=== PATIENT | female | born 1980 | race Caucasian/White ===

== ENCOUNTER → 2017-11-10 10:06 | Outpatient (CLI) | payer OTHER, SELFPAY ==
--- NOTE | 2017-11-10 10:11 | RAD_ITS ---
STUDY: X-RAY CHEST REASON FOR EXAM: Female, 36 years old. Psoriatic arthropathy. TECHNIQUE: PA and lateral views of the chest. COMPARISON: July 10, 2012. FINDINGS: The lungs are clear and expanded. There is no demonstrated pleural abnormality. Normal size heart. Normal mediastinum and paige. Normal visualized pulmonary arteries. Normal visualized aortic arch and descending thoracic aorta. Normal visualized thoracic spine. Normal visualized ribs, clavicles, and shoulders. There is no demonstrated abnormality of the visualized soft tissue structures of the upper abdomen. RAD/Chest PA and Lateral IMPRESSION: No acute cardiopulmonary disease or interval change. Electronically Signed: Kalin Barrios DO at 23:52 EDT Tel [phone], Service support ,
--- NOTE | 2017-11-10 10:11 | RAD_ITS ---
STUDY: X-RAY - PELVIS REASON FOR EXAM: Female, 36 years old. Psoriatic arthropathy. TECHNIQUE: One view of the pelvis was obtained. COMPARISON: None. FINDINGS: There is a non-specific bowel gas pattern. Normal visualized soft tissue structures. Normal bilateral iliac wings, sacroiliac joints and visualized sacrum. Normal visualized bilateral superior and inferior pubic rami. Normal pubic symphysis. Normal ischial tuberosities. Normal visualized right femoral head. Normal right acetabulum. Normal right hip joint. Normal visualized left femoral head. Normal left acetabulum. Normal left hip joint. RAD/Pelvis 1 or 2 Views IMPRESSION: Normal x-ray examination of the pelvis. Electronically Signed: Kalin Barrios DO at 23:53 EDT Tel [phone], Service support ,
[2017-11-10 12:47] LABS: AST(SGOT) 17 U/L (15-37); Alanine Aminotransfer ALT/SGPT 23 U/L (13-56); Albumin, Serum 3.7 g/dL (3.2-5.0); Alkaline Phosphatase 110 U/L (45-117); Anion Gap 10 (5-15); BUN 9 mg/dL (7-18); BUN/Creat Ratio 11.1 RATIO (10-20); CRP < 2.90 mg/L (0.0-3.0); Calcium,Total 9.2 mg/dL (8.5-10.1); Chloride 105 mmol/L (98-107); Creatinine, Serum 0.81 mg/dL (0.55-1.02); EST Glomerular Filtration Rate 83 mL/min (>60); Est Glom Filt Rate - Afr Amer 101 mL/min (>60); Globulin 3.8 g/dL (2.2-4.2); Glucose 89 mg/dL (74-106); Potassium 4.1 mmol/L (3.5-5.1); Protein, Total 7.5 g/dL (6.4-8.2); Rheumatoid Factor < 10.0 IU/mL (<15); Sodium Level 141 mmol/L (136-145)
[2017-11-10 13:20] LABS: Absolute Lymphocyte Count 1.49 X10^3/ul (0.83-4.51); Absolute Neutrophil Count 2.5 X10^3/uL (2.0-7.7); Basophil# 0.04 X10^3/uL; Basophil% 0.9 % (0-1); Eosinophil# 0.06 X10^3/uL; Eosinophils% 1.3 % (0-5); Hematocrit 42.8 % (37-47); Hemoglobin 14.2 g/dl (12.0-15.0); Lymphocyte # 1.49 X10^3/ul (4.0); Lymphocyte % 32.3 % (19-41); Mean Corp Hgb Conc 33.2 g/gl (32-36); Mean Corpuscular Hgb 30.3 pg (27.0-32.0); Mean Corpuscular Volume 91.3 fL (81-99); Mean Platelet Vol. 9.5 fl (6.2-12.0); Monocyte# 0.52 X10^3/uL; Monocyte% 11.3 % (0-10); Neutrophil # 2.51 X10^3/uL (2.7-7.7); Neutrophil % 54.2 % (47-70); Platelet Count 332 K/mm3 (150-450); RBC Distribution Width CV 12.9 % (11.6-14.6); RBC Distribution Width SD 42.6 fl (35.1-43.9); Red Blood Count 4.69 M/mm3 (4.2-5.4); White Blood Count 4.6 K/mm3 (4.4-11.0)
[2017-11-10 13:24] LABS: POSITIVE COUNT NO; POSITIVE DIFFERENTIAL NO; POSITIVE MORPHOLOGY NO
[2017-11-10 13:42] LABS: Erythrocyte Sedimentation Rate 4 mm/hr (0-20)
[2017-11-12 09:09] LABS: ANTINUCLEAR ANTIBODIES DIRECT Negative (Negative)
[2017-11-16 18:43] LABS: QNTFERON TB Ag Minus Nil Value < 0 IU/mL (.); QNTFERON TB Ag Value 0.05 IU/mL (.); QNTFERON TB Mitogen Value > 10.00 IU/mL (.); QNTFERON TB Nil Value 0.06 IU/mL (.)
[2017-11-17 11:27] LABS: CCP IgG Antibodies 5 units (0-19); HEPATITIS B SURFACE AG Negative (Negative); HLA B27 Positive (.); Hep B Surface Antibodies Reactive (.); Hep C Antibodies <0.1 s/co ratio (0.0-0.9); QNTIFERON TB Gold Negative (Negative)
== END ==
PROVIDERS: Family Provider Family Medicine; PCP Family Medicine; Visit Provider Internal Medicine Rheumatology
DX: L40.59 Other psoriatic arthropathy (principal); L40.8 Other psoriasis; M51.37 Other intervertebral disc degeneration, lumbosacral region
CPT/HCPCS: 36415; 71046; 72170; 80053; 81374; 85025; 85652; 86038; 86140; 86200; 86431; 86480; 86706; 86803; 87340

== ENCOUNTER → 2018-02-08 16:23 | Outpatient (CLI) | payer OTHER, SELFPAY ==
[2017-01-12 10:55] VITALS: BMI 32.1
[2018-02-08 18:04] LABS: Absolute Lymphocyte Count 2.29 X10^3/ul (0.83-4.51); Absolute Neutrophil Count 3.1 X10^3/uL (2.0-7.7); Basophil# 0.03 X10^3/uL; Basophil% 0.5 % (0-1); Eosinophil# 0.11 X10^3/uL; Eosinophils% 1.7 % (0-5); Hematocrit 41.8 % (37-47); Lymphocyte # 2.29 X10^3/ul (4.0); Lymphocyte % 36.3 % (19-41); Mean Corp Hgb Conc 33.5 g/gl (32-36); Mean Corpuscular Hgb 30.3 pg (27.0-32.0); Mean Corpuscular Volume 90.5 fL (81-99); Mean Platelet Vol. 10.1 fl (6.2-12.0); Monocyte# 0.76 X10^3/uL; Neutrophil # 3.11 X10^3/uL (2.7-7.7); Neutrophil % 49.3 % (47-70); Platelet Count 343 K/mm3 (150-450); RBC Distribution Width CV 12.5 % (11.6-14.6); Red Blood Count 4.62 M/mm3 (4.2-5.4); White Blood Count 6.3 K/mm3 (4.4-11.0)
[2018-02-08 18:08] LABS: AST(SGOT) 15 U/L (15-37); Alanine Aminotransfer ALT/SGPT 21 U/L (13-56); Albumin, Serum 3.8 g/dL (3.2-5.0); Alkaline Phosphatase 111 U/L (45-117); Anion Gap 4 (5-15); BUN 11 mg/dL (7-18); BUN/Creat Ratio 14.1 RATIO (10-20); Calcium,Total 9.6 mg/dL (8.5-10.1); Chloride 105 mmol/L (98-107); Creatinine, Serum 0.78 mg/dL (0.55-1.02); EST Glomerular Filtration Rate 88 mL/min (>60); Est Glom Filt Rate - Afr Amer 106 mL/min (>60); Globulin 3.7 g/dL (2.2-4.2); Glucose 87 mg/dL (74-106); Protein, Total 7.5 g/dL (6.4-8.2); Sodium Level 138 mmol/L (136-145)
[2018-02-08 18:18] LABS: POSITIVE COUNT NO; POSITIVE DIFFERENTIAL NO; POSITIVE MORPHOLOGY NO
--- OUTSIDE RECORDS SUMMARY | 2018-05-13 09:09 | XMS RPT_ITS ---
:1980 Author Organization OH[facility] Care Team Providers Name Role Phone DARREN IVORY Attending Unavailable DARREN IVORY Attending Unavailable MARICHUY GONZALEZ (HAND FILER BALANCE WHEEL) Attending Unavailable MARICHUY GONZALEZ (HAND FILER BALANCE WHEEL) Referring Unavailable DARREN IVORY Attending Unavailable DARREN IVORY Referring Unavailable Lesia Carrera Attending Unavailable Lesia Carrera Referring Unavailable Stuart Grimes Primary Care Unavailable Lesia Carrera Attending Unavailable Lesia Carrera Referring Unavailable Stuart Grimes Primary Care Unavailable PROBLEMS PROBLEMS DATE TYPE CONDITION / CODE ATTENDING STATUS SOURCE 11/10/2017 Unknown 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, 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 / Hospital L40.59(ICD-10) Repository 11/10/2017 Unknown L40.8 - Other Vellanki, Lesia Active [facility] psoriasis / Community L40.8(ICD-10) Hospital Repository 11/10/2017 Unknown M51.37 - Other Debi Lesia Active [facility] intervertebral disc [facility] degeneration, Hospital lumbosacral region / Repository M51.37(ICD-10) 09/16/2017 Active Pain in unspecified NA Active [facility] M25.50(ICD-10) [facility] Repository 08/17/2017 Active Change in bowel NA Active [facility] R19.4(ICD-10) [facility] Repository 08/17/2017 Active Diarrhea, NA Active [facility] unspecified / [facility] R19.7(ICD-10) [facility] Repository 08/17/2017 Active Gastro-esophageal NA Active [facility] reflux disease [facility] without esophagitis [facility] / K21.9(ICD-10) Repository PROCEDURES PROCEDURES No Procedure Records FoundRESULTS RESULTS COMPREHENSIVE METABOLIC Collected: 02/08/2018 Status: F Source: [facility] [place] 4:27 PM [facility] REPOSITORY TYPE CODE TESTS RESULT OUT OF RANGE REFERENCE UNITS LAB L501.0100 74-106 mg/dL Normal GLU 87 Result Comment: Please note revised GLUCOSE reference range effective 2017. LAB L501.1000 7-18 mg/dL Normal BUN 11 LAB L501.1100 0.55-1.02 mg/dL Normal CREAT,SERUM 0.78 Result Comment: The validity of the calculated GFR AND GFRAA in patients over 70 years has not been determined. Clinical correlation is essential. LAB L501.1110 >60 mL/min Normal EST GFR 88 Result Comment: Non- GFR Calc LAB L501.1115 >60 mL/min Normal EST GFR - AA 106 Result Comment: GFR Calc LAB L501.1300 10-20 RATIO Normal BUN/CRE 14.1 LAB L501.1500 6.4-8.2 g/dL T Normal PROT 7.5 LAB L501.1800 3.2-5.0 g/dL Normal ALB 3.8 LAB L501.1950 2.2-4.2 g/dL Normal GLOB 3.7 LAB L501.2000 0.9-2.4 RATIO Normal A/G 1.0 LAB L501.2200 8.5-10.1 mg/dL CA Normal 9.6 LAB L501.4100 15-37 U/L Normal AST 15 LAB L501.4305 45-117 U/L Normal ALK P 111 LAB L501.4405 13-56 U/L Normal ALT 21 LAB L501.4600 0.20-1.00 mg/dL T Normal BILI 0.60 LAB L501.5300 136-145 mmol/L NA Normal 138 LAB L501.5600 3.5-5.1 mmol/L K Normal 4.0 LAB L501.5900 98-107 mmol/L CL Normal 105 LAB L501.6100 21.0-32.0 mmol/L Normal CO2 29.0 LAB L501.6200 5-15 Low GAP 4 Performed By: #### L500.4050 #### [facility] [address] [place], [place], [address] CBC W/DIFF, AUTOMATED Collected: 02/08/2018 Status: F Source: [place] 4:27 PM [facility] REPOSITORY TYPE CODE TESTS RESULT OUT OF RANGE REFERENCE UNITS LAB L100.1000 4.4-11.0 K/mm3 Normal WBC 6.3 LAB L100.1200 4.2-5.4 M/mm3 Normal RBC 4.62 LAB L100.1300 12.0-15.0 g/dl Normal HGB 14.0 LAB L100.1400 37-47 % Normal HCT 41.8 LAB L100.1500 81-99 fL Normal MCV 90.5 LAB L100.1600 27.0-32.0 pg Normal MCH 30.3 LAB L100.1700 32-36 g/gl Normal MCHC 33.5 LAB L100.1810 11.6-14.6 % Normal RDW CV 12.5 LAB L100.1820 35.1-43.9 fl Normal RDW SD 41.0 LAB L100.1900 150-450 K/mm3 Normal PLT 343 LAB L100.2000 6.2-12.0 fl Normal MPV 10.1 LAB L100.2100 47-70 % Normal NEUT% 49.3 LAB L100.2200 19-41 % Normal LY% 36.3 LAB L100.2300 0-10 % High MONO% 12.0 LAB L100.2400 0-5 % Normal EO% 1.7 LAB L100.2500 0-1 % Normal BASO% 0.5 LAB L100.2550 0.0-0.9 % Normal IM GRAN % 0.200 Result Comment: IG% - Immature Granulocytes (promyelocytes, myelocytes and metamyelocytes) > 1% indicates that a LEFT SHIFT is Present. LAB L100.2620 2.0-7.7 X10 3/uL Normal Absolute Neut 3.1 LAB L100.2720 0.83-4.51 X10 3/ul Normal Absolute Lymph 2.29 Performed By: #### L100.0100 #### [facility] [address] [place], [address] COMPREHENSIVE METABOLIC Collected: 11/10/2017 Status: F Source: [facility] 10:13 AM [facility] REPOSITORY TYPE CODE TESTS RESULT OUT OF RANGE REFERENCE UNITS LAB L501.0100 74-106 mg/dL Normal GLU 89 Result Comment: Please note revised GLUCOSE reference range effective 2017. LAB L501.1000 7-18 mg/dL Normal BUN 9 LAB L501.1100 0.55-1.02 mg/dL Normal CREAT,SERUM 0.81 Result Comment: The validity of the calculated GFR AND GFRAA in patients over 70 years has not been determined. Clinical correlation is essential. LAB L501.1110 >60 mL/min Normal EST GFR 83 Result Comment: Non- GFR Calc LAB L501.1115 >60 mL/min Normal EST GFR - AA 101 Result Comment: GFR Calc LAB L501.1300 10-20 RATIO Normal BUN/CRE 11.1 LAB L501.1500 6.4-8.2 g/dL T Normal PROT 7.5 LAB L501.1800 3.2-5.0 g/dL Normal ALB 3.7 LAB L501.1950 2.2-4.2 g/dL Normal GLOB 3.8 LAB L501.2000 0.9-2.4 RATIO Normal A/G 1.0 LAB L501.2200 8.5-10.1 mg/dL CA Normal 9.2 LAB L501.4100 15-37 U/L Normal AST 17 LAB L501.4305 45-117 U/L Normal ALK P 110 LAB L501.4405 13-56 U/L Normal ALT 23 LAB L501.4600 0.20-1.00 mg/dL T Normal BILI 0.80 LAB L501.5300 136-145 mmol/L NA Normal 141 LAB L501.5600 3.5-5.1 mmol/L K Normal 4.1 LAB L501.5900 98-107 mmol/L CL Normal 105 LAB L501.6100 21.0-32.0 mmol/L Normal CO2 26.0 LAB L501.6200 5-15 Normal GAP 10 Performed By: #### L500.4050, L501.6710, L505.7010 #### [facility] [address] [place], [address] CRP Collected: 11/10/2017 Status: F Source: [place] 10:13 AM [facility] REPOSITORY TYPE CODE TESTS RESULT OUT OF RANGE REFERENCE UNITS LAB L501.6710 0.0-3.0 mg/L Normal < 2.90 C-REACTIVE PROT Result Comment: C-Reactive Protein (CRP) provides useful information for the diagnosis, therapy and monitoring of inflammatory processes and associated diseases. For the evaluation of Relative Risk for Cardiovascular Disease, a High Sensitivity CRP (HSCRP) should be ordered. Performed By: #### L500.4050, L501.6710, L505.7010 #### [facility] [address] [place], [address] RHEUMATOID FACTOR Collected: 11/10/2017 Status: F Source: [place] 10:13 AM [facility] REPOSITORY TYPE CODE TESTS RESULT OUT OF RANGE REFERENCE UNITS LAB L505.7010 <15 IU/mL Normal RHEUMATOID FAC < 10.0 Performed By: #### L500.4050, L501.6710, L505.7010 #### [facility] [address] [place], [address] CBC W/DIFF, AUTOMATED Collected: 11/10/2017 Status: F Source: [place] 10:13 AM [facility] REPOSITORY TYPE CODE TESTS RESULT OUT OF RANGE REFERENCE UNITS LAB L100.1000 4.4-11.0 K/mm3 Normal WBC 4.6 LAB L100.1200 4.2-5.4 M/mm3 Normal RBC 4.69 LAB L100.1300 12.0-15.0 g/dl Normal HGB 14.2 LAB L100.1400 37-47 % Normal HCT 42.8 LAB L100.1500 81-99 fL Normal MCV 91.3 LAB L100.1600 27.0-32.0 pg Normal MCH 30.3 LAB L100.1700 32-36 g/gl Normal MCHC 33.2 LAB L100.1810 11.6-14.6 % Normal RDW CV 12.9 LAB L100.1820 35.1-43.9 fl Normal RDW SD 42.6 LAB L100.1900 150-450 K/mm3 Normal PLT 332 LAB L100.2000 6.2-12.0 fl Normal MPV 9.5 LAB L100.2100 47-70 % Normal NEUT% 54.2 LAB L100.2200 19-41 % Normal LY% 32.3 LAB L100.2300 0-10 % High MONO% 11.3 LAB L100.2400 0-5 % Normal EO% 1.3 LAB L100.2500 0-1 % Normal BASO% 0.9 LAB L100.2550 0.0-0.9 % Normal IM GRAN % 0.000 Result Comment: IG% - Immature Granulocytes (promyelocytes, myelocytes and metamyelocytes) > 1% indicates that a LEFT SHIFT is Present. LAB L100.2620 2.0-7.7 X10 3/uL Normal Absolute Neut 2.5 LAB L100.2720 0.83-4.51 X10 3/ul Normal Absolute Lymph 1.49 Performed By: #### L100.0100, L101.9900 #### [facility] [address] [place], [place], [address] ERYTHROCYTE SED RATE Collected: 11/10/2017 Status: F Source: [place] 10:13 AM [facility] REPOSITORY TYPE CODE TESTS RESULT OUT OF RANGE REFERENCE UNITS LAB L102.0000 0-20 mm/hr Normal SED RATE 4 Performed By: #### L100.0100, L101.9900 #### [facility] [address] [place], [place], [address] ANTINUCLEAR ANTIBODIES Collected: 11/10/2017 Status: F Source: [facility] DIRECT 10:13 AM [facility] REPOSITORY TYPE CODE TESTS RESULT OUT OF RANGE REFERENCE UNITS LAB L3100.5475 Negative Normal Negative ARTURO-DIRECT Result Comment: Performed at: - [facility] [id number] Mushroom Farmer: Donaldo Nguyen PhD, Phone: [phone] Performed By: #### L3100.5475 #### [facility] (refer to report for specific site) refer to report for address and phone number HEPATITIS B SURFACE Collected: 11/10/2017 Status: F Source: [place] [place] 10:13 AM [facility] REPOSITORY TYPE CODE TESTS RESULT OUT OF RANGE REFERENCE UNITS LAB L3100.0400 Negative Normal HB Negative SURF AG Result Comment: Performed at: - [facility], [place], [place] [id number] Mushroom Farmer: Donaldo Nguyen PhD, Phone: [phone] Performed at: 2Q - [facility] [id number] Mushroom Farmer: Dagoberto Poon PhD, Phone: [phone] Performed at: BN - [facility] [id number] Mushroom Farmer: Bryson Zimmerman MD, Phone: [phone] Performed By: #### L3100.0390, L3100.0528, L3100.0625, L3400.7000, L3410.1400, L4600.0100 #### [facility] (refer to report for specific site) refer to report for address and phone number HEP B SURFACE Collected: 11/10/2017 Status: F Source: [facility] ANTIBODIES 10:13 AM [facility] REPOSITORY TYPE CODE TESTS RESULT OUT OF RANGE REFERENCE UNITS LAB L3100.0528 . Normal Hep B Reactive Vanessa AB Result Comment: Non Reactive: Inconsistent with immunity, less than 10 mIU/mL Reactive: Consistent with immunity, greater than 9.9 mIU/mL Performed By: #### L3100.0390, L3100.0528, L3100.0625, L3400.7000, L3410.1400, L4600.0100 #### [facility] (refer to report for specific site) refer to report for address and phone number HEPATITIS C ANTIBODIES Collected: 11/10/2017 Status: F Source: [facility] 10:13 AM [facility] REPOSITORY TYPE CODE TESTS RESULT OUT OF RANGE REFERENCE UNITS LAB L3100.0650 0.0-0.9 s/co ratio Normal HEP C AB <0.1 Result Comment: Negative: < 0.8 Indeterminate: 0.8 - 0.9 Positive: > 0.9 The CDC recommends that a positive HCV antibody result be followed up with a HCV Nucleic Acid Amplification test (756699). Performed By: #### L3100.0390, L3100.0528, L3100.0625, L3400.7000, L3410.1400, L4600.0100 #### [facility] (refer to report for specific site) refer to report for address and phone number QUANTIFERON TB-GOLD Collected: 11/10/2017 Status: F Source: [place] 10:13 AM [facility] REPOSITORY TYPE CODE TESTS RESULT OUT OF RANGE REFERENCE UNITS LAB L3400.7025 Negative Normal QFT Negative TB GOLD Result Comment: The specimen received for QuantiFERON testing was incubated by the ordering institution. Specific procedures outlined in our Directory of Services and in the package insert for the QuantiFERON Gold (In Tube) test must be followed to enable for proper stimulation of cells for the production of interferon gamma. LAB L3400.7035 . Normal QFT TB Comment POS CRIT Result Comment: To be considered positive a specimen should have a TB Ag minus Nil value greater than or equal to 0.35 IU/mL and in addition the TB Ag minus Nil value must be greater than or equal to 25% of the Nil value. There may be insufficient information in these values to differentiate between some negative and some indeterminate test values. LAB L3400.7045 . IU/mL Normal QFT TB AB 0.05 VALUE LAB L3400.7055 . IU/mL Normal QFT NIL VALUE 0.06 LAB L3400.7065 . IU/mL > Normal QFT MITOGEN 10.00 ZENA LAB L3400.7075 . IU/mL < Normal QFT AG - NIL 0 LAB L3400.7085 . Normal QFT TB INTER Comment Result Comment: The QuantiFERON TB Gold (in Tube) assay is intended for use as an aid in the diagnosis of TB infection. Negative results suggest that there is no TB infection. In patients with high suspicion of exposure, a negative test should be repeated. A positive test indicates infection with Mycobacterium tuberculosis. Among individuals without tuberculosis infection, a positive test may be due to exposure to M. kansasii, M. szulgai or M. marinum. On the Internet, go to cdc.gov/tb for further details. Effective fall, [facility] number [id number] QuantiFERON Client Incubated with three tube collection kit will be made non-orderable following depletion of collection and testing kits. *[employer] offers [id number] QuantiFERON-TB Plus (Client Incubated)* with four tube collection kit. Performed By: #### L3100.0390, L3100.0528, L3100.0625, L3400.7000, L3410.1400, L4600.0100 #### [facility] (refer to report for specific site) refer to report for address and phone number HLA B27 Collected: 11/10/2017 Status: F Source: [place] 10:13 AM [facility] REPOSITORY TYPE CODE TESTS RESULT OUT OF RANGE REFERENCE UNITS LAB L3410.1500 . Normal HLA Positive B27 Result Comment: HLA-B*27 Positive This patient is positive for HLA-B*27. This procedure rules out the B*27:06 and 27:09 alleles, which the literature suggests are not associated with spondyloarthropathies. B27 allele interpretation for all loci based on IMGT/HLA database version 3.27 This test was developed and its performance characteristics determined by [facility]. It has not been cleared or approved by the Food and Drug Administration. [facility] CLIA ID Number [id number] This test was performed using PCR (Polymerase Chain Reaction)/SSOP (Sequence Specific Oligonucleotide Probes) technique. SBT (Sequence Based Typing) and/or SSP (Sequence Specific Primers) may be used as supplemental methods when necessary. Please contact [facility] Customer Service at if you have any questions. Director of [facility] Dr Dagoberto Poon, PhD Performed By: #### L3100.0390, L3100.0528, L3100.0625, L3400.7000, L3410.1400, L4600.0100 #### [facility] (refer to report for specific site) refer to report for address and phone number CCP IGG ANTIBODIES Collected: 11/10/2017 Status: F Source: [place] 10:13 AM [facility] REPOSITORY TYPE CODE TESTS RESULT OUT OF RANGE REFERENCE UNITS LAB L4600.0100 0-19 units Normal ANTI-CCP 5 [id number] Result Comment: Negative <20 Weak positive 20 - 39 Moderate positive 40 - 59 Strong positive >59 Performed By: #### L3100.0390, L3100.0528, L3100.0625, L3400.7000, L3410.1400, L4600.0100 #### [facility] (refer to report for specific site) refer to report for address and phone number CHEST PA AND LATERAL Observed: 11/10/2017 Status: F Source: [place] 10:12 AM [facility] REPOSITORY [facility] Imaging Services [address] [facility] [place] [address] Chest PA and Lateral MR#: [id number] Acct: [id number] Name: JOVITA FRANCES Rep #: [id number] : 1980 F 36 From: Kalin Barrios DO PCP: Stuart Grimes MD Status: REG CLI Study: Chest PA and Lateral Date of Exam: 11/10/17 Exam# [id number] Ordering Dr: Lesia Carrera MD STUDY: X-RAY CHEST REASON FOR EXAM: Female, 36 years old. Psoriatic arthropathy. TECHNIQUE: PA and lateral views of the chest. COMPARISON: July 10, 2012. FINDINGS: The lungs are clear and expanded. There is no demonstrated pleural abnormality. Normal size heart. Normal mediastinum and paige. Normal visualized pulmonary arteries. Normal visualized aortic arch and descending thoracic aorta. Normal visualized thoracic spine. Normal visualized ribs, clavicles, and shoulders. There is no demonstrated abnormality of the visualized soft tissue structures of the upper abdomen. RAD/Chest PA and Lateral IMPRESSION: No acute cardiopulmonary disease or interval change. Electronically Signed: Kalin Barrios DO at 23:52 EDT Tel [phone], Service support , CC: Stuart Grimes MD; Lesia Carrera MD Catastrophe Claims Supervisor: Signed PELVIS 1 OR 2 VIEWS Observed: 11/10/2017 Status: F Source: [place] 10:12 AM [facility] REPOSITORY [facility] Services [address] [place] [address] Pelvis 1 or 2 Views MR#: [id number] Acct: [id number] Name: BETY FRANCESTom Cameron Rep #: [id number] : 1980 F 36 From: Kalin Barrios DO PCP: Stuart Grimes MD Status: REG CLI Study: Pelvis 1 or 2 Views Date of Exam: 11/10/17 Exam# [id number] Ordering Dr: Lesia Carrera MD STUDY: X-RAY - PELVIS REASON FOR EXAM: Female, 36 years old. Psoriatic arthropathy. TECHNIQUE: One view of the pelvis was obtained. COMPARISON: None. FINDINGS: There is a non-specific bowel gas pattern. Normal visualized soft tissue structures. Normal bilateral iliac wings, sacroiliac joints and visualized sacrum. Normal visualized bilateral superior and inferior pubic rami. Normal pubic symphysis. Normal ischial tuberosities. Normal visualized right femoral head. Normal right acetabulum. Normal right hip joint. Normal visualized left femoral head. Normal left acetabulum. Normal left hip joint. RAD/Pelvis 1 or 2 Views IMPRESSION: Normal x-ray examination of the pelvis. Electronically Signed: Kalin Barrios DO at 23:53 EDT Tel [phone], Service support , CC: Stuart Grimes MD; Lesia Carrera MD Catastrophe Claims Supervisor: Signed PROGRESS Observed: 09/16/2017 Status: COMPLETED Source: [place] 11:[address] [facility] REPOSITORY O ID: [id number] Author: Darren Ivory V Service: (none) Author Type: Physician Type: Progress Notes Filed: 09/16/2017 11:22 AM Note Text: SELF Ms. Frances presents today for follow-up of right anterior shoulder pain. She was seen 3 months ago and received a cortisone injection to the acromioclavicular joint at that time. She states that the injection helped a lot, reducing pain along with Meloxicam. She stopped taking meloxicam 3 weeks ago and shoulder symptoms have returned. She also has concerns of increased SI and low back pain since stopping meloxicam. She has a family history of psoriatic arthritis, and she has psoriatic rash on chest. Denies that neck motion reproduces the pain Denies pain below the elbow Denies numbness or tingling in the arm ALLERGIES: Cephalexin; Penicillins; Ultram [Tramadol Hcl] Examination: Right shoulder tender to palpation over the front of the acromioclavicular joint. His crepitus with palpation during range of motion of the shoulder, primarily adduction. ROTATOR CUFF STRENGTH: Normal IMPINGEMENT SIGN: Positive Ellis test. 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 The risk, benefits and alternatives of injection and no injection therapy were discussed. Personnel were discussed and the patient consented for an injection. The patient has been identified by name and birthdate. The injection site was identified, marked and prepped with a alcohol swab. Time out completed. The right acromioclavicular joint was injected with a 25 gauge needle with 1cc Celestone (3 mg), 2cc xylocaine plain 1%. The injection site was then dressed with a bandaid. The patient tolerated the injection well. The patient was instructed to call the office if any adverse local effects occurred or any if any questions or concerns arise. Darren Ivory DO SED RATE Collected: 09/16/2017 Status: F Source: [place] 10:[address] [facility] REPOSITORY TYPE CODE TESTS RESULT OUT OF REFERENCE UNITS RANGE LAB WSR 0-20 mm/hr Sed Rate Westergren 8 Performed By: #### WSR, RF, ANAIFS, ANABLL, HLAB27 #### [facility] [address] [place] [address] RHEUMATOID FACTOR Collected: 09/16/2017 Status: F Source: [place] 10:[address] [facility] REPOSITORY TYPE CODE TESTS RESULT OUT OF REFERENCE UNITS RANGE LAB RF <16 IU/mL Rheumatoid <10 Factor Performed By: #### WSR, RF, ANAIFS, ANABLL, HLAB27 #### [facility] [address] [place] [address] ARTURO BY IFA Collected: 09/16/2017 Status: F Source: [place] 10:[address] [facility] REPOSITORY TYPE CODE TESTS RESULT OUT OF RANGE REFERENCE UNITS LAB ANASC Negative Abnormal Alert ARTURO Positive Result Comment: Normal range : negative at <1:80 serum dilution. LAB TANVI Negative Abnormal 1:80 Alert ARTURO Titer LAB ANAP Homogeneous ARTURO Pattern Performed By: #### WSR, RF, ANAIFS, ANABLL, HLAB27 #### [facility] [address] [place] [id number] ARTURO IFA TITER BILL Collected: 09/16/2017 Status: F Source: [place] 10:[address] [facility] REPOSITORY TYPE CODE TESTS RESULT OUT OF REFERENCE UNITS RANGE LAB ANABLL ARTURO Billed for IFA Titer services Bill performed Performed By: #### WSR, RF, ANAIFS, ANABLL, HLAB27 #### [facility] [address] [place] [address] HLA B 27 Collected: 09/16/2017 Status: F Source: [place] 10:[address] [facility] REPOSITORY TYPE CODE TESTS RESULT OUT OF RANGE REFERENCE UNITS LAB HLAB27 Negative Abnormal Alert HLA B Positive 27 Performed By: #### WSR, RF, ANAIFS, ANABLL, HLAB27 #### [facility] [address] [place] [address] PROGRESS Observed: 09/16/2017 Status: COMPLETED Source: [place] 10:[address] [facility] REPOSITORY HNO ID: [id number] Author: Shayla Ramírez Ma Service: (none) Author Type: (none) Type: Progress Notes Filed: 09/16/2017 11:22 AM Note Text: AMB ROOMING INTAKE FLOWSHEET DATA Risk Screening Do you have concerns about personal safety or safety in the home?: No Pain Pain Score: 5/10 Pain Location: Shoulder-Right Description: Aching Duration Amount of Time: (ongoing) Frequency: Continuous Intervention: Other: See comment (none) Patient here today for 3 month follow up arthritis right AC joint with injection given. Patient reports she had good relief from the injection. She was taking Meloxicam and it was helping her shoulder pain, but she developed some GI symptoms and she stopped taking it. Stomach issues are now resolving, but her shoulder pain has returned since she stopped taking the meloxicam. CNOV Observed: 09/16/2017 Status: COMPLETED Source: [place] 10:00 AM [facility] [place] REPOSITORY Office Visit (UC) JOVITA FRANCES ([id number]) 1980 F Date Time Provider Department 09/16/17 10:00 AM DARREN IVORY During your visit today, we recorded the following information about you: Shayla Ramírez Ma 09/16/2017 11:22 AM Signed AMB ROOMING INTAKE FLOWSHEET DATA Risk Screening Do you have concerns about personal safety or safety in the home?: No Pain Pain Score: 5/10 Pain Location: Shoulder-Right Description: Aching Duration Amount of Time: (ongoing) Frequency: Continuous Intervention: Other: See comment (none) Patient here today for 3 month follow up arthritis right AC joint with injection given. Patient reports she had good relief from the injection. She was taking Meloxicam and it was helping her shoulder pain, but she developed some GI symptoms and she stopped taking it. Stomach issues are now resolving, but her shoulder pain has returned since she stopped taking the meloxicam. Darren Iovry DO 09/16/2017 11:22 AM Signed SELF Ms. Frances presents today for follow-up of right anterior shoulder pain. She was seen 3 months ago and received a cortisone injection to the acromioclavicular joint at that time. She states that the injection helped a lot, reducing pain along with Meloxicam. She stopped taking meloxicam 3 weeks ago and shoulder symptoms have returned. She also has concerns of increased SI and low back pain since stopping meloxicam. She has a family history of psoriatic arthritis, and she has psoriatic rash on chest. Denies that neck motion reproduces the pain Denies pain below the elbow Denies numbness or tingling in the arm ALLERGIES: Cephalexin; Penicillins; Ultram [Tramadol Hcl] Examination: Right shoulder tender to palpation over the front of the acromioclavicular joint. His crepitus with palpation during range of motion of the shoulder, primarily adduction. ROTATOR CUFF STRENGTH: Normal IMPINGEMENT SIGN: Positive Ellis test. 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 The risk, benefits and alternatives of injection and no injection therapy were discussed. Personnel were discussed and the patient consented for an injection. The patient has been identified by name and birthdate. The injection site was identified, marked and prepped with a alcohol swab. Time out completed. The right acromioclavicular joint was injected with a 25 gauge needle with 1cc Celestone (3 mg), 2cc xylocaine plain 1%. The injection site was then dressed with a bandaid. The patient tolerated the injection well. The patient was instructed to call the office if any adverse local effects occurred or any if any questions or concerns arise. Darren Ivory DO Referring Provider: SELF [200] Allergies As of Date: 09/16/2017 Noted Allergy Reaction CEPHALEXIN 03/13/2004 PENICILLINS 12/30/2003 ULTRAM (TRAMADOL HCL) 12/05/2011 4 - Hives Date Reviewed: 09/16/2017 Reviewed by: Shayla Ramírez Ma - Fully Assessed Reason for Visit: Established Patient [175] Cmt: 3 month post visit arthritis right AC joint with injection given Primary Visit Diagnosis:Arthritis of right acromioclavicular joint [M19.011] Other Visit Diagnosis:Polyarthralgia [M25.50] Order(s):ARTURO BY IFA SCREEN [SQANAIFS] Order #: [id number] FUTURE SED RATE WESTERGREN [SQWSR] Order #: [id number] FUTURE HLA B27 BLOOD [UTLGOO30] Order #: [id number] FUTURE RHEUMATOID FACTOR BL [SQRF] Order #: [id number] FUTURE [] betamethasone acetate-betamethasone sodium phosphate 6 mg injection (CELESTONE)Disp: Rfl: Prescriptions as of 09/16/2017 Sig: RANITIDINE 150 MG TABLET Take 1 tablet by mouth once d* FLUTICASONE 50 MCG/ACTUATION * Use 2 Sprays in each nostril * MELOXICAM 15 MG TABLET Take 1 tablet by mouth once d* Medication notes this encounter MELOXICAM 15 MG TABLET >> Shayla Ramírez Ma 09/16/2017 10:12 AM >> SHAYLA RAMÍREZ MA ThuSep 16, 2017 10:12 AM Stopped taking because of GI upset. Problem List As Of Date 09/16/2017 Noted Resolved GERD (Gastroesophageal Reflux Disease) [K21.9] INVALID FOR* Venous insufficiency [I87.2] INVALID FOR*05/07/2015 Dysphonia [R49.0] INVALID FOR*05/07/2015 PCOS (polycystic ovarian syndrome) [E28.2] INVALID FOR* Narcolepsy [G47.419] Low back pain [M54.5] INVALID FOR* Chronic GERD [K21.9] INVALID FOR*05/16/2015 Prescriptions ordered this encounter Disp Refills Start End BETAMETHASONE ACETATE AND SODIUM DONNA* 09/16/2017 09/16/2017 Route: OTHER Encounter Status:Closed by DARREN IVORY DO, V on 09/16/17 CNCO Observed: 08/18/2017 Status: COMPLETED Source: [place] 12:[address] [facility] REPOSITORY Letter Text [address] [place] [address] [phone] 08/18/2017 Jovita Frances [facility] [address] Dear Mrs. Frances: Due to a change in the provider's schedule, it has been necessary to reschedule your appointment. Enclosed please find a new appointment reminder that will replace the one previously sent to you. If this appointment is not convenient for you, please contact our office at [phone]. Thank you for choosing the [facility] as your Healthcare Provider. Sincerely, Appointment Office Department of Gastroenterology Enclosure CBC AND DIFFERENTIAL Collected: 08/17/2017 Status: F Source: [place] 11:[address] [facility] REPOSITORY TYPE CODE TESTS RESULT OUT OF REFERENCE UNITS RANGE LAB WBC 3.70-11.00 k/uL WBC 6.83 LAB RBC 3.90-5.20 m/uL RBC 4.62 LAB HGB 11.5-15.5 g/dL Hemoglobin 13.9 LAB HCT 36.0-46.0 % Hematocrit 43.3 LAB MCV 80.0-100.0 fL MCV 93.7 LAB MCH 26.0-34.0 pG MCH 30.1 LAB MCHC 30.5-36.0 g/dL MCHC 32.1 LAB RDWCV 11.5-15.0 % RDW-CV 13.0 LAB PLTCT 150-400 k/uL Platelet Count 382 LAB MPV 9.0-12.7 fL MPV 10.0 LAB ANEUT % Neut% 65.2 LAB AANEUT 1.45-7.50 k/uL Abs Neut 4.43 LAB ALYMP % Lymph% 22.8 LAB AALYMP 1.00-4.00 k/uL Abs Lymph 1.56 LAB AMONO % [place]% 10.4 LAB AAMONO <0.87 k/uL Abs [place] 0.71 LAB AEOS % Eosin% 0.6 LAB AAEOS <0.46 k/uL Abs Eosin 0.04 LAB ABASO % Baso% 1.0 LAB AABASO <0.11 k/uL Abs Baso 0.07 LAB AUNRBC 0 /100 WBC NRBCs 0.0 LAB ABNRBC <0.01 k/uL Absolute nRBC <0.01 LAB DTYP DTYPE Auto Diff Performed By: #### CBCDIF, CMP, TSH, HPYLRI #### [facility] [address] [place] [id number] COMP METABOLIC PANEL Collected: 08/17/2017 Status: F Source: [place] 11:[address] [facility] REPOSITORY TYPE CODE TESTS RESULT OUT OF REFERENCE UNITS RANGE LAB TP 6.3-8.0 g/dL Protein, Total 7.1 LAB ALB 3.9-4.9 g/dL Albumin 4.3 LAB CA 8.5-10.2 mg/dL Calcium, Total 9.9 LAB TBIL 0.2-1.3 mg/dL Bilirubin, Total 0.9 LAB ALKP 32-117 U/L Alkaline Phosphatase 86 LAB AST 13-35 U/L AST 21 LAB GLU 74-99 mg/dL Glucose 85 Result Comment: The [place] [employer] Association (ADA) provides guidance for cutoff values for fasting glucose and random glucose. The ADA defines fasting as no caloric intake for at least 8 hours. Fas ting plasma glucose results between 100 to 125 mg/dL indicate increased risk for diabetes (prediabetes). Fasting plasma glucose results greater than or equal to 126 mg/dL meet the criteria for diagnosis of diabetes. In the absence of unequivocal hyperglycemia, results should be confirmed by repeat testing. In a patient with classic symptoms of hyperglycemia or hyperglycemic crisis, random plasma glucose results greater than or equal to 200 mg/dL meet the criteria for diagnosis of diabetes. Reference: Standards of Medical Care in Diabetes 2016, [place] [employer]. Diabetes Care. 2016.39(Suppl 1). LAB BUN 7-21 mg/dL BUN 15 LAB CRET 0.58-0.96 mg/dL Creatinine 0.83 LAB NA 136-144 mmol/L Low Sodium 134 LAB K 3.7-5.1 mmol/L Potassium High 5.2 LAB CL 97-105 mmol/L Chloride 99 LAB CO2 22-30 mmol/L CO2 24 LAB AGAP 9-18 mmol/L Anion Gap 11 LAB ALT 7-38 U/L ALT 18 LAB GFRAA eGFR- Amer. >60 LAB GFRNAA . eGFR-All Other Races >60 Result Comment: eGFR (Estimated GFR) Units of measure: mL/min/1.73 meters squared eGFR is derived from the reexpressed MDRD Study equation using the following parameters: serum creatinine, age, gender and race. The creatinine assay has been calibrated to be traceable to IDMS. An eGFR <60 mL/min/1.73m2 for >3 months is consistent with chronic kidney disease. Refer to KDOQI guidelines for clinical interpretation. In patients with unstable renal function, e.g. those with acute kidney injury, the eGFR may not accurately reflect actual GFR. Performed By: #### CBCDIF, CMP, TSH, HPYLRI #### [facility] [address] [place], [place] [address] TSH Collected: 08/17/2017 Status: F Source: [place] 11:34 AM [facility] REPOSITORY TYPE CODE TESTS RESULT OUT OF RANGE REFERENCE UNITS LAB TSH 0.400-5.500 uU/mL TSH 2.060 Result Comment: If the patient is , TSH reference range varies by gestational period: First Trimester 0.100-2.500 uU/mL Second Trimester 0.200-3.000 uU/mL Third Trimester 0.300-3.000 uU/mL References: 1. Wills, Alcides Wilkins, Ector EK, et al. Management of Thyroid Dysfunction during and : An Endocrine Society Clinical Practice Guideline. J Clin Endocrinol Metab, 2012:97:1484-0604. 2. Javon TABARES. Overview of thyroid disease in . UpToDate. 2016. Accessed on August 10, 2015. Performed By: #### CBCDIF, CMP, TSH, HPYLRI #### [facility] [address] [place], [place] [address] HELICO PYLORI AB Collected: 08/17/2017 Status: F Source: [place] 11:[address] [facility] REPOSITORY TYPE CODE TESTS RESULT OUT OF REFERENCE UNITS RANGE LAB HPYLRL Negative H. pylori Negative IgG, Qual Result Comment: H. pylori IgG antibodies were not detected in the sample. Negative results by this test do not preclude recent primary infection. LAB HPYLR U/mL H pylori Ab, IgG <0.4 Result Comment: U/mL are interpreted as follows: Negative specimens <0.9 Indeterminate specimens >=0.9 to <1.1 Positive specimens >=1.1 Results were obtained with the IMMULITE 2000 H.pylori IgG EIA. Results obtained from other manufacturers' assay methods may not be used interchangeably. Performed By: #### CBCDIF, CMP, TSH, HPYLRI #### [facility] [address] [place], [place] [address] PROGRESS Observed: 08/17/2017 Status: COMPLETED Source: [place] 10:[address] [facility] REPOSITORY HNO ID: [id number] Author: Marichuy (Judson) Older Service: (none) Author Type: Nurse Practitioner Type: Progress Notes Filed: 08/17/2017 11:24 AM Note Text: CC: Patient presents with: GI Upset HPI Jovita Frances is a 36 year old female who presents today for change in bowel habits. Multiple soft stools daily and intermittent diarrhea since May. Does not feel like she empties her bowels completely. One episode of blood mixed in the stool in May. Cramping with diarrhea only. Excessive gas and bloating. Heartburn/reflux symptoms, treating with Zantac with relief. Patient reports prior to symptoms starting she had been taking a Aleve daily for shoulder issues. Was changed to Meloxicam by ortho due to GI issues without any improvement. Stopped the Meloxicam one week ago and symptoms have remained the same. Low carb diet, eats a lot of vegetables. No lactose in diet. Drinks a lot of water. In 2002 had intermittent constipation with diarrhea, found to be anemic. Colonoscopy and EGD were normal and immediately after that bowel issues resolved. History of GERD, takes Zantac as needed. Repeat EGD a couple years ago was normal. REVIEW OF SYSTEMS General: no fevers, no chills, no night sweats, no change in appetite, no change in energy and no significant changes in weight GI: Negative for nausea, vomiting Endocrine: no LE edema, no palpitations, no tremors, no weight gain, no weight loss, no hair loss, no dry skin, no cold intolerance, no heat intolerance, menstrual cycles being irregular, no trouble swallowing and no neck pain/pressure Psych: Admits to anxiety and excessive worry, worse at the end of the school year but since summer started she is feeling better. Denies depression. CP PHQ9 08/17/2017 Little interest or pleasure 1 - Several days Feeling down, depressed, hopeless 0 - Not at all Trouble falling or staying asleep, sleeping too much 0 - Not at all Feeling tired, having little energy 1 - Several days Poor appetite or overeating 0 - Not at all Feeling bad about yourself, failure or you have let yourself/family down 0 - Not at all Trouble concentrating on things 0 - Not at all Moving or speaking so slowly, or fidgety or restless 0 - Not at all Thoughts that you would be better off , or of hurting yourself in some way 0 - Not at all How difficult have these problems made things Somewhat difficult Interpretation of Total Score 1-4 Minimal depression DANY-7 ANXIETY SCALE 08/17/2017 FEELING NERVOUS,ANXIOUS,OR ON EDGE 2 Over half the days NOT BEING ABLE TO STOP OR CONTROL WORRYING 1 Several days WORRYING TOO MUCH ABOUT DIFFERENT THINGS 2 Over half the days TROUBLE RELAXING 0 Not at all sure BEING SO RESTLESS THAT IT'S HARD TO SIT STILL 0 Not at all sure BEING EASILY ANNOYED OR IRRITABLE 1 Several days FEELING AFRAID IF SOMETHING AWFUL MIGHT HAPPEN 1 Several days GAD7 SCORE 7 IF YOU CHECKED OFF ANY PROBLEMS Somewhat difficult PAST MEDICAL HISTORY Diagnosis Date - Herniation of left side of L4-L5 intervertebral disc 2014 broad based disc, L side Sciatica. - Iron deficiency anemia 2001 negative colonoscopy and EGD. - Narcolepsy - PCOS (polycystic ovarian syndrome) PAST SURGICAL HISTORY Procedure Laterality Date - BX OF BREAST; NEEDLE CORE 1999 right breast core biopsy - DISKECTOMY, LUMBAR, ADDTNL SP Bilateral 2014 Dr Landon Reyes, L4-L5, L5-S1 - DISKECTOMY, LUMBAR, SINGLE SP 2010 Dr Paul - EGD W/O OR W/BRUSH/WASH 05/16/15 EGD with mac - RIB RESECTION TOTAL 2004, 2006 1st rib resection for Thoracic Outlet - SALPINGECTOMY Bilateral 12/12/2016 laparoscopic-Dr. Sylvia Hernandez ALLERGIES Cephalexin; Penicillins; Ultram [Tramadol Hcl] MEDICATIONS fluticasone (FLONASE) 50 mcg/actuation nasal spray Use 2 Sprays in each nostril once daily. Rinse mouth after use. meloxicam (MOBIC) 15 mg tablet Take 1 tablet by mouth once daily. ranitidine (ZANTAC) 150 mg tablet Take 1 tablet by mouth once daily. #[id number] benzonatate (TESSALON PERLE) 100 mg capsule Take 2 capsules by mouth three times daily as needed. meloxicam (MOBIC) 15 mg tablet Take 1 tablet by mouth once daily. metroNIDAZOLE (FLAGYL) 500 mg tablet Take 1 tablet by mouth three times daily. albuterol HFA (PROAIR HFA) 90 mcg/actuation inhaler Inhale 2 Puffs as instructed every 4 hours as needed. codeine-guaiFENesin (ROBITUSSIN AC) 10-100 mg/5 mL syrup Take 5 mL by mouth four times daily as needed for Cough. May cause drowsiness. ETHINYL ESTRADIOL/DROSPIRENONE (OLAF, 28, ORAL) Take by mouth once daily. metFORMIN ER (GLUCOPHAGE XR) 500 mg 24 hr tablet Take 1,500 mg by mouth daily with breakfast. modafinil (PROVIGIL) 200 mg tablet Take 100 mg by mouth once daily. takes 100 mg daily and may take 100 mg more if needed esomeprazole (NEXIUM) 40 mg capsule Take 1 capsule by mouth daily before breakfast. 1/2 hr before meal. B Complex Vitamins (VITAMIN B COMPLEX) capsule Take 1 capsule by mouth once daily. FAMILY HISTORY Problem Relation Age of Onset - Breast Cancer Paternal Grandmother dx in late 30's bilateral procedures, mid 50's - Breast Cancer Other maternal great aunt - Breast Cancer Other 2 maternal cousins - Breast Cancer Other maternal great grandmother - Stroke Father at age 55 - Thyroid Mother hyperthryroid - Hypertension Mother - pvd [Other] [OTHER] Mother - Hypertension Brother - Lipids Brother - Prostate Cancer Maternal Grandfather - Lung Cancer [Other] [OTHER] Maternal Grandfather - Lung Cancer [Other] [OTHER] Paternal Grandmother - Other Cancers [Other] [OTHER] no known family hx of ovarian, uterine, brain, colon, pancreatic, thyroid, leukemia, melanoma, or sarcoma Social History Substance Use Topics - Smoking status: Never Smoker - Smokeless tobacco: Never Used - Alcohol use 1.5 oz/week 1 Cans of Beer (12oz) per week Comment: occasional PHYSICAL EXAM BP 126/88 (BP Site: Right Arm, BP Position: Sitting, BP Cuff Size: Regular Adult) Pulse 84 Resp 12 Wt 89.5 kg (197 lb 6.4 oz) BMI 33.88 kg/m? General Appearance: well appearing, in no acute distress, alert Pysch: affect is anxious Neck: Thyroid normal size and symmetric without palpable nodules, Neck supple, No adenopathy Lungs: Lungs clear to auscultation. No wheezing, rhonchi, rales Heart: RRR without murmur, gallop, or rubs. No ectopy Abdomen: Abdomen soft, non-distended. mild mid abdominal tenderness with palpation. No guarding or rebound tenderness. Negative Randall's sign. Bowel sounds normal and active. No masses, organomegaly. ASSESSMENT/PLAN: 1. Change in bowel habit - ICD9: 787.99, ICD10: R19.4 (primary diagnosis) Differential diagnoses includes IBS, GERD, H. pylori - CONSULT TO GASTROENTEROLOGY for further evaluation and recommendations Check: - CBC + DIFF - COMP METABOLIC PANEL Follow-up pending results of work-up 2. Diarrhea, unspecified type - ICD9: 787.91, ICD10: R19.7 As above - CONSULT TO GASTROENTEROLOGY - CBC + DIFF - COMP METABOLIC PANEL - TSH BLD - H PYLORI IGG AB 3. Gastroesophageal reflux disease without esophagitis - ICD9: 530.81, ICD10: K21.9 - Continue treatment with Zantac 150 mg QD - Plan as above - CONSULT TO GASTROENTEROLOGY - CBC + DIFF - COMP METABOLIC PANEL - H PYLORI IGG AB Prescription instructions reviewed with patient as applicable. Potential red flag symptoms discussed with the patient. Reviewed appropriate action plan to take if red flag symptoms occur. Patient agreeable to treatment plan. Marichuy Gonzalez APRN.CNP CNOV Observed: 08/17/2017 Status: COMPLETED Source: [place] 10:[address] [facility] REPOSITORY Office Visit (INTMWS) JOVITA FRANCES ([id number]) 1980 F Date Time Provider Department 08/17/17 10:40 AM MARICHUY GONZALEZ (JUDSON) INTMWS During your visit today, we recorded the following information about you: Pulse Respiration Blood pressure Weight 84/minute 12/minute 126/88 89.5 kg Marichuy Gonzalez APRN.CNP 08/17/2017 11:24 AM Signed CC: Patient presents with: GI Upset HPI Jovitatom Frances is a 36 year old female who presents today for change in bowel habits. Multiple soft stools daily and intermittent diarrhea since May. Does not feel like she empties her bowels completely. One episode of blood mixed in the stool in May. Cramping with diarrhea only. Excessive gas and bloating. Heartburn/reflux symptoms, treating with Zantac with relief. Patient reports prior to symptoms starting she had been taking a Aleve daily for shoulder issues. Was changed to Meloxicam by ortho due to GI issues without any improvement. Stopped the Meloxicam one week ago and symptoms have remained the same. Low carb diet, eats a lot of vegetables. No lactose in diet. Drinks a lot of water. In 2002 had intermittent constipation with diarrhea, found to be anemic. Colonoscopy and EGD were normal and immediately after that bowel issues resolved. History of GERD, takes Zantac as needed. Repeat EGD a couple years ago was normal. REVIEW OF SYSTEMS General: no fevers, no chills, no night sweats, no change in appetite, no change in energy and no significant changes in weight GI: Negative for nausea, vomiting Endocrine: no LE edema, no palpitations, no tremors, no weight gain, no weight loss, no hair loss, no dry skin, no cold intolerance, no heat intolerance, menstrual cycles being irregular, no trouble swallowing and no neck pain/pressure Psych: Admits to anxiety and excessive worry, worse at the end of the school year but since summer started she is feeling better. Denies depression. CP PHQ9 08/17/2017 Little interest or pleasure 1 - Several days Feeling down, depressed, hopeless 0 - Not at all Trouble falling or staying asleep, sleeping too much 0 - Not at all Feeling tired, having little energy 1 - Several days Poor appetite or overeating 0 - Not at all Feeling bad about yourself, failure or you have let yourself/family down 0 - Not at all Trouble concentrating on things 0 - Not at all Moving or speaking so slowly, or fidgety or restless 0 - Not at all Thoughts that you would be better off , or of hurting yourself in some way 0 - Not at all How difficult have these problems made things Somewhat difficult Interpretation of Total Score 1-4 Minimal depression DANY-7 ANXIETY SCALE 08/17/2017 FEELING NERVOUS,ANXIOUS,OR ON EDGE 2 Over half the days NOT BEING ABLE TO STOP OR CONTROL WORRYING 1 Several days WORRYING TOO MUCH ABOUT DIFFERENT THINGS 2 Over half the days TROUBLE RELAXING 0 Not at all sure BEING SO RESTLESS THAT IT'S HARD TO SIT STILL 0 Not at all sure BEING EASILY ANNOYED OR IRRITABLE 1 Several days FEELING AFRAID IF SOMETHING AWFUL MIGHT HAPPEN 1 Several days GAD7 SCORE 7 IF YOU CHECKED OFF ANY PROBLEMS Somewhat difficult PAST MEDICAL HISTORY Diagnosis Date - Herniation of left side of L4-L5 intervertebral disc 2014 broad based disc, L side Sciatica. - Iron deficiency anemia 2001 negative colonoscopy and EGD. - Narcolepsy - PCOS (polycystic ovarian syndrome) PAST SURGICAL HISTORY Procedure Laterality Date - BX OF BREAST; NEEDLE CORE 1999 right breast core biopsy - DISKECTOMY, LUMBAR, ADDTNL SP Bilateral 2014 Dr Landon Reyes, L4-L5, L5-S1 - DISKECTOMY, LUMBAR, SINGLE SP 2010 Dr Paul - EGD W/O OR W/BRUSH/WASH 05/16/15 EGD with mac - RIB RESECTION TOTAL 2004, 2006 1st rib resection for Thoracic Outlet - SALPINGECTOMY Bilateral 12/12/2016 laparoscopic-Dr. Sylvia Hernandez ALLERGIES Cephalexin; Penicillins; Ultram [Tramadol Hcl] MEDICATIONS fluticasone (FLONASE) 50 mcg/actuation nasal spray Use 2 Sprays in each nostril once daily. Rinse mouth after use. meloxicam (MOBIC) 15 mg tablet Take 1 tablet by mouth once daily. ranitidine (ZANTAC) 150 mg tablet Take 1 tablet by mouth once daily. #[id number] benzonatate (TESSALON PERLE) 100 mg capsule Take 2 capsules by mouth three times daily as needed. meloxicam (MOBIC) 15 mg tablet Take 1 tablet by mouth once daily. metroNIDAZOLE (FLAGYL) 500 mg tablet Take 1 tablet by mouth three times daily. albuterol HFA (PROAIR HFA) 90 mcg/actuation inhaler Inhale 2 Puffs as instructed every 4 hours as needed. codeine-guaiFENesin (ROBITUSSIN AC) 10-100 mg/5 mL syrup Take 5 mL by mouth four times daily as needed for Cough. May cause drowsiness. ETHINYL ESTRADIOL/DROSPIRENONE (OLAF, 28, ORAL) Take by mouth once daily. metFORMIN ER (GLUCOPHAGE XR) 500 mg 24 hr tablet Take 1,500 mg by mouth daily with breakfast. modafinil (PROVIGIL) 200 mg tablet Take 100 mg by mouth once daily. takes 100 mg daily and may take 100 mg more if needed esomeprazole (NEXIUM) 40 mg capsule Take 1 capsule by mouth daily before breakfast. 1/2 hr before meal. B Complex Vitamins (VITAMIN B COMPLEX) capsule Take 1 capsule by mouth once daily. FAMILY HISTORY Problem Relation Age of Onset - Breast Cancer Paternal Grandmother dx in late 30's bilateral procedures, mid 50's - Breast Cancer Other maternal great aunt - Breast Cancer Other 2 maternal cousins - Breast Cancer Other maternal great grandmother - Stroke Father at age 55 - Thyroid Mother hyperthryroid - Hypertension Mother - pvd [Other] [OTHER] Mother - Hypertension Brother - Lipids Brother - Prostate Cancer Maternal Grandfather - Lung Cancer [Other] [OTHER] Maternal Grandfather - Lung Cancer [Other] [OTHER] Paternal Grandmother - Other Cancers [Other] [OTHER] no known family hx of ovarian, uterine, brain, colon, pancreatic, thyroid, leukemia, melanoma, or sarcoma Social History Substance Use Topics - Smoking status: Never Smoker - Smokeless tobacco: Never Used - Alcohol use 1.5 oz/week 1 Cans of Beer (12oz) per week Comment: occasional PHYSICAL EXAM BP 126/88 (BP Site: Right Arm, BP Position: Sitting, BP Cuff Size: Regular Adult) Pulse 84 Resp 12 Wt 89.5 kg (197 lb 6.4 oz) BMI 33.88 kg/m? General Appearance: well appearing, in no acute distress, alert Pysch: affect is anxious Neck: Thyroid normal size and symmetric without palpable nodules, Neck supple, No adenopathy Lungs: Lungs clear to auscultation. No wheezing, rhonchi, rales Heart: RRR without murmur, gallop, or rubs. No ectopy Abdomen: Abdomen soft, non-distended. mild mid abdominal tenderness with palpation. No guarding or rebound tenderness. Negative Randall's sign. Bowel sounds normal and active. No masses, organomegaly. ASSESSMENT/PLAN: 1. Change in bowel habit - ICD9: 787.99, ICD10: R19.4 (primary diagnosis) Differential diagnoses includes IBS, GERD, H. pylori - CONSULT TO GASTROENTEROLOGY for further evaluation and recommendations Check: - CBC + DIFF - COMP METABOLIC PANEL Follow-up pending results of work-up 2. Diarrhea, unspecified type - ICD9: 787.91, ICD10: R19.7 As above - CONSULT TO GASTROENTEROLOGY - CBC + DIFF - COMP METABOLIC PANEL - TSH BLD - H PYLORI IGG AB 3. Gastroesophageal reflux disease without esophagitis - ICD9: 530.81, ICD10: K21.9 - Continue treatment with Zantac 150 mg QD - Plan as above - CONSULT TO GASTROENTEROLOGY - CBC + DIFF - COMP METABOLIC PANEL - H PYLORI IGG AB Prescription instructions reviewed with patient as applicable. Potential red flag symptoms discussed with the patient. Reviewed appropriate action plan to take if red flag symptoms occur. Patient agreeable to treatment plan. Marichuy Gonzalez APRN.[employer] Allergies As of Date: 08/17/2017 Noted Allergy Reaction CEPHALEXIN 03/13/2004 PENICILLINS 12/30/2003 ULTRAM (TRAMADOL HCL) 12/05/2011 4 - Hives Date Reviewed: 08/17/2017 Reviewed by: Jeannette Scott Ma - Fully Assessed Reason for Visit: GI Upset [1308] Primary Visit Diagnosis:Change in bowel habit [R19.4] Other Visit Diagnoses:Diarrhea, unspecified type [R19.7] Gastroesophageal reflux disease without esophagitis [K21.9] Order(s):CONSULT TO GASTROENTEROLOGY [9010] Order #: [id number]: 1 CBC + DIFF [SQCBCDIF] Order #: [id number] FUTURE COMP METABOLIC PANEL [SQCMP] Order #: [id number] FUTURE TSH BLD [SQTSH] Order #: [id number] FUTURE H PYLORI IGG AB [SQHPYLRI] Order #: [id number] FUTURE Prescriptions as of 08/17/2017 Sig: FLUTICASONE 50 MCG/ACTUATION * Use 2 Sprays in each nostril * MELOXICAM 15 MG TABLET Take 1 tablet by mouth once d* RANITIDINE 150 MG TABLET Take 1 tablet by mouth once d* Problem List As Of Date 08/17/2017 Noted Resolved GERD (Gastroesophageal Reflux Disease) [K21.9] INVALID FOR* Venous insufficiency [I87.2] INVALID FOR*05/07/2015 Dysphonia [R49.0] INVALID FOR*05/07/2015 PCOS (polycystic ovarian syndrome) [E28.2] INVALID FOR* Narcolepsy [G47.419] Low back pain [M54.5] INVALID FOR* Chronic GERD [K21.9] INVALID FOR*05/16/2015 Medications Discontinued During This Encounter benzonatate (TESSALON PERLE) 100 mg * 30 c* 0 04/28/2017 08/17/2017 Route: ORAL Sig: Take 2 capsules by mouth three times daily as needed. Patient not taking: Reported on 06/10/2017 Disc: Course of therapy completed meloxicam (MOBIC) 15 mg tablet 04/08/2017 08/17/2017 Class: Historical Med Route: ORAL Sig: Take 1 tablet by mouth once daily. Disc: Course of therapy completed metroNIDAZOLE (FLAGYL) 500 mg tablet 21 t* 0 11/24/2016 08/17/2017 Route: ORAL Sig: Take 1 tablet by mouth three times daily. Disc: Course of therapy completed albuterol HFA (PROAIR HFA) 90 mcg/ac* 1 In* 0 07/22/2016 08/17/2017 Route: INHALATION Sig: Inhale 2 Puffs as instructed every 4 hours as needed. Disc: Course of therapy completed codeine-guaiFENesin (ROBITUSSIN AC) * 120 * 0 05/09/2015 08/17/2017 Class: Print RX Route: ORAL Sig: Take 5 mL by mouth four times daily as needed for Cough. May cause drowsiness. Disc: Course of therapy completed metFORMIN ER (GLUCOPHAGE XR) 500 mg * 08/17/2017 Class: Historical Med Route: ORAL Sig: Take 1,500 mg by mouth daily with breakfast. Disc: Course of therapy completed ETHINYL ESTRADIOL/DROSPIRENONE (OLAF,* 08/17/2017 Class: Historical Med Route: ORAL Sig: Take by mouth once daily. Disc: Course of therapy completed modafinil (PROVIGIL) 200 mg tablet 08/17/2017 Class: Historical Med Route: ORAL Sig: Take 100 mg by mouth once daily. takes 100 mg daily and may take 100 mg more if needed Disc: Course of therapy completed B Complex Vitamins (VITAMIN B COMPLE* 08/17/2017 Class: Historical Med Route: ORAL Sig: Take 1 capsule by mouth once daily. Disc: Course of therapy completed esomeprazole (NEXIUM) 40 mg capsule 90 c* 0 02/05/2015 08/17/2017 Route: ORAL Sig: Take 1 capsule by mouth daily before breakfast. 1/2 hr before meal. Disc: Course of therapy completed Questionnaire: DANY-7 ANXIETY SCALE Feeling nervous, anxious, or on edge -> 2 Over half the days Not being able to stop or control worrying -> 1 Several days Worrying too much about different things -> 2 Over half the days Trouble relaxing -> 0 Not at all sure Being so restless that it's hard to sit still -> 0 Not at all sure Being easily annoyed or irritable -> 1 Several days Feeling afraid as if something awful might happen -> 1 Several days DANY-7 Anxiety Score -> 7 If you checked off any problems, how difficult have these problems made it for you to do your work, take care of things at home, or get along with other people? -> Somewhat difficult Encounter Status:Closed by MARICHUY GONZALEZ CNP on 08/17/17 KLEBER Observed: 08/04/2017 Status: COMPLETED Source: [place] 12:[address] [facility] REPOSITORY Patient Outreach (FAMPST) JOVITA FRANCES ([id number]) 1980 F Date Time Provider Department 08/04/17 [facility] During your visit today, we recorded the following information about you: Allergies As of Date: 08/04/2017 Noted Allergy Reaction CEPHALEXIN 03/13/2004 PENICILLINS 12/30/2003 ULTRAM (TRAMADOL HCL) 12/05/2011 4 - Hives Date Reviewed: 08/03/2017 Reviewed by: Dolly Estrada (Sonal) Jason - Fully Assessed Visit Diagnosis:Medication management [Z79.899] Order(s):BASIC METABOLIC PNL [SQBMP] Order #: [id number] FUTURE Prescriptions as of 08/04/2017 Sig: AZITHROMYCIN 250 MG TABLET Take 2 tablets by mouth once * FLUTICASONE 50 MCG/ACTUATION * Use 2 Sprays in each nostril * X MELOXICAM 15 MG TABLET Take 1 tablet by mouth once d* RANITIDINE 150 MG TABLET Take 1 tablet by mouth once d* X BENZONATATE 100 MG CAPSULE Take 2 capsules by mouth thre* Patient not taking: Reported on 06/10/2017 X MELOXICAM 15 MG TABLET Take 1 tablet by mouth once d* X METRONIDAZOLE 500 MG TABLET Take 1 tablet by mouth three * X ALBUTEROL SULFATE HFA 90 MCG/* Inhale 2 Puffs as instructed * X CODEINE 10 MG-GUAIFENESIN 100* Take 5 mL by mouth four times* X OLAF (28) ORAL Take by mouth once daily. X METFORMIN ER 500 MG TABLET,EX* Take 1,500 mg by mouth daily * X MODAFINIL 200 MG TABLET Take 100 mg by mouth once arminda* X ESOMEPRAZOLE MAGNESIUM 40 MG * Take 1 capsule by mouth daily* X VITAMIN B COMPLEX CAPSULE Take 1 capsule by mouth once * Problem List As Of Date 08/04/2017 Noted Resolved GERD (Gastroesophageal Reflux Disease) [K21.9] INVALID FOR* Venous insufficiency [I87.2] INVALID FOR*05/07/2015 Dysphonia [R49.0] INVALID FOR*05/07/2015 PCOS (polycystic ovarian syndrome) [E28.2] INVALID FOR* Narcolepsy [G47.419] Low back pain [M54.5] INVALID FOR* Chronic GERD [K21.9] INVALID FOR*05/16/2015 Encounter Status:Closed by EPIC, PRODUSER on 12/04/17 PROGRESS Observed: 08/03/2017 Status: COMPLETED Source: [place] 6:[address] [facility] REPOSITORY HNO ID: [id number] Author: Dolly Estrada (Sonal) aJson Service: (none) Author Type: Nurse Practitioner Type: Progress Notes Filed: 08/03/2017 6:38 AM Note Text: Subjective HPI Patient presents with: Sore Throat: x 2 days Cough: x 3 weeks cough Sinus Problem: x 3 weeks States possible exposure to strep. Mucinex Multi-symptom and Zyrtec otc with minimal relief. Review of Systems Constitutional: Positive for fever. Negative for chills and malaise/fatigue. HENT: Positive for congestion, sinus pain and sore throat. Negative for ear pain. Eyes: Negative for discharge and redness. Respiratory: Positive for cough (due to PND). Negative for hemoptysis, sputum production, shortness of breath and wheezing. Gastrointestinal: Negative for abdominal pain, diarrhea, nausea and vomiting. Skin: Negative for rash. Neurological: Negative for headaches. PAST MEDICAL HISTORY Diagnosis Date - Herniation of left side of L4-L5 intervertebral disc 2014 broad based disc, L side Sciatica. - Iron deficiency anemia 2001 negative colonoscopy and EGD. - Narcolepsy - PCOS (polycystic ovarian syndrome) PAST SURGICAL HISTORY Procedure Laterality Date - BX OF BREAST; NEEDLE CORE 1999 right breast core biopsy - DISKECTOMY, LUMBAR, ADDTNL SP Bilateral 2014 Dr Landon Reyes, L4-L5, L5-S1 - DISKECTOMY, LUMBAR, SINGLE SP 2010 Dr Paul - EGD W/O OR W/BRUSH/WASH 05/16/15 EGD with mac - RIB RESECTION TOTAL 2004, 2006 1st rib resection for Thoracic Outlet - SALPINGECTOMY Bilateral 12/12/2016 laparoscopic-Dr. Sylvia Hernandez ALLERGIES Cephalexin; Penicillins; Ultram [Tramadol Hcl] MEDICATIONS ranitidine (ZANTAC) 150 mg tablet Take 1 tablet by mouth once daily. #[id number] meloxicam (MOBIC) 15 mg tablet Take 1 tablet by mouth once daily. benzonatate (TESSALON PERLE) 100 mg capsule Take 2 capsules by mouth three times daily as needed. meloxicam (MOBIC) 15 mg tablet Take 1 tablet by mouth once daily. metroNIDAZOLE (FLAGYL) 500 mg tablet Take 1 tablet by mouth three times daily. albuterol HFA (PROAIR HFA) 90 mcg/actuation inhaler Inhale 2 Puffs as instructed every 4 hours as needed. codeine-guaiFENesin (ROBITUSSIN AC) 10-100 mg/5 mL syrup Take 5 mL by mouth four times daily as needed for Cough. May cause drowsiness. ETHINYL ESTRADIOL/DROSPIRENONE (OLAF, 28, ORAL) Take by mouth once daily. metFORMIN ER (GLUCOPHAGE XR) 500 mg 24 hr tablet Take 1,500 mg by mouth daily with breakfast. modafinil (PROVIGIL) 200 mg tablet Take 100 mg by mouth once daily. takes 100 mg daily and may take 100 mg more if needed esomeprazole (NEXIUM) 40 mg capsule Take 1 capsule by mouth daily before breakfast. 1/2 hr before meal. B Complex Vitamins (VITAMIN B COMPLEX) capsule Take 1 capsule by mouth once daily. FAMILY HISTORY Problem Relation Age of Onset - Breast Cancer Paternal Grandmother dx in late 30's bilateral procedures, mid 50's - Breast Cancer Other maternal great aunt - Breast Cancer Other 2 maternal cousins - Breast Cancer Other maternal great grandmother - Stroke Father at age 55 - Thyroid Mother hyperthryroid - Hypertension Mother - pvd [Other] [OTHER] Mother - Hypertension Brother - Lipids Brother - Prostate Cancer Maternal Grandfather - Lung Cancer [Other] [OTHER] Maternal Grandfather - Lung Cancer [Other] [OTHER] Paternal Grandmother - Other Cancers [Other] [OTHER] no known family hx of ovarian, uterine, brain, colon, pancreatic, thyroid, leukemia, melanoma, or sarcoma Social History Substance Use Topics - Smoking status: Never Smoker - Smokeless tobacco: Never Used - Alcohol use 1.5 oz/week 1 Cans of Beer (12oz) per week Comment: occasional Objective Physical Exam Constitutional: She is well-developed, well-nourished, and in no distress. HENT: Head: Normocephalic. Right Ear: Tympanic membrane, external ear and ear canal normal. Left Ear: Tympanic membrane, external ear and ear canal normal. Nose: Rhinorrhea present. Right sinus exhibits no maxillary sinus tenderness and no frontal sinus tenderness. Left sinus exhibits no maxillary sinus tenderness and no frontal sinus tenderness. Mouth/Throat: Posterior oropharyngeal erythema (PND) present. Eyes: Conjunctivae are normal. Neck: Normal range of motion. Neck supple. Cardiovascular: Normal rate, regular rhythm and normal heart sounds. Pulmonary/Chest: Effort normal and breath sounds normal. No respiratory distress. She has no wheezes. Abdominal: Soft. She exhibits no distension. There is no tenderness. Lymphadenopathy: She has cervical adenopathy. Skin: Skin is warm and dry. No rash noted. Nursing note and vitals reviewed. ASSESSMENT/PLAN: 1. Strep pharyngitis - ICD9: 034.0, ICD10: J02.0 (primary diagnosis) - suspect strep - Rapid Strep positive in the office today - Zithromax for PCN allergy. - Discussed supportive care treatment with fluids, rest and analgesia. - The patient may also use OTC decongestants prn, warm salt water gargles, throat lozenges and/or OTC throat spray as needed and nasal saline gtts and suction prn. - Contagious dz precautions discussed- including considered contagious until on antibiotics for 24 hours - The patient should follow up in 3-5 days if symptoms persist or worsen - Call back if drooling, increased temperature, symptoms of dehydration and/or still sick in one week - RAPID STREP TEST B/O 2. Seasonal allergic rhinitis, unspecified trigger - ICD9: 477.9, ICD10: J30.2 -Flonase -cont. Zyrtec otc -F/u with pcp in 3-5 days or sooner if symptoms are not improving or worsening Prescription instructions reviewed with patient as applicable. Patient advised if symptoms do not improve or if symptoms worsen sooner, to contact their primary care physician. Potential red flag symptoms discussed with the patient. Reviewed appropriate action plan to take if red flag symptoms occur. Patient agreeable to treatment plan. Dolly Hassan APRN.JUDSON CNOV Observed: 08/03/2017 Status: COMPLETED Source: [place] 6:[address] 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 Mucinex Multi-symptom and Zyrtec otc with minimal relief. Review of Systems Constitutional: Positive for fever. Negative for chills and malaise/fatigue. HENT: Positive for congestion, sinus pain and sore throat. Negative for ear pain. Eyes: Negative for discharge and redness. Respiratory: Positive for cough (due to PND). Negative for hemoptysis, sputum production, shortness of breath and wheezing. Gastrointestinal: Negative for abdominal pain, diarrhea, nausea and vomiting. Skin: Negative for rash. Neurological: Negative for headaches. PAST MEDICAL HISTORY Diagnosis Date - Herniation of left side of L4-L5 intervertebral disc 2014 broad based disc, L side Sciatica. - Iron deficiency anemia 2001 negative colonoscopy and EGD. - Narcolepsy - PCOS (polycystic ovarian syndrome) PAST SURGICAL HISTORY Procedure Laterality Date - BX OF BREAST; NEEDLE CORE 1999 right breast core biopsy - DISKECTOMY, LUMBAR, ADDTNL SP Bilateral 2014 Dr Landon Reyes, L4-L5, L5-S1 - DISKECTOMY, LUMBAR, SINGLE SP 2010 Dr Paul - EGD W/O OR W/BRUSH/WASH 05/16/15 EGD with mac - RIB RESECTION TOTAL 2004, 2006 1st rib resection for Thoracic Outlet - SALPINGECTOMY Bilateral 12/12/2016 laparoscopic-Dr. Sylvia Hernandez ALLERGIES Cephalexin; Penicillins; Ultram [Tramadol Hcl] MEDICATIONS ranitidine (ZANTAC) 150 mg tablet Take 1 tablet by mouth once daily. #[id number] meloxicam (MOBIC) 15 mg tablet Take 1 tablet by mouth once daily. benzonatate (TESSALON PERLE) 100 mg capsule Take 2 capsules by mouth three times daily as needed. meloxicam (MOBIC) 15 mg tablet Take 1 tablet by mouth once daily. metroNIDAZOLE (FLAGYL) 500 mg tablet Take 1 tablet by mouth three times daily. albuterol HFA (PROAIR HFA) 90 mcg/actuation inhaler Inhale 2 Puffs as instructed every 4 hours as needed. codeine-guaiFENesin (ROBITUSSIN AC) 10-100 mg/5 mL syrup Take 5 mL by mouth four times daily as needed for Cough. May cause drowsiness. ETHINYL ESTRADIOL/DROSPIRENONE (OLAF, 28, ORAL) Take by mouth once daily. metFORMIN ER (GLUCOPHAGE XR) 500 mg 24 hr tablet Take 1,500 mg by mouth daily with breakfast. modafinil (PROVIGIL) 200 mg tablet Take 100 mg by mouth once daily. takes 100 mg daily and may take 100 mg more if needed esomeprazole (NEXIUM) 40 mg capsule Take 1 capsule by mouth daily before breakfast. 1/2 hr before meal. B Complex Vitamins (VITAMIN B COMPLEX) capsule Take 1 capsule by mouth once daily. FAMILY HISTORY Problem Relation Age of Onset - Breast Cancer Paternal Grandmother dx in late 30's bilateral procedures, mid 50's - Breast Cancer Other maternal great aunt - Breast Cancer Other 2 maternal cousins - Breast Cancer Other maternal great grandmother - Stroke Father at age 55 - Thyroid Mother hyperthryroid - Hypertension Mother - pvd [Other] [OTHER] Mother - Hypertension Brother - Lipids Brother - Prostate Cancer Maternal Grandfather - Lung Cancer [Other] [OTHER] Maternal Grandfather - Lung Cancer [Other] [OTHER] Paternal Grandmother - Other Cancers [Other] [OTHER] no known family hx of ovarian, uterine, brain, colon, pancreatic, thyroid, leukemia, melanoma, or sarcoma Social History Substance Use Topics - Smoking status: Never Smoker - Smokeless tobacco: Never Used - Alcohol use 1.5 oz/week 1 Cans of Beer (12oz) per week Comment: occasional Objective Physical Exam Constitutional: She is well-developed, well-nourished, and in no distress. HENT: Head: Normocephalic. Right Ear: Tympanic membrane, external ear and ear canal normal. Left Ear: Tympanic membrane, external ear and ear canal normal. Nose: Rhinorrhea present. Right sinus exhibits no maxillary sinus tenderness and no frontal sinus tenderness. Left sinus exhibits no maxillary sinus tenderness and no frontal sinus tenderness. Mouth/Throat: Posterior oropharyngeal erythema (PND) present. Eyes: Conjunctivae are normal. Neck: Normal range of motion. Neck supple. Cardiovascular: Normal rate, regular rhythm and normal heart sounds. Pulmonary/Chest: Effort normal and breath sounds normal. No respiratory distress. She has no wheezes. Abdominal: Soft. She exhibits no distension. There is no tenderness. Lymphadenopathy: She has cervical adenopathy. Skin: Skin is warm and dry. No rash noted. Nursing note and vitals reviewed. ASSESSMENT/PLAN: 1. Strep pharyngitis - ICD9: 034.0, ICD10: J02.0 (primary diagnosis) - suspect strep - Rapid Strep positive in the office today - Zithromax for PCN allergy. - Discussed supportive care treatment with fluids, rest and analgesia. - The patient may also use OTC decongestants prn, warm salt water gargles, throat lozenges and/or OTC throat spray as needed and nasal saline gtts and suction prn. - Contagious dz precautions discussed- including considered contagious until on antibiotics for 24 hours - The patient should follow up in 3-5 days if symptoms persist or worsen - Call back if drooling, increased temperature, symptoms of dehydration and/or still sick in one week - RAPID STREP TEST B/O 2. Seasonal allergic rhinitis, unspecified trigger - ICD9: 477.9, ICD10: J30.2 -Flonase -cont. Zyrtec otc -F/u with pcp in 3-5 days or sooner if symptoms are not improving or worsening Prescription instructions reviewed with patient as applicable. Patient advised if symptoms do not improve or if symptoms worsen sooner, to contact their primary care physician. Potential red flag symptoms discussed with the patient. Reviewed appropriate action plan to take if red flag symptoms occur. Patient agreeable to treatment plan. JOSIAH Mckeon APRN.CNP 08/03/2017 6:33 AM Signed What is strep throat? Strep throat is an infection caused by a specific type of bacteria, Streptococcus. When your child has a strep throat, the tonsils are usually very inflamed, and the inflammation may affect the surrounding part of the throat as well. Symptoms Strep throat is caused by a bacterium called Streptococcus pyogenes. To some extent, the symptoms of strep throat depend on the child?s age. - Infants with strep infections may have only a low fever and a thickened or bloody nasal discharge. - Toddlers (ages one to three) also may have a thickened or bloody nasal discharge with a fever. Such children are usually quite cranky, have no appetite, and often have swollen glands in the neck. Sometimes toddlers will complain of tummy pain instead of a sore throat. - Children over three years of age with strep are often more ill; they may have an extremely painful throat, fever over 102 degrees Fahrenheit (38.9 degrees Celsius), swollen glands in the neck, and pus on the tonsils. It?s important to be able to distinguish a strep throat from a viral sore throat, because strep infections are treated with antibiotics. When to call the detention sergeant If your child has a sore throat that persists (not one that goes away after her first drink in the morning), whether or not it is accompanied by fever, headache, stomachache, or extreme fatigue, you should call your detention sergeant. That call should be made even more urgently if your child seems extremely ill, or if she has difficulty breathing or extreme trouble swallowing (causing her to drool). This may indicate a more serious infection. Treatment If the strep test shows that your child does have strep throat, your detention sergeant will prescribe an antibiotic to be taken by mouth or by injection. If your child is given the oral medication, it?s very important that she take it for the full course, as prescribed, even if the symptoms get better or go away. If a child?s strep throat is not treated with antibiotics, or if she doesn?t complete the treatment, the infection may worsen or spread to other parts of her body, leading to conditions such as abscesses of the tonsils or kidney problems. Untreated strep infections also can lead to rheumatic fever, a disease that affects the heart. However, rheumatic fever is rare in the [place] and in children under five years old. Prevention Most types of throat infections are contagious, being passed primarily through the air on droplets of moisture or on the hands of infected children or adults. For that reason, it makes sense to keep your child away from people who have symptoms of this condition. However, most people are contagious before their first symptoms appear, so often there?s really no practical way to prevent your child from eleonora the disease. In the past when a child had several sore throats, her tonsils might have been removed in an attempt to prevent further infections. But this operation, called a tonsillectomy, is recommended today only for the most severely affected children. Even in difficult cases, where there is repeated strep throat, antibiotic treatment is usually the best solution. Referring Provider: SELF [200] Allergies As of Date: 08/03/2017 Noted Allergy Reaction CEPHALEXIN 03/13/2004 PENICILLINS 12/30/2003 ULTRAM (TRAMADOL HCL) 12/05/2011 4 - Hives Date Reviewed: 08/03/2017 Reviewed by: Dolly Estrada (Cosmetic Sales) Jason - Fully Assessed Reason for Visit: Sore Throat [200] Cmt: x 2 days Cough [28] Cmt: x 3 weeks cough Sinus Problem [99] Cmt: x 3 weeks Primary Visit Diagnosis:Strep pharyngitis [J02.0] Other Visit Diagnosis:Seasonal allergic rhinitis, unspecified trigger [J30.2] Order(s):RAPID STREP TEST B/O [6248501] Order #: [id number] azithromycin (ZITHROMAX) 250 mg tabletTake 2 tablets by mouth once daily for 5 days. (Strep throat dosing.)Disp: 10 tabletRfl: 0 fluticasone (FLONASE) 50 mcg/actuation nasal sprayUse 2 Sprays in each nostril once daily. Rinse mouth after use.Disp: 1 BottleRfl: 0 Prescriptions as of 08/03/2017 Sig: RANITIDINE 150 MG TABLET Take 1 tablet by mouth once d* AZITHROMYCIN 250 MG TABLET Take 2 tablets by mouth once * FLUTICASONE 50 MCG/ACTUATION * Use 2 Sprays in each nostril * MELOXICAM 15 MG TABLET Take 1 tablet by mouth once d* BENZONATATE 100 MG CAPSULE Take 2 capsules by mouth thre* Patient not taking: Reported on 06/10/2017 MELOXICAM 15 MG TABLET Take 1 tablet by mouth once d* METRONIDAZOLE 500 MG TABLET Take 1 tablet by mouth three * ALBUTEROL SULFATE HFA 90 MCG/* Inhale 2 Puffs as instructed * CODEINE 10 MG-GUAIFENESIN 100* Take 5 mL by mouth four times* OLAF (28) ORAL Take by mouth once daily. METFORMIN ER 500 MG TABLET,EX* Take 1,500 mg by mouth daily * MODAFINIL 200 MG TABLET Take 100 mg by mouth once arminda* ESOMEPRAZOLE MAGNESIUM 40 MG * Take 1 capsule by mouth daily* VITAMIN B COMPLEX CAPSULE Take 1 capsule by mouth once * Problem List As Of Date 08/03/2017 Noted Resolved GERD (Gastroesophageal Reflux Disease) [K21.9] INVALID FOR* Venous insufficiency [I87.2] INVALID FOR*05/07/2015 Dysphonia [R49.0] INVALID FOR*05/07/2015 PCOS (polycystic ovarian syndrome) [E28.2] INVALID FOR* Narcolepsy [G47.419] Low back pain [M54.5] INVALID FOR* Chronic GERD [K21.9] INVALID FOR*05/16/2015 Other instructions from your clinician: What is strep throat? Strep throat is an infection caused by a specific type of bacteria, Streptococcus. When your child has a strep throat, the tonsils are usually very inflamed, and the inflammation may affect the surrounding part of the throat as well. Symptoms Strep throat is caused by a bacterium called Streptococcus pyogenes. To some extent, the symptoms of strep throat depend on the child?s age. - Infants with strep infections may have only a low fever and a thickened or bloody nasal discharge. - Toddlers (ages one to three) also may have a thickened or bloody nasal discharge with a fever. Such children are usually quite cranky, have no appetite, and often have swollen glands in the neck. Sometimes toddlers will complain of tummy pain instead of a sore throat. - Children over three years of age with strep are often more ill; they may have an extremely painful throat, fever over 102 degrees Fahrenheit (38.9 degrees Celsius), swollen glands in the neck, and pus on the tonsils. It?s important to be able to distinguish a strep throat from a viral sore throat, because strep infections are treated with antibiotics. When to call the detention sergeant If your child has a sore throat that persists (not one that goes away after her first drink in the morning), whether or not it is accompanied by fever, headache, stomachache, or extreme fatigue, you should call your detention sergeant. That call should be made even more urgently if your child seems extremely ill, or if she has difficulty breathing or extreme trouble swallowing (causing her to drool). This may indicate a more serious infection. Treatment If the strep test shows that your child does have strep throat, your detention sergeant will prescribe an antibiotic to be taken by mouth or by injection. If your child is given the oral medication, it?s very important that she take it for the full course, as prescribed, even if the symptoms get better or go away. If a child?s strep throat is not treated with antibiotics, or if she doesn?t complete the treatment, the infection may worsen or spread to other parts of her body, leading to conditions such as abscesses of the tonsils or kidney problems. Untreated strep infections also can lead to rheumatic fever, a disease that affects the heart. However, rheumatic fever is rare in the [place] and in children under five years old. Prevention Most types of throat infections are contagious, being passed primarily through the air on droplets of moisture or on the hands of infected children or adults. For that reason, it makes sense to keep your child away from people who have symptoms of this condition. However, most people are contagious before their first symptoms appear, so often there?s really no practical way to prevent your child from eleonora the disease. In the past when a child had several sore throats, her tonsils might have been removed in an attempt to prevent further infections. But this operation, called a tonsillectomy, is recommended today only for the most severely affected children. Even in difficult cases, where there is repeated strep throat, antibiotic treatment is usually the best solution. Prescriptions ordered this encounter Disp Refills Start End AZITHROMYCIN 250 MG TABLET 10 t* 0 08/03/2017 08/08/2017 Route: ORAL Sig: Take 2 tablets by mouth once daily for 5 days. (Strep throat dosing.) FLUTICASONE 50 MCG/ACTUATION NASAL S* 1 Shaji* 0 08/03/2017 Route: EACH NOSTRIL Sig: Use 2 Sprays in each nostril once daily. Rinse mouth after use. Disposition: Return if symptoms worsen or fail to improve. Follow-up and Disposition History Recorded Letter Text Dolly Hassan APRN.CNP Urgent Care [address] [facility] [address] Dept: [phone] 08/03/2017 Jovita Frances [address] [facility] [address] To Whom it May Concern: This is to certify that Jovita Frances was seen at our office for medical care. Jovita may return to work on 08/04/2017. If you have any questions please feel free to call. Sincerely: Dolly Hassan APRN.JUDSON Encounter Status:Closed by DOLLY HASSAN on 08/03/17 PROGRESS Observed: 06/10/2017 Status: COMPLETED Source: [place] 4:16 PM [facility] [place] REPOSITORY HNO ID: [id number] Author: Darren Ivory V Service: (none) Author Type: Physician Type: Progress Notes Filed: 06/10/2017 4:20 PM Note Text: SELF Ms. Frances presents today for follow-up of right anterior shoulder pain. She was seen 2 months ago and received a cortisone injection to the acromioclavicular joint at that time. He states that the injection helped for about a month to 6 weeks and the pain began to gradually creep back activity. She has been doing CrossFit workouts, on a modified basis, avoiding overhead lifting. Denies that neck motion reproduces the pain Denies pain below the elbow Denies numbness or tingling in the arm ALLERGIES: Cephalexin; Penicillins; Ultram [Tramadol Hcl] Examination: Right shoulder tender to palpation over the front of the acromioclavicular joint. His crepitus with palpation during range of motion of the shoulder, primarily adduction. ROTATOR CUFF STRENGTH: Normal IMPINGEMENT SIGN: Positive Ellis test. Positive empty can sign MRI of right shoulder: Shows degenerative changes of the before meals joint with some marrow edema and mild tendinosis of the supraspinatus with no obvious tear ASSESSMENT: Acromioclavicular joint degenerative arthritis Supraspinatus tendinosis PLAN: Discussed activity modification, avoid heavy lifting or overhead lifting until improvement is noted with conservative treatment. The risk, benefits and alternatives of injection and no injection therapy were discussed. Personnel were discussed and the patient consented for an injection. The patient has been identified by name and birthdate. The injection site was identified, marked and prepped with a alcohol swab. Time out completed. The right acromioclavicular joint was injected with a 25 gauge needle with 1cc Celestone (3 mg), 2cc xylocaine plain 1%. The injection site was then dressed with a bandaid. The patient tolerated the injection well. The patient was instructed to call the office if any adverse local effects occurred or any if any questions or concerns arise. Darren Ivory DO PROGRESS Observed: 06/10/2017 Status: COMPLETED Source: [place] 3:[address] [facility] REPOSITORY HNO ID: [id number] Author: Vaishnavi Ly Ma Service: (none) Author Type: (none) Type: Progress Notes Filed: 06/10/2017 4:20 PM Note Text: Patient presents with: Established Patient: 9 weeks post visit arthrits AC joint with injection given AMB ROOMING INTAKE FLOWSHEET DATA Risk Screening Do you have concerns about personal safety or safety in the home?: No Pain Pain Score: 3/10 Pain Location: Shoulder-Right Description: Aching Duration Amount of Time: (Ongoing) Frequency: Continuous Intervention: Medication Patient states injection helped for a month. A week ago Thursday on 06/02/17 she started having some GI upset with bleeding and stopped taking Aleve. Patient was on Mobic prior taking the Aleve when her Rx was done. CNOV Observed: 06/10/2017 Status: COMPLETED Source: [place] 3:[address] [facility] REPOSITORY Office Visit () JOVITA FRANCES ([id number]) 1980 F Date Time Provider Department 06/10/17 3:40 PM DARREN IVORY During your visit today, we recorded the following information about you: Vaishnavi Ly Kin 06/10/2017 4:20 PM Signed Patient presents with: Established Patient: 9 weeks post visit arthrits AC joint with injection given AMB ROOMING INTAKE FLOWSHEET DATA Risk Screening Do you have concerns about personal safety or safety in the home?: No Pain Pain Score: 3/10 Pain Location: Shoulder-Right Description: Aching Duration Amount of Time: (Ongoing) Frequency: Continuous Intervention: Medication Patient states injection helped for a month. A week ago Thursday on 06/02/17 she started having some GI upset with bleeding and stopped taking Aleve. Patient was on Mobic prior taking the Aleve when her Rx was done. Darren Ivory DO 06/10/2017 4:20 PM Signed SELF Ms. Frances presents today for follow-up of right anterior shoulder pain. She was seen 2 months ago and received a cortisone injection to the acromioclavicular joint at that time. He states that the injection helped for about a month to 6 weeks and the pain began to gradually creep back activity. She has been doing CrossFit workouts, on a modified basis, avoiding overhead lifting. Denies that neck motion reproduces the pain Denies pain below the elbow Denies numbness or tingling in the arm ALLERGIES: Cephalexin; Penicillins; Ultram [Tramadol Hcl] Examination: Right shoulder tender to palpation over the front of the acromioclavicular joint. His crepitus with palpation during range of motion of the shoulder, primarily adduction. ROTATOR CUFF STRENGTH: Normal IMPINGEMENT SIGN: Positive Ellis test. Positive empty can sign MRI of right shoulder: Shows degenerative changes of the before meals joint with some marrow edema and mild tendinosis of the supraspinatus with no obvious tear ASSESSMENT: Acromioclavicular joint degenerative arthritis Supraspinatus tendinosis PLAN: Discussed activity modification, avoid heavy lifting or overhead lifting until improvement is noted with conservative treatment. The risk, benefits and alternatives of injection and no injection therapy were discussed. Personnel were discussed and the patient consented for an injection. The patient has been identified by name and birthdate. The injection site was identified, marked and prepped with a alcohol swab. Time out completed. The right acromioclavicular joint was injected with a 25 gauge needle with 1cc Celestone (3 mg), 2cc xylocaine plain 1%. The injection site was then dressed with a bandaid. The patient tolerated the injection well. The patient was instructed to call the office if any adverse local effects occurred or any if any questions or concerns arise. Darren Ivory DO Referring Provider: SELF [200] Allergies As of Date: 06/10/2017 Noted Allergy Reaction CEPHALEXIN 03/13/2004 PENICILLINS 12/30/2003 ULTRAM (TRAMADOL HCL) 12/05/2011 4 - Hives Date Reviewed: 06/10/2017 Reviewed by: Vaishnavi Ly Ma - Fully Assessed Reason for Visit: Established Patient [175] Cmt: 9 weeks post visit arthrits AC joint with injection given Primary Visit Diagnosis:Arthritis of right acromioclavicular joint [M19.011] Order(s):meloxicam (MOBIC) 15 mg tabletTake 1 tablet by mouth once daily.Disp: 30 tabletRfl: 3 Prescriptions as of 06/10/2017 Sig: RANITIDINE 150 MG TABLET Take 1 tablet by mouth once d* MELOXICAM 15 MG TABLET Take 1 tablet by mouth once d* BENZONATATE 100 MG CAPSULE Take 2 capsules by mouth thre* Patient not taking: Reported on 06/10/2017 MELOXICAM 15 MG TABLET Take 1 tablet by mouth once d* METRONIDAZOLE 500 MG TABLET Take 1 tablet by mouth three * ALBUTEROL SULFATE HFA 90 MCG/* Inhale 2 Puffs as instructed * CODEINE 10 MG-GUAIFENESIN 100* Take 5 mL by mouth four times* OLAF (28) ORAL Take by mouth once daily. METFORMIN ER 500 MG TABLET,EX* Take 1,500 mg by mouth daily * MODAFINIL 200 MG TABLET Take 100 mg by mouth once arminda* ESOMEPRAZOLE MAGNESIUM 40 MG * Take 1 capsule by mouth daily* VITAMIN B COMPLEX CAPSULE Take 1 capsule by mouth once * Medication notes this encounter MELOXICAM 15 MG TABLET >> Vaishnavi Ly Ma 06/10/2017 3:47 PM >> VAISHNAVI LY MA ThuJun 10, 2017 3:47 PM Patient not taking MODAFINIL 200 MG TABLET >> Vaishnavi Ly Ma 06/10/2017 3:48 PM >> PRABHU SINGHVAISHNAVI Wed Jun 10, 2017 3:48 PM Patient not taking Problem List As Of Date 06/10/2017 Noted Resolved GERD (Gastroesophageal Reflux Disease) [K21.9] INVALID FOR* Venous insufficiency [I87.2] INVALID FOR*05/07/2015 Dysphonia [R49.0] INVALID FOR*05/07/2015 PCOS (polycystic ovarian syndrome) [E28.2] INVALID FOR* Narcolepsy [G47.419] Low back pain [M54.5] INVALID FOR* Chronic GERD [K21.9] INVALID FOR*05/16/2015 Prescriptions ordered this encounter Disp Refills Start End MELOXICAM 15 MG TABLET 30 t* 3 06/10/2017 Route: ORAL Sig: Take 1 tablet by mouth once daily. Encounter Status:Closed by DARREN IVORY DO, V on 06/10/17 CNOV Observed: 04/28/2017 Status: COMPLETED Source: [place] 7:[address] [facility] REPOSITORY Office Visit ([facility]) JOVITA FRANCES ([id number]) 1980 F Date Time Provider Department 04/28/17 7:00 PM CHARO SEVILLA) WSTR During your visit today, we recorded the following information about you: Temperature Pulse Respiration Blood pressure 98.2 degrees 78/minute 16/minute 126/80 Weight 90.3 kg Charo Sevilla CNP 04/28/2017 7:13 PM Signed Subjective HPI HPI Jovita Frances is a 36 year old female who presents today for CC of cough, sinus pressure, fever. This started 2 weeks ago. Has tried tylenol. Symptoms are worsened by nothing. 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 Review of Systems Constitutional: Positive for fever. Negative for chills and weight loss. HENT: Positive for congestion. Negative for ear pain, nosebleeds and sore throat. Respiratory: Positive for cough. Negative for shortness of breath and wheezing. Musculoskeletal: Negative for neck pain. Skin: Negative for itching and rash. PAST MEDICAL HISTORY Diagnosis Date - Herniation of left side of L4-L5 intervertebral disc 2014 broad based disc, L side Sciatica. - Iron deficiency anemia 2001 negative colonoscopy and EGD. - Narcolepsy - PCOS (polycystic ovarian syndrome) PAST SURGICAL HISTORY Procedure Laterality Date - BX OF BREAST; NEEDLE CORE 1999 right breast core biopsy - DISKECTOMY, LUMBAR, ADDTNL SP Bilateral 2014 Dr Landon Reyes, L4-L5, L5-S1 - DISKECTOMY, LUMBAR, SINGLE SP 2010 Dr Paul - EGD W/O OR W/BRUSH/WASH 05/16/15 EGD with mac - RIB RESECTION TOTAL 2004, 2006 1st rib resection for Thoracic Outlet - SALPINGECTOMY Bilateral 12/12/2016 laparoscopic-Dr. Sylvia Hernandez ALLERGIES Cephalexin; Penicillins; Ultram [Tramadol Hcl] MEDICATIONS meloxicam (MOBIC) 15 mg tablet Take 1 tablet by mouth once daily. ranitidine (ZANTAC) 150 mg tablet Take 1 tablet by mouth once daily. #[id number] modafinil (PROVIGIL) 200 mg tablet Take 100 mg by mouth once daily. takes 100 mg daily and may take 100 mg more if needed metroNIDAZOLE (FLAGYL) 500 mg tablet Take 1 tablet by mouth three times daily. albuterol HFA (PROAIR HFA) 90 mcg/actuation inhaler Inhale 2 Puffs as instructed every 4 hours as needed. codeine-guaiFENesin (ROBITUSSIN AC) 10-100 mg/5 mL syrup Take 5 mL by mouth four times daily as needed for Cough. May cause drowsiness. ETHINYL ESTRADIOL/DROSPIRENONE (OLAF, 28, ORAL) Take by mouth once daily. metFORMIN ER (GLUCOPHAGE XR) 500 mg 24 hr tablet Take 1,500 mg by mouth daily with breakfast. esomeprazole (NEXIUM) 40 mg capsule Take 1 capsule by mouth daily before breakfast. 1/2 hr before meal. B Complex Vitamins (VITAMIN B COMPLEX) capsule Take 1 capsule by mouth once daily. FAMILY HISTORY Problem Relation Age of Onset - Breast Cancer Paternal Grandmother dx in late 30's bilateral procedures, mid 50's - Breast Cancer Other maternal great aunt - Breast Cancer Other 2 maternal cousins - Breast Cancer Other maternal great grandmother - Stroke Father at age 55 - Thyroid Mother hyperthryroid - Hypertension Mother - pvd [Other] [OTHER] Mother - Hypertension Brother - Lipids Brother - Prostate Cancer Maternal Grandfather - Lung Cancer [Other] [OTHER] Maternal Grandfather - Lung Cancer [Other] [OTHER] Paternal Grandmother - Other Cancers [Other] [OTHER] no known family hx of ovarian, uterine, brain, colon, pancreatic, thyroid, leukemia, melanoma, or sarcoma Social History Substance Use Topics - Smoking status: Never Smoker - Smokeless tobacco: Never Used - Alcohol use 1.5 oz/week 1 Cans of Beer (12oz) per week Comment: occasional Blood pressure 126/80, pulse 78, temperature 36.8 ?C (98.2 ?F), temperature source Tympanic, resp. rate 16, weight 90.3 kg (199 lb). Objective Physical Exam Constitutional: She is oriented to person, place, and time and well-developed, well-nourished, and in no distress. Non-toxic appearance. She does not have a sickly appearance. No distress. HENT: Head: Normocephalic and atraumatic. Right Ear: Hearing, tympanic membrane, external ear and ear canal normal. Left Ear: Hearing, tympanic membrane, external ear and ear canal normal. Nose: Right sinus exhibits maxillary sinus tenderness. Left sinus exhibits maxillary sinus tenderness. Mouth/Throat: Uvula is midline, oropharynx is clear and moist and mucous membranes are normal. Eyes: Conjunctivae and lids are normal. Pupils are equal, round, and reactive to light. Right eye exhibits no discharge. Left eye exhibits no discharge. No scleral icterus. Neck: Trachea normal and normal range of motion. Neck supple. Cardiovascular: Normal rate, regular rhythm and normal heart sounds. Pulmonary/Chest: Effort normal and breath sounds normal. Lymphadenopathy: She has no cervical adenopathy. Neurological: She is alert and oriented to person, place, and time. Skin: No rash noted. She is not diaphoretic. ASSESSMENT/PLAN: 1. Bacterial sinusitis - ICD9: 473.9, 041.9, ICD10: J32.9, B96.89 (primary diagnosis) - Will begin treatment with Doxycline - Supportive care with plenty of fluids, rest, and analgesia prn. - Follow up in 3-5 days if symptoms persist or worsen. - DOXYCYCLINE MONOHYDRATE 100 MG TABLET 2. URI, acute - ICD9: 465.9, ICD10: J06.9 -new onset symptoms past few days - Discussed viral etiology and rationale for treatment. - Symptomatic treatment with prn analgesia - Supportive care with fluids and rest - Follow up in 3-5 days if symptoms persist or sooner if worsening of symptoms - BENZONATATE 100 MG CAPSULE Prescription instructions reviewed with patient as applicable. Patient advised if symptoms do not improve or if symptoms worsen sooner, to contact the office for further evaluation by their primary care physician. Potential red flag symptoms discussed with the patient. Reviewed appropriate action plan to take if red flag symptoms occur. Patient agreeable to treatment plan. JUDSON Vu CNP 04/28/2017 7:09 PM Signed RESPIRATORY INFECTION GENERAL INFORMATION: An upper respiratory tract infection, or cold, is a viral infection of the airway passages. It can be caused by any one of almost 200 different viruses. Common symptoms include a runny or stuffy nose, sneezing, watery eyes, sore throat, cough, and slight fever. Colds are contagious, especially during the first 3 or 4 days and cannot be cured by antibiotics. They are spread by coughs, sneezes, and direct contact, especially [id number]. A respiratory tract infection usually clears up in a few days, but some people may be sick for a week or two. INSTRUCTIONS: 1. Be careful not to blow your nose too hard because this may cause a nosebleed. 2. Use a cool-mist humidifier (vaporizer) to increase air moisture. This will make it easier for you to breathe. Do not use hot steam. 3. Rest as much as possible and get plenty of sleep. 4. Wash your hands often, especially after you blow your nose. Cover your mouth and nose with a tissue when you sneeze or cough. 5. Drink plenty of clear fluids (8 glasses a day) such as water, fruit juice, tea, clear soups, and carbonated beverages. CONTACT YOUR DOCTOR IF : 1. Your fever lasts more than 3 days. 2. You have a sore throat that gets worse or you see white or yellow spots in your throat. 3. Your cough gets worse or lasts more than 10 days. 4. You develop a rash anywhere on your skin. 5. You have an earache or a headache. 6. You have thick greenish or yellowish discharge from your nose. RETURN IMMEDIATELY IF: 1. You cough up thick yellow, green, howell, or bloody sputum. 2. You have difficulty breathing, pain in your chest, or your skin or nails look howell or blue. 3. You have shaking chills or a temperature over 102 F (39 C). SINUSITIS: You have sinusitis, an infection of the sinus cavities around the nose. This infection usually follows a respiratory illness; it can also be related to allergies, changes in atmospheric pressure (flying, diving), or anything that blocks nasal drainage. Symptoms include: headache, facial pain, a thick nasal discharge, congestion, and cough. The treatment includes antibiotic therapy, increasing oral fluids, and pain medication if needed. Nose spray decongestants (Afrin, Jarrod- Synephrine) and oral decongestants may be needed to reduce congestion and drainage. Rarely the sinus must be irrigated to remove the infected material. Sinusitis can lead to serious complications by spreading to other areas such as the eye or brain. Please call your doctor or return here right away if you have any of the following more serious symptoms: - Unusual swelling around the eye or trouble seeing. - Increasing pain, severe headache, or toothache. - Nausea, vomiting, or unusual drowsiness. Referring Provider: SELF [200] Allergies As of Date: 04/28/2017 Noted Allergy Reaction CEPHALEXIN 03/13/2004 PENICILLINS 12/30/2003 ULTRAM (TRAMADOL HCL) 12/05/2011 4 - Hives Date Reviewed: 04/28/2017 Reviewed by: Charo ([facility]) - Fully Assessed Reason for Visit: Sinus Problem [99] Cmt: sinus pressure, drainage, chest congestion, cough and headache x 3 days Primary Visit Diagnosis:Bacterial sinusitis [J32.9, B96.89] Other Visit Diagnosis:URI, acute [J06.9] Order(s):doxycycline monohydrate 100 mg tabletTake 1 tablet by mouth twice daily for 10 days.Disp: 20 tabletRfl: 0 benzonatate (TESSALON PERLE) 100 mg capsuleTake 2 capsules by mouth three times daily as needed.Disp: 30 capsuleRfl: 0 Prescriptions as of 04/28/2017 Sig: MELOXICAM 15 MG TABLET Take 1 tablet by mouth once d* RANITIDINE 150 MG TABLET Take 1 tablet by mouth once d* MODAFINIL 200 MG TABLET Take 100 mg by mouth once arminda* DOXYCYCLINE MONOHYDRATE 100 M* Take 1 tablet by mouth twice * BENZONATATE 100 MG CAPSULE Take 2 capsules by mouth thre* METRONIDAZOLE 500 MG TABLET Take 1 tablet by mouth three * ALBUTEROL SULFATE HFA 90 MCG/* Inhale 2 Puffs as instructed * CODEINE 10 MG-GUAIFENESIN 100* Take 5 mL by mouth four times* OLAF (28) ORAL Take by mouth once daily. METFORMIN ER 500 MG TABLET,EX* Take 1,500 mg by mouth daily * ESOMEPRAZOLE MAGNESIUM 40 MG * Take 1 capsule by mouth daily* VITAMIN B COMPLEX CAPSULE Take 1 capsule by mouth once * Medication notes this encounter OLAF (28) ORAL >> Allen Chapman Ma 04/28/2017 6:51 PM >> ALLEN CHAPMAN MA Apr 28, 2017 6:51 PM done METFORMIN ER 500 MG TABLET,EXTENDED RELEASE 24 HR >> lAlen Chapman Ma 04/28/2017 6:51 PM >> ALLEN CHAPMAN MA Apr 28, 2017 6:51 PM done Problem List As Of Date 04/28/2017 Noted Resolved GERD (Gastroesophageal Reflux Disease) [K21.9] INVALID FOR* Venous insufficiency [I87.2] INVALID FOR*05/07/2015 Dysphonia [R49.0] INVALID FOR*05/07/2015 PCOS (polycystic ovarian syndrome) [E28.2] INVALID FOR* Narcolepsy [G47.419] Low back pain [M54.5] INVALID FOR* Chronic GERD [K21.9] INVALID FOR*05/16/2015 Other instructions from your clinician: RESPIRATORY INFECTION GENERAL INFORMATION: An upper respiratory tract infection, or cold, is a viral infection of the airway passages. It can be caused by any one of almost 200 different viruses. Common symptoms include a runny or stuffy nose, sneezing, watery eyes, sore throat, cough, and slight fever. Colds are contagious, especially during the first 3 or 4 days and cannot be cured by antibiotics. They are spread by coughs, sneezes, and direct contact, especially [id number]. A respiratory tract infection usually clears up in a few days, but some people may be sick for a week or two. INSTRUCTIONS: 1. Be careful not to blow your nose too hard because this may cause a nosebleed. 2. Use a cool-mist humidifier (vaporizer) to increase air moisture. This will make it easier for you to breathe. Do not use hot steam. 3. Rest as much as possible and get plenty of sleep. 4. Wash your hands often, especially after you blow your nose. Cover your mouth and nose with a tissue when you sneeze or cough. 5. Drink plenty of clear fluids (8 glasses a day) such as water, fruit juice, tea, clear soups, and carbonated beverages. CONTACT YOUR DOCTOR IF : 1. Your fever lasts more than 3 days. 2. You have a sore throat that gets worse or you see white or yellow spots in your throat. 3. Your cough gets worse or lasts more than 10 days. 4. You develop a rash anywhere on your skin. 5. You have an earache or a headache. 6. You have thick greenish or yellowish discharge from your nose. RETURN IMMEDIATELY IF: 1. You cough up thick yellow, green, howell, or bloody sputum. 2. You have difficulty breathing, pain in your chest, or your skin or nails look howell or blue. 3. You have shaking chills or a temperature over 102 F (39 C). SINUSITIS: You have sinusitis, an infection of the sinus cavities around the nose. This infection usually follows a respiratory illness; it can also be related to allergies, changes in atmospheric pressure (flying, diving), or anything that blocks nasal drainage. Symptoms include: headache, facial pain, a thick nasal discharge, congestion, and cough. The treatment includes antibiotic therapy, increasing oral fluids, and pain medication if needed. Nose spray decongestants (Afrin, Jarrod-Synephrine) and oral decongestants may be needed to reduce congestion and drainage. Rarely the sinus must be irrigated to remove the infected material. Sinusitis can lead to serious complications by spreading to other areas such as the eye or brain. Please call your doctor or return here right away if you have any of the following more serious symptoms: - Unusual swelling around the eye or trouble seeing. - Increasing pain, severe headache, or toothache. - Nausea, vomiting, or unusual drowsiness. Prescriptions ordered this encounter Disp Refills Start End DOXYCYCLINE MONOHYDRATE 100 MG TABLET 20 t* 0 04/28/2017 05/08/2017 Route: ORAL Sig: Take 1 tablet by mouth twice daily for 10 days. BENZONATATE 100 MG CAPSULE 30 c* 0 04/28/2017 Route: ORAL Sig: Take 2 capsules by mouth three times daily as needed. Encounter Status:Closed by CHARO SEVILLA CNP on 04/28/17 PROGRESS Observed: 04/28/2017 Status: COMPLETED Source: [place] 6:57 PM [facility] [place] REPOSITORY HNO ID: [id number] Author: Charo (Judson) Service: (none) Author Type: Nurse Practitioner Type: Progress Notes Filed: 04/28/2017 7:13 PM Note Text: Subjective HPI HPI Jovita Frances is a 36 year old female who presents today for CC of cough, sinus pressure, fever. This started 2 weeks ago. Has tried tylenol. Symptoms are worsened by nothing. 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 Review of Systems Constitutional: Positive for fever. Negative for chills and weight loss. HENT: Positive for congestion. Negative for ear pain, nosebleeds and sore throat. Respiratory: Positive for cough. Negative for shortness of breath and wheezing. Musculoskeletal: Negative for neck pain. Skin: Negative for itching and rash. PAST MEDICAL HISTORY Diagnosis Date - Herniation of left side of L4-L5 intervertebral disc 2014 broad based disc, L side Sciatica. - Iron deficiency anemia 2001 negative colonoscopy and EGD. - Narcolepsy - PCOS (polycystic ovarian syndrome) PAST SURGICAL HISTORY Procedure Laterality Date - BX OF BREAST; NEEDLE CORE 1999 right breast core biopsy - DISKECTOMY, LUMBAR, ADDTNL SP Bilateral 2014 Dr Landon Reyes, L4-L5, L5-S1 - DISKECTOMY, LUMBAR, SINGLE SP 2010 Dr Paul - EGD W/O OR W/BRUSH/WASH 05/16/15 EGD with mac - RIB RESECTION TOTAL 2004, 2006 1st rib resection for Thoracic Outlet - SALPINGECTOMY Bilateral 12/12/2016 laparoscopic-Dr. Sylvia Hernandez ALLERGIES Cephalexin; Penicillins; Ultram [Tramadol Hcl] MEDICATIONS meloxicam (MOBIC) 15 mg tablet Take 1 tablet by mouth once daily. ranitidine (ZANTAC) 150 mg tablet Take 1 tablet by mouth once daily. #[id number] modafinil (PROVIGIL) 200 mg tablet Take 100 mg by mouth once daily. takes 100 mg daily and may take 100 mg more if needed metroNIDAZOLE (FLAGYL) 500 mg tablet Take 1 tablet by mouth three times daily. albuterol HFA (PROAIR HFA) 90 mcg/actuation inhaler Inhale 2 Puffs as instructed every 4 hours as needed. codeine-guaiFENesin (ROBITUSSIN AC) 10-100 mg/5 mL syrup Take 5 mL by mouth four times daily as needed for Cough. May cause drowsiness. ETHINYL ESTRADIOL/DROSPIRENONE (OLAF, 28, ORAL) Take by mouth once daily. metFORMIN ER (GLUCOPHAGE XR) 500 mg 24 hr tablet Take 1,500 mg by mouth daily with breakfast. esomeprazole (NEXIUM) 40 mg capsule Take 1 capsule by mouth daily before breakfast. 1/2 hr before meal. B Complex Vitamins (VITAMIN B COMPLEX) capsule Take 1 capsule by mouth once daily. FAMILY HISTORY Problem Relation Age of Onset - Breast Cancer Paternal Grandmother dx in late 30's bilateral procedures, mid 50's - Breast Cancer Other maternal great aunt - Breast Cancer Other 2 maternal cousins - Breast Cancer Other maternal great grandmother - Stroke Father at age 55 - Thyroid Mother hyperthryroid - Hypertension Mother - pvd [Other] [OTHER] Mother - Hypertension Brother - Lipids Brother - Prostate Cancer Maternal Grandfather - Lung Cancer [Other] [OTHER] Maternal Grandfather - Lung Cancer [Other] [OTHER] Paternal Grandmother - Other Cancers [Other] [OTHER] no known family hx of ovarian, uterine, brain, colon, pancreatic, thyroid, leukemia, melanoma, or sarcoma Social History Substance Use Topics - Smoking status: Never Smoker - Smokeless tobacco: Never Used - Alcohol use 1.5 oz/week 1 Cans of Beer (12oz) per week Comment: occasional Blood pressure 126/80, pulse 78, temperature 36.8 ?C (98.2 ?F), temperature source Tympanic, resp. rate 16, weight 90.3 kg (199 lb). Objective Physical Exam Constitutional: She is oriented to person, place, and time and well-developed, well-nourished, and in no distress. Non-toxic appearance. She does not have a sickly appearance. No distress. HENT: Head: Normocephalic and atraumatic. Right Ear: Hearing, tympanic membrane, external ear and ear canal normal. Left Ear: Hearing, tympanic membrane, external ear and ear canal normal. Nose: Right sinus exhibits maxillary sinus tenderness. Left sinus exhibits maxillary sinus tenderness. Mouth/Throat: Uvula is midline, oropharynx is clear and moist and mucous membranes are normal. Eyes: Conjunctivae and lids are normal. Pupils are equal, round, and reactive to light. Right eye exhibits no discharge. Left eye exhibits no discharge. No scleral icterus. Neck: Trachea normal and normal range of motion. Neck supple. Cardiovascular: Normal rate, regular rhythm and normal heart sounds. Pulmonary/Chest: Effort normal and breath sounds normal. Lymphadenopathy: She has no cervical adenopathy. Neurological: She is alert and oriented to person, place, and time. Skin: No rash noted. She is not diaphoretic. ASSESSMENT/PLAN: 1. Bacterial sinusitis - ICD9: 473.9, 041.9, ICD10: J32.9, B96.89 (primary diagnosis) - Will begin treatment with Doxycline - Supportive care with plenty of fluids, rest, and analgesia prn. - Follow up in 3-5 days if symptoms persist or worsen. - DOXYCYCLINE MONOHYDRATE 100 MG TABLET 2. URI, acute - ICD9: 465.9, ICD10: J06.9 -new onset symptoms past few days - Discussed viral etiology and rationale for treatment. - Symptomatic treatment with prn analgesia - Supportive care with fluids and rest - Follow up in 3-5 days if symptoms persist or sooner if worsening of symptoms - BENZONATATE 100 MG CAPSULE Prescription instructions reviewed with patient as applicable. Patient advised if symptoms do not improve or if symptoms worsen sooner, to contact the office for further evaluation by their primary care physician. Potential red flag symptoms discussed with the patient. Reviewed appropriate action plan to take if red flag symptoms occur. Patient agreeable to treatment plan. Charo Sevilla CNP PROGRESS Observed: 04/08/2017 Status: COMPLETED Source: [place] 4:30 PM [facility] [place] REPOSITORY HNO ID: [id number] Author: Darren Ivory V Service: (none) Author Type: Physician Type: Progress Notes Filed: 04/08/2017 4:36 PM Note Text: SELF Ms. Frances is a 36 year old female that presents today complaining of shoulder problems on the right side for the last 4 months. She claims that there was no specific mechanism of injury to cause her pain, however she does do cross fit and pain started after CrossFit workouts. The pain is described as present daily located in the top of the front and side of shoulder. Patient states that her pain level is a number 3 on a scale of 1-10 Denies that neck motion reproduces the pain Denies pain below the elbow Denies numbness or tingling in the arm Patient has no difficulty with combing hair, puttings arms behind their back, lifting items and reports pain but no loss of motion. This is an existing problem for this patient and has been evaluated by Dr. Stevens from [facility]. She is taking meloxicam with some overall relief, and has had an MRI of the shoulder. ALLERGIES: Cephalexin; Penicillins; Ultram [Tramadol Hcl] MEDICATIONS: Current Outpatient Prescriptions: meloxicam (MOBIC) 15 mg tablet Take 1 tablet by mouth once daily. modafinil (PROVIGIL) 200 mg tablet Take 100 mg by mouth once daily. takes 100 mg daily and may take 100 mg more if needed metroNIDAZOLE (FLAGYL) 500 mg tablet Take 1 tablet by mouth three times daily. albuterol HFA (PROAIR HFA) 90 mcg/actuation inhaler Inhale 2 Puffs as instructed every 4 hours as needed. ranitidine (ZANTAC) 150 mg tablet Take 1 tablet by mouth once daily. #[id number] codeine-guaiFENesin (ROBITUSSIN AC) 10-100 mg/5 mL syrup Take 5 mL by mouth four times daily as needed for Cough. May cause drowsiness. ETHINYL ESTRADIOL/DROSPIRENONE (OLAF, 28, ORAL) Take by mouth once daily. metFORMIN ER (GLUCOPHAGE XR) 500 mg 24 hr tablet Take 1,500 mg by mouth daily with breakfast. esomeprazole (NEXIUM) 40 mg capsule Take 1 capsule by mouth daily before breakfast. 1/2 hr before meal. B Complex Vitamins (VITAMIN B COMPLEX) capsule Take 1 capsule by mouth once daily. No current facility-administered medications for this visit. MEDICAL HISTORY: PAST MEDICAL HISTORY Diagnosis Date - Herniation of left side of L4-L5 intervertebral disc 2014 broad based disc, L side Sciatica. - Iron deficiency anemia 2001 negative colonoscopy and EGD. - Narcolepsy - PCOS (polycystic ovarian syndrome) SURGICAL HISTORY: PAST SURGICAL HISTORY Procedure Laterality Date - BX OF BREAST; NEEDLE CORE 1999 right breast core biopsy - DISKECTOMY, LUMBAR, ADDTNL SP Bilateral 2014 Dr Landon Reyes, L4-L5, L5-S1 - DISKECTOMY, LUMBAR, SINGLE SP 2010 Dr Paul - EGD W/O OR W/BRUSH/WASH 05/16/15 EGD with mac - RIB RESECTION TOTAL 2004, 2006 1st rib resection for Thoracic Outlet - SALPINGECTOMY Bilateral 12/12/2016 laparoscopic-Dr. Sylvia Hernandez FAMILY HISTORY: FAMILY HISTORY Problem Relation Age of Onset - Breast Cancer Paternal Grandmother dx in late 30's bilateral procedures, mid 50's - Breast Cancer Other maternal great aunt - Breast Cancer Other 2 maternal cousins - Breast Cancer Other maternal great grandmother - Stroke Father at age 55 - Thyroid Mother hyperthryroid - Hypertension Mother - pvd [Other] [OTHER] Mother - Hypertension Brother - Lipids Brother - Prostate Cancer Maternal Grandfather - Lung Cancer [Other] [OTHER] Maternal Grandfather - Lung Cancer [Other] [OTHER] Paternal Grandmother - Other Cancers [Other] [OTHER] no known family hx of ovarian, uterine, brain, colon, pancreatic, thyroid, leukemia, melanoma, or sarcoma SOCIAL HISTORY: Social History Marital status: Spouse name: Years of education: Number of children: 2 Social History Main Topics Smoking status: Never Smoker Smokeless status: Never Used Alcohol use: Yes 1.5 oz/week 1 Cans of Beer (12oz) per week Comment: occasional Drug use: No PHYSICAL ASSESSMENT: ATROPHY: No PAIN TO PALPATION: Yes, over the before meals joint, and lateral shoulder ACTIVE ROM: Elevation: 170? Internal Rotation: 70? External Rotation: 60? ROTATOR CUFF STRENGTH: Normal IMPINGEMENT SIGN: Positive Ellis test. Positive empty can sign MRI of right shoulder: Shows degenerative changes of the before meals joint with some marrow edema and mild tendinosis of the supraspinatus with no obvious tear ASSESSMENT: Acromioclavicular joint degenerative arthritis Supraspinatus tendinosis PLAN: Discussed activity modification, avoid heavy lifting or overhead lifting until improvement is noted with conservative treatment. The risk, benefits and alternatives of injection and no injection therapy were discussed. Personnel were discussed and the patient consented for an injection. The patient has been identified by name and birthdate. The injection site was identified, marked and prepped with a alcohol swab. Time out completed. The right acromioclavicular joint was injected with a 30 gauge needle with 1/2cc Celestone (3 mg), 2cc xylocaine plain 1% and 2cc marcaine plain 0.5%. The injection site was then dressed with a bandaid. The patient tolerated the injection well. The patient was instructed to call the office if any adverse local effects occurred or any if any questions or concerns arise. Darren Ivory DO PROGRESS Observed: 04/08/2017 Status: COMPLETED Source: [place] 3:[address] [facility] REPOSITORY HNO ID: [id number] Author: Shayla Ramírez Ma Service: (none) Author Type: (none) Type: Progress Notes Filed: 04/08/2017 4:36 PM Note Text: AMB ROOMING INTAKE FLOWSHEET DATA Risk Screening Do you have concerns about personal safety or safety in the home?: No Pain Pain Score: 3/10 Pain Location: Shoulder-Right Description: Aching Duration Amount of Time: 4 Duration Units: Months Frequency: Continuous Intervention: Medication Patient here today for evaluation of right shoulder pain x 4 months. Was seen last week by Dr. Stevens, but didn't feel comfortable with his course of treatment. Patient had MRI on 03/20/2017. Is taking meloxicam. Does crossfit, but has backed off since shoulder pain started. MR-SHOULDER RIGHT Observed: 03/20/2017 Status: F Source: [place] SHOULDER IMPORT 12:[address] [facility] REPOSITORY Images were obtained outside of [employer] [id number] MR-SHOULDER - OVERREAD Observed: 03/20/2017 Status: F Source: [place] 12:[address] [facility] REPOSITORY * * *Final Report* * * DATE OF EXAM: Mar 20 2017 12:00AM OUT 0001 - MR OUTSIDE CD DICOM IMPORT -NBNR / PROCEDURE REASON: * * * * Physician Interpretation * * * * EXAMINATION: OUTSIDE IMAGE INTERPRETATION Indication for the Request / Reason for Overread: Previous report is inadequate. Specific Issue(s) Discussed: unable to read Images Reviewed: MRI of the right shoulder of the ([facility] performed on 03/20/2017 12:00 AM . Image Quality: [id number] Overread Date: 04/13/2017 7:40 AM Comparison: X-ray chest 07/22/2016 RESULT: HISTORY: Shoulder pain TECHNIQUE: Routine non-contrast MRI of the shoulder COMPARISON: None RESULT: Tendons: * Rotator cuff: The tendons of the rotator cuff are intact. Mild STIR hyperintensity of the insertion of the infraspinatus tendon. * Biceps tendon: The long head biceps tendon is intact and appropriately located. Muscle: Muscle bulk and signal intensity are within normal limits. Labrum: The glenoid labrum appears to be intact. Bones and Marrow: No evidence of fracture. Bone marrow edema is present within the distal clavicle and acromion in the region of the acromioclavicular joint. Cartilage: Glenohumeral cartilage is within normal limits. Synovium/Capsule: Within normal limits. Acromioclavicular Joint: Mild degenerative change with narrowing of the joint.. Other: Mild subacromial/subdeltoid bursal thickening with minimal fluid IMPRESSION: DEGENERATIVE CHANGES OF THE ACROMIOCLAVICULAR JOINT WITH MARROW EDEMA IN THE UPPER PORTION OF THE DEGREE OF DEGENERATIVE CHANGES. SYNOVIAL THICKENING THE SUBACROMIAL/SUBDELTOID BURSA. MILD INFRASPINATUS TENDINOSIS. Year. Catastrophe Claims Supervisor: SARI Transcribe Date/Time: Apr 13 2017 7:40A Dictated by : RAMESH WEINBERG MD This examination was interpreted and the report reviewed and electronically signed by: FLORENCIA CAMARENA MD on Apr 13 2017 1:28PM EST [id number] ALLERGIES ALLERGIES DATE TYPE / NAME / CODE REACTION SEVERITY SOURCE CODE 03/25/2016 Drug tramadol Hives Unknown [facility] All[facility]/41 HCl/[id number](RX Community [id number]([facility]) Repository 03/25/2016 Drug cephalexin Hives Unknown [place] [facility]/41 monohydrate/F0000 [facility] [id number][facility] 03/25/2016 Drug Penicillins/F0010 Anaphylaxis Unknown [place] Allergy/41 81074(RXNORM) Community [id number]([facility]) Repository 12/05/2011 DRUG TRAMADOL HCL HIVES [facility]/[address] [place] [address] [id number](SN Repository OMED CT) 03/13/2004 DRUG CEPHALEXIN [address] [id number](SN Repository OMED CT) 12/30/2003 Drug PENICILLINS [facility] Class/[address] [facility] [address](SNOM Repository ED CT) ENCOUNTERS ENCOUNTERS ADMIT/DISCHARGE ACCOUNT ADMITTING ENCOUNTER LOCATION SOURCE NUMBER CLASS 02/08/2018 [id number] [facility] ing:MTLAB Repository 11/10/2017 [id number] [facility] ing:MTLAB Repository 09/16/2017/09/17/19 [id number] Ambulatory [address] [place] Repository 09/16/2017/09/18/19 [id number] Ambulatory [address] Repository 08/17/2017/08/18/19 [id number] Ambulatory [address] [place] Repository 08/17/2017/08/19/19 [id number] Ambulatory [address] [place] Repository 08/03/2017/08/05/19 [id number] Ambulatory [address] [place] Repository 06/10/2017/06/12/19 [id number] Ambulatory [address] [place] Repository 04/28/2017/04/30/19 [id number] Ambulatory [address] [place] Repository 04/08/2017/04/14/19 [id number] Ambulatory [address] [place] Repository PAYERS PAYERS ENCOUNTER GUARANTOR PAYER SUBSCRIBER SOURCE 02/08/2018 JOVITA [id number] Insurance:MEDICAL STEINERDOB: [facility] [id number] Number: Repository [id number]: [phone] [id number] [phone] () Date:[id number] [id number]: 02/08/2018 Secondary NOT GIVENUNK [place] Insurance:SELF PAY [facility] Number: Effective Repository Date:2018-02-08 11/10/2017 Jovita Cameron Primary Jovita [id number] Insurance:MEDICAL SteinerDOB: [facility] [id number] [place], [place] Number: Repository [id number]: [phone] [id number] [phone] () Date:[id number] [address]QZ: 11/10/2017 Secondary NOT GIVENUNK [place] Insurance:SELF PAY [facility] Number: Effective Repository Date:2017-11-10
== END ==
PROVIDERS: Family Provider Family Medicine; PCP Family Medicine; Referring Provider Internal Medicine Rheumatology; Visit Provider Internal Medicine Rheumatology
DX: L40.59 Other psoriatic arthropathy (principal); Z79.899 Other long term (current) drug therapy; L40.8 Other psoriasis; M25.511 Pain in right shoulder; M51.37 Other intervertebral disc degeneration, lumbosacral region; M21.40 Flat foot [pes planus] (acquired), unspecified foot; K21.9 Gastro-esophageal reflux disease without esophagitis; E28.2 Polycystic ovarian syndrome; G47.419 Narcolepsy without cataplexy
CPT/HCPCS: 36415; 80053; 85025

== ENCOUNTER → 2018-04-14 17:26 | Outpatient (CLI) | payer OTHER, SELFPAY ==
[2017-01-12 10:55] VITALS: BMI 32.1
[2018-04-14 18:09] LABS: Absolute Lymphocyte Count 1.96 X10^3/ul (0.83-4.51); Absolute Neutrophil Count 2.8 X10^3/uL (2.0-7.7); Basophil# 0.03 X10^3/uL; Basophil% 0.6 % (0-1); Eosinophil# 0.06 X10^3/uL; Eosinophils% 1.1 % (0-5); Hematocrit 42.5 % (37-47); Hemoglobin 14.3 g/dl (12.0-15.0); Lymphocyte # 1.96 X10^3/ul (4.0); Lymphocyte % 36.4 % (19-41); Mean Corp Hgb Conc 33.6 g/gl (32-36); Mean Corpuscular Volume 92.2 fL (81-99); Mean Platelet Vol. 9.4 fl (6.2-12.0); Monocyte# 0.57 X10^3/uL; Monocyte% 10.6 % (0-10); Neutrophil # 2.76 X10^3/uL (2.7-7.7); Neutrophil % 51.1 % (47-70); POSITIVE COUNT NO; POSITIVE DIFFERENTIAL NO; POSITIVE MORPHOLOGY NO; Platelet Count 308 K/mm3 (150-450); RBC Distribution Width CV 13.5 % (11.6-14.6); RBC Distribution Width SD 44.3 fl (35.1-43.9); Red Blood Count 4.61 M/mm3 (4.2-5.4); White Blood Count 5.4 K/mm3 (4.4-11.0)
[2018-04-14 18:12] LABS: AST(SGOT) 18 U/L (15-37); Alanine Aminotransfer ALT/SGPT 25 U/L (13-56); Albumin, Serum 3.6 g/dL (3.2-5.0); Alkaline Phosphatase 106 U/L (45-117); Anion Gap 8 (5-15); BUN 12 mg/dL (7-18); BUN/Creat Ratio 14.9 RATIO (10-20); Calcium,Total 8.8 mg/dL (8.5-10.1); Chloride 107 mmol/L (98-107); Creatinine, Serum 0.81 mg/dL (0.55-1.02); EST Glomerular Filtration Rate 84 mL/min (>60); Est Glom Filt Rate - Afr Amer 101 mL/min (>60); Globulin 3.7 g/dL (2.2-4.2); Glucose 122 mg/dL (74-106); Potassium 3.8 mmol/L (3.5-5.1); Protein, Total 7.3 g/dL (6.4-8.2); Sodium Level 141 mmol/L (136-145)
== END ==
PROVIDERS: Family Provider Family Medicine; PCP Family Medicine; Referring Provider Internal Medicine Rheumatology; Visit Provider Internal Medicine Rheumatology
DX: L40.59 Other psoriatic arthropathy (principal); Z79.899 Other long term (current) drug therapy; L40.8 Other psoriasis; M25.511 Pain in right shoulder; M51.37 Other intervertebral disc degeneration, lumbosacral region; M21.40 Flat foot [pes planus] (acquired), unspecified foot; K21.9 Gastro-esophageal reflux disease without esophagitis; E28.2 Polycystic ovarian syndrome; G47.419 Narcolepsy without cataplexy
CPT/HCPCS: 36415; 80053; 85025

== ENCOUNTER → 2018-07-23 | Outpatient (CLI) | payer OTHER, SELFPAY ==
[2018-07-23 10:22] LABS: Absolute Lymphocyte Count 1.64 X10^3/ul (0.83-4.51); Absolute Neutrophil Count 3.8 X10^3/uL (2.0-7.7); Basophil# 0.03 X10^3/uL; Basophil% 0.5 % (0-1); Eosinophil# 0.07 X10^3/uL; Eosinophils% 1.1 % (0-5); Hematocrit 43.4 % (37-47); Hemoglobin 14.3 g/dl (12.0-15.0); Lymphocyte # 1.64 X10^3/ul (4.0); Lymphocyte % 25.3 % (19-41); Mean Corp Hgb Conc 32.9 g/gl (32-36); Mean Corpuscular Hgb 30.5 pg (27.0-32.0); Mean Corpuscular Volume 92.5 fL (81-99); Mean Platelet Vol. 9.6 fl (6.2-12.0); Monocyte# 0.95 X10^3/uL; Monocyte% 14.7 % (0-10); Neutrophil # 3.78 X10^3/uL (2.7-7.7); Neutrophil % 58.2 % (47-70); Platelet Count 342 K/mm3 (150-450); RBC Distribution Width CV 13.4 % (11.6-14.6); RBC Distribution Width SD 44.1 fl (35.1-43.9); Red Blood Count 4.69 M/mm3 (4.2-5.4); White Blood Count 6.5 K/mm3 (4.4-11.0)
[2018-07-23 10:24] LABS: POSITIVE COUNT NO; POSITIVE DIFFERENTIAL NO; POSITIVE MORPHOLOGY NO
[2018-07-23 10:43] LABS: ALB/GLOB Ratio 0.9 RATIO (0.9-2.4); AST(SGOT) 11 U/L (15-37); Alanine Aminotransfer ALT/SGPT 25 U/L (13-56); Albumin, Serum 3.5 g/dL (3.2-5.0); Alkaline Phosphatase 105 U/L (45-117); Anion Gap 7 (5-15); BUN 13 mg/dL (7-18); BUN/Creat Ratio 15.1 RATIO (10-20); Calcium,Total 9.7 mg/dL (8.5-10.1); Chloride 105 mmol/L (98-107); Creatinine, Serum 0.86 mg/dL (0.55-1.02); EST Glomerular Filtration Rate 78 mL/min (>60); Est Glom Filt Rate - Afr Amer 94 mL/min (>60); Globulin 3.7 g/dL (2.2-4.2); Glucose 89 mg/dL (74-106); Potassium 4.2 mmol/L (3.5-5.1); Protein, Total 7.2 g/dL (6.4-8.2); Sodium Level 140 mmol/L (136-145)
== END | disposition home or self-care (01) ==
LOC: MTLAB 08:15
PROVIDERS: Family Provider Family Medicine; PCP Family Medicine; Referring Provider Internal Medicine Rheumatology; Visit Provider Internal Medicine Rheumatology
DX: L40.59 Other psoriatic arthropathy (principal); Z79.899 Other long term (current) drug therapy; L40.8 Other psoriasis; M51.37 Other intervertebral disc degeneration, lumbosacral region; M21.40 Flat foot [pes planus] (acquired), unspecified foot; K21.9 Gastro-esophageal reflux disease without esophagitis; E28.2 Polycystic ovarian syndrome; G47.419 Narcolepsy without cataplexy
CPT/HCPCS: 36415; 80053; 85025

== ENCOUNTER → 2018-07-27 | Outpatient (CLI) | payer OTHER, SELFPAY ==
[2017-01-12 10:55] VITALS: BMI 32.1
--- NOTE | 2018-07-27 11:51 | RAD_ITS ---
HISTORY: psoriatic arthropathy EXAMINATION/TECHNIQUE: XR Chest 2 Views: PA and lateral. COMPARISON: 11/10/17 CXR FINDINGS: LINES/DEVICES: None. LUNGS: No consolidation, edema or effusion. No pneumothorax. MEDIASTINUM AND CARDIOVASCULAR STRUCTURES: Cardiac silhouette not enlarged. Central airways and mediastinal contour are unremarkable. BONES AND SOFT TISSUES: Unremarkable. RAD/Chest PA and Lateral IMPRESSION: No radiographic evidence of acute cardiopulmonary disease. at 0132 Reported and signed by: Kody Pang MD Electronically Signed: Kody Pang, at 1:31 EDT Tel , Service support ,
[2018-07-30 03:06] LABS: QNTFERON TB Mitogen Value > 10.00 IU/mL (.); QNTFERON TB Nil Value 0.02 IU/mL (.); QNTFERON TB1+ Ag Value 0.02 IU/mL (.); QNTFERON TB2+ Ag Value 0.02 IU/mL (.)
[2018-07-30 12:13] LABS: QNTIFERON TB Positive Criteria Negative (Negative)
== END | disposition home or self-care (01) ==
LOC: MTLAB 11:48
PROVIDERS: Family Provider Family Medicine; PCP Family Medicine; Referring Provider Internal Medicine Rheumatology; Visit Provider Internal Medicine Rheumatology
DX: L40.59 Other psoriatic arthropathy (principal); Z79.899 Other long term (current) drug therapy; L40.8 Other psoriasis; M51.37 Other intervertebral disc degeneration, lumbosacral region; M21.40 Flat foot [pes planus] (acquired), unspecified foot; K21.9 Gastro-esophageal reflux disease without esophagitis; E28.2 Polycystic ovarian syndrome; G47.419 Narcolepsy without cataplexy
CPT/HCPCS: 36415; 71046; 86480

== ENCOUNTER → 2018-09-27 | Outpatient (CLI) | payer OTHER, SELFPAY ==
[2018-09-27 17:53] LABS: Absolute Lymphocyte Count 1.41 X10^3/uL (0.83-4.51); Absolute Neutrophil Count 3.3 X10^3/uL (2.0-7.7); Basophil# 0.05 X10^3/uL; Basophil% 0.9 % (0-1); Eosinophil# 0.08 X10^3/uL; Eosinophils% 1.4 % (0-5); Hematocrit 39.3 % (37-47); Hemoglobin 13.3 g/dL (12.0-15.0); Lymphocyte # 1.41 X10^3/ul (4.0); Lymphocyte % 25.5 % (19-41); Mean Corp Hgb Conc 33.8 g/dL (32-36); Mean Corpuscular Hgb 32.3 pg (27.0-32.0); Mean Corpuscular Volume 95.4 fL (81-99); Mean Platelet Vol. 9.4 fl (6.2-12.0); Monocyte# 0.65 X10^3/uL; Monocyte% 11.7 % (0-10); NRBC Flagged by Analyzer 0 % (0-5); Neutrophil # 3.34 X10^3/uL (2.7-7.7); Neutrophil % 60.3 % (47-70); Platelet Count 364 K/mm3 (150-450); RBC Distribution Width SD 45.3 fl (35.1-43.9); Red Blood Count 4.12 M/mm3 (4.2-5.4); White Blood Count 5.5 K/mm3 (4.4-11.0)
[2018-09-27 17:59] LABS: AST(SGOT) 16 U/L (15-37); Alanine Aminotransfer ALT/SGPT 28 U/L (13-56); Albumin, Serum 3.5 g/dL (3.2-5.0); Alkaline Phosphatase 99 U/L (45-117); Anion Gap 7 (5-15); BUN 10 mg/dL (7-18); BUN/Creat Ratio 11.5 RATIO (10-20); Calcium,Total 9.1 mg/dL (8.5-10.1); Chloride 109 mmol/L (98-107); Creatinine, Serum 0.87 mg/dL (0.55-1.02); EST Glomerular Filtration Rate 77 mL/min (>60); Est Glom Filt Rate - Afr Amer 93 mL/min (>60); Globulin 3.4 g/dL (2.2-4.2); Glucose 89 mg/dL (74-106); Potassium 4.1 mmol/L (3.5-5.1); Protein, Total 6.9 g/dL (6.4-8.2); Sodium Level 142 mmol/L (136-145)
== END | disposition home or self-care (01) ==
LOC: MTLAB 15:53
PROVIDERS: Family Provider Family Medicine; PCP Family Medicine; Referring Provider Internal Medicine Rheumatology; Visit Provider Internal Medicine Rheumatology
DX: L40.59 Other psoriatic arthropathy (principal); Z79.899 Other long term (current) drug therapy; L40.8 Other psoriasis; M51.37 Other intervertebral disc degeneration, lumbosacral region; M21.40 Flat foot [pes planus] (acquired), unspecified foot; K21.9 Gastro-esophageal reflux disease without esophagitis; E28.2 Polycystic ovarian syndrome; G47.419 Narcolepsy without cataplexy
CPT/HCPCS: 36415; 80053; 85025

== ENCOUNTER → 2018-12-17 16:40 | Outpatient (CLI) | payer OTHER, SELFPAY ==
[2017-01-12 10:55] VITALS: BMI 32.1
[2018-12-17 17:38] LABS: Absolute Lymphocyte Count 2.27 X10^3/uL (0.83-4.51); Absolute Neutrophil Count 2.8 X10^3/uL (2.0-7.7); Basophil# 0.05 X10^3/uL; Basophil% 0.8 % (0-1); Eosinophil# 0.07 X10^3/uL; Eosinophils% 1.2 % (0-5); Hematocrit 40.1 % (37-47); Hemoglobin 13.5 g/dL (12.0-15.0); Lymphocyte # 2.27 X10^3/ul (4.0); Lymphocyte % 37.5 % (19-41); Mean Corp Hgb Conc 33.7 g/dL (32-36); Mean Corpuscular Hgb 32.5 pg (27.0-32.0); Mean Corpuscular Volume 96.6 fL (81-99); Mean Platelet Vol. 9.2 fl (6.2-12.0); Monocyte# 0.82 X10^3/uL; Monocyte% 13.5 % (0-10); NRBC Flagged by Analyzer 0 % (0-5); Neutrophil # 2.84 X10^3/uL (2.7-7.7); Neutrophil % 46.8 % (47-70); Platelet Count 360 K/mm3 (150-450); RBC Distribution Width CV 12.4 % (11.6-14.6); RBC Distribution Width SD 43.1 fl (35.1-43.9); Red Blood Count 4.15 M/mm3 (4.2-5.4); White Blood Count 6.1 K/mm3 (4.4-11.0)
[2018-12-17 17:56] LABS: ALB/GLOB Ratio 1.1 RATIO (0.9-2.4); AST(SGOT) 14 U/L (15-37); Alanine Aminotransfer ALT/SGPT 25 U/L (13-56); Albumin, Serum 3.6 g/dL (3.2-5.0); Alkaline Phosphatase 90 U/L (45-117); Anion Gap 5 (5-15); BUN 15 mg/dL (7-18); BUN/Creat Ratio 12.9 RATIO (10-20); Calcium,Total 8.6 mg/dL (8.5-10.1); Chloride 109 mmol/L (98-107); Creatinine, Serum 1.16 mg/dL (0.55-1.02); EST Glomerular Filtration Rate 55 mL/min (>60); Est Glom Filt Rate - Afr Amer 67 mL/min (>60); Globulin 3.4 g/dL (2.2-4.2); Glucose 101 mg/dL (74-106); Sodium Level 140 mmol/L (136-145)
== END ==
PROVIDERS: Family Provider Family Medicine; PCP Family Medicine; Referring Provider Internal Medicine Rheumatology; Visit Provider Internal Medicine Rheumatology
DX: L40.59 Other psoriatic arthropathy (principal); Z79.899 Other long term (current) drug therapy; L40.8 Other psoriasis; M51.37 Other intervertebral disc degeneration, lumbosacral region; M21.40 Flat foot [pes planus] (acquired), unspecified foot; K21.9 Gastro-esophageal reflux disease without esophagitis; E28.2 Polycystic ovarian syndrome; G47.419 Narcolepsy without cataplexy
CPT/HCPCS: 36415; 80053; 85025

== ENCOUNTER → 2018-12-30 18:03 | Outpatient (CLI) | payer OTHER, SELFPAY ==
[2017-01-12 10:55] VITALS: BMI 32.1
[2019-01-04 16:07] LABS: Age Gdln ACOG Testing 30-65 (.)
[2019-01-05 11:36] LABS: HPV APTIMA, High Risk Negative (Negative)
[2019-01-05 11:39] LABS: HPV Reflexed? YES, CHARGE PATIENT
== END ==
PROVIDERS: Family Provider Family Medicine; PCP Family Medicine; Referring Provider Obstetrics & Gynecology; Visit Provider Obstetrics & Gynecology
DX: Z12.4 Encounter for screening for malignant neoplasm of cervix (principal)
CPT/HCPCS: 87624; 88175; G0145

== ENCOUNTER → 2019-01-05 16:22 | Outpatient (CLI) | payer OTHER, SELFPAY ==
[2017-01-12 10:55] VITALS: BMI 32.1
--- NOTE | 2019-01-05 16:24 | BI_ITS ---
MAMMOGRAPHY - BILATERAL SCREENING REASON FOR EXAM: Female, 38 years old. Routine annual screening examination. PERTINENT HISTORY: Grandmother with breast cancer. TECHNIQUE: Digital bilateral breast zoe (3D mammographic acquisition) in the CC and MLO projections. 2-D mediolateral oblique (MLO) and craniocaudad (CC) views of both breasts were obtained. CAD: Full Field Digital Mammography with Computer Added Detection was performed. COMPARISON: Comparison is made with prior examination dated February 01, 2016. FINDINGS: Breast Composition: The breasts are almost entirely fatty. There are no dominant masses or suspicious calcifications. No other significant abnormalities are identified. There has been no significant change since the prior study. BI/SCREEN MAMM (CAD) W/ZOE BILAT IMPRESSION: Stable bilateral screening mammogram. Yearly follow-up mammogram recommended. (A) ASSESSMENT CATEGORY: BIRADS Category 1: Negative. A letter regarding these results will be sent to the patient by the facility within 30 days. Approximately 10% of breast cancers are not detected by mammography. A normal mammogram should not delay biopsy of a clinically suspicious abnormality. [id number] Electronically Signed: Tone Mendieta, at 9:31 EST , Service support ,
== END ==
PROVIDERS: Family Provider Family Medicine; PCP Family Medicine; Referring Provider Obstetrics & Gynecology; Visit Provider Obstetrics & Gynecology
DX: Z12.31 Encounter for screening mammogram for malignant neoplasm of breast (principal)
CPT/HCPCS: 77063; 77067

== ENCOUNTER → 2019-03-18 16:36 | Outpatient (CLI) | payer OTHER, SELFPAY ==
[2017-01-12 10:55] VITALS: BMI 32.1
[2019-03-18 17:49] LABS: Absolute Lymphocyte Count 2.62 X10^3/uL (0.83-4.51); Basophil# 0.06 X10^3/uL; Basophil% 0.9 % (0-1); Eosinophil# 0.08 X10^3/uL; Eosinophils% 1.2 % (0-5); Hematocrit 43.2 % (37-47); Hemoglobin 14.2 g/dL (12.0-15.0); Lymphocyte # 2.62 X10^3/ul (4.0); Lymphocyte % 38.9 % (19-41); Mean Corp Hgb Conc 32.9 g/dL (32-36); Mean Corpuscular Hgb 31.3 pg (27.0-32.0); Mean Corpuscular Volume 95.2 fL (81-99); Mean Platelet Vol. 9.3 fl (6.2-12.0); Monocyte# 0.96 X10^3/uL; Monocyte% 14.3 % (0-10); NRBC Flagged by Analyzer 0 % (0-5); Neutrophil % 44.6 % (47-70); Platelet Count 394 K/mm3 (150-450); RBC Distribution Width SD 42.1 fl (35.1-43.9); Red Blood Count 4.54 M/mm3 (4.2-5.4); White Blood Count 6.7 K/mm3 (4.4-11.0)
[2019-03-18 18:43] LABS: AST(SGOT) 20 U/L (15-37); Alanine Aminotransfer ALT/SGPT 38 U/L (13-56); Albumin, Serum 3.7 g/dL (3.2-5.0); Alkaline Phosphatase 85 U/L (45-117); Anion Gap 6 (5-15); BUN 11 mg/dL (7-18); BUN/Creat Ratio 12.4 RATIO (10-20); Calcium,Total 9.2 mg/dL (8.5-10.1); Chloride 108 mmol/L (98-107); Creatinine, Serum 0.89 mg/dL (0.55-1.02); EST Glomerular Filtration Rate 75 mL/min (>60); Est Glom Filt Rate - Afr Amer 91 mL/min (>60); Globulin 3.7 g/dL (2.2-4.2); Glucose 65 mg/dL (74-106); Potassium 4.5 mmol/L (3.5-5.1); Protein, Total 7.4 g/dL (6.4-8.2); Sodium Level 141 mmol/L (136-145)
== END ==
PROVIDERS: PCP Family Medicine; Referring Provider Internal Medicine Rheumatology; Visit Provider Internal Medicine Rheumatology
DX: L40.59 Other psoriatic arthropathy (principal); Z79.899 Other long term (current) drug therapy; L40.8 Other psoriasis; M51.37 Other intervertebral disc degeneration, lumbosacral region
CPT/HCPCS: 36415; 80053; 85025

== ENCOUNTER → 2019-06-14 16:40 | Outpatient (CLI) | payer OTHER, SELFPAY ==
[2017-01-12 10:55] VITALS: BMI 32.1
[2019-06-14 17:33] LABS: Absolute Lymphocyte Count 2.23 X10^3/uL (0.83-4.51); Absolute Neutrophil Count 2.4 X10^3/uL (2.0-7.7); Basophil# 0.06 X10^3/uL; Basophil% 1.1 % (0-1); Eosinophils% 1.9 % (0-5); Hematocrit 40.8 % (37-47); Hemoglobin 13.4 g/dL (12.0-15.0); Lymphocyte # 2.23 X10^3/ul (4.0); Lymphocyte % 41.6 % (19-41); Mean Corp Hgb Conc 32.8 g/dL (32-36); Mean Corpuscular Hgb 31.8 pg (27.0-32.0); Mean Corpuscular Volume 96.9 fL (81-99); Monocyte% 11.2 % (0-10); NRBC Flagged by Analyzer 0 % (0-5); Neutrophil # 2.37 X10^3/uL (2.7-7.7); Neutrophil % 44.2 % (47-70); Platelet Count 369 K/mm3 (150-450); RBC Distribution Width CV 13.2 % (11.6-14.6); RBC Distribution Width SD 46.8 fl (35.1-43.9); Red Blood Count 4.21 M/mm3 (4.2-5.4); White Blood Count 5.4 K/mm3 (4.4-11.0)
[2019-06-14 18:33] LABS: ALB/GLOB Ratio 1.1 RATIO (0.9-2.4); AST(SGOT) 72 U/L (15-37); Alanine Aminotransfer ALT/SGPT 144 U/L (13-56); Albumin, Serum 3.7 g/dL (3.2-5.0); Alkaline Phosphatase 96 U/L (45-117); Anion Gap 6 (5-15); BUN 8 mg/dL (7-18); BUN/Creat Ratio 9.2 RATIO (10-20); Calcium,Total 8.9 mg/dL (8.5-10.1); Chloride 109 mmol/L (98-107); Creatinine, Serum 0.87 mg/dL (0.55-1.02); EST Glomerular Filtration Rate 76 mL/min (>60); Est Glom Filt Rate - Afr Amer 92 mL/min (>60); Globulin 3.4 g/dL (2.2-4.2); Glucose 107 mg/dL (74-106); Potassium 3.6 mmol/L (3.5-5.1); Protein, Total 7.1 g/dL (6.4-8.2); Sodium Level 142 mmol/L (136-145)
== END ==
PROVIDERS: PCP Family Medicine; Referring Provider Internal Medicine Rheumatology; Visit Provider Internal Medicine Rheumatology
DX: L40.59 Other psoriatic arthropathy (principal); Z79.899 Other long term (current) drug therapy; L40.8 Other psoriasis; M51.37 Other intervertebral disc degeneration, lumbosacral region; M21.40 Flat foot [pes planus] (acquired), unspecified foot; K21.9 Gastro-esophageal reflux disease without esophagitis; E28.2 Polycystic ovarian syndrome; G47.419 Narcolepsy without cataplexy
CPT/HCPCS: 36415; 80053; 85025

== ENCOUNTER → 2019-08-05 09:03 | Outpatient (CLI) | payer OTHER, SELFPAY ==
--- NOTE | 2019-08-05 09:05 | US_ITS ---
STUDY: ABDOMINAL ULTRASOUND - RIGHT UPPER QUADRANT REASON FOR VISIT: Female, 38 years old ELEVATED LFTS TECHNIQUE: Ultrasound evaluation of the right upper quadrant was performed with real-time and static howell-scale imaging. TECHNICAL QUALITY: Limited. Examination limited due to obesity. COMPARISON: None. FINDINGS: Liver: The liver measures 15.9 cm. There is increased echogenicity consistent with fatty infiltration. The bile ducts are within normal limits. There is hepatic color flow. The direction of portal flow is hepatopetal. There is no demonstrated mass lesion. Gallbladder: Normal distended gallbladder. The gallbladder wall measures 3 mm. There is a negative sonographic Randall''s sign. There is no pericholecystic fluid. There are no gallstones. Common Bile Duct (C.B.D.): The common bile duct measures 4 mm. Pancreas: Normal size of the head, body and tail of the pancreas. There is normal echogenicity of the pancreas. There is no demonstrated pancreatic mass or cyst. Right Kidney: Normal size of the right kidney. The right kidney measures 10.3 cm x 5.3 cm x 4.8 cm. Normal renal cortex. The right cortex measures 2.0 cm. There is no demonstrated renal mass or cyst. There is no right hydronephrosis. US/Abdomen Limited IMPRESSION: Fatty infiltration of the liver. Electronically Signed: Tone Mendieta, at 12:31 EDT , Service support ,
[2019-08-05 10:15] LABS: AST(SGOT) 19 U/L (15-37); Alanine Aminotransfer ALT/SGPT 39 U/L (13-56); Albumin, Serum 3.6 g/dL (3.2-5.0); Alkaline Phosphatase 86 U/L (45-117); Anion Gap 5 (5-15); BUN 10 mg/dL (7-18); Calcium,Total 8.8 mg/dL (8.5-10.1); Chloride 107 mmol/L (98-107); Creatinine, Serum 0.83 mg/dL (0.55-1.02); EST Glomerular Filtration Rate 81 mL/min (>60); Est Glom Filt Rate - Afr Amer 98 mL/min (>60); Globulin 3.5 g/dL (2.2-4.2); Glucose 96 mg/dL (74-106); Potassium 4.2 mmol/L (3.5-5.1); Protein, Total 7.1 g/dL (6.4-8.2); Sodium Level 140 mmol/L (136-145)
== END ==
PROVIDERS: PCP Family Medicine; Referring Provider Internal Medicine Rheumatology; Visit Provider Internal Medicine Rheumatology
DX: L40.59 Other psoriatic arthropathy (principal); Z79.899 Other long term (current) drug therapy; L40.8 Other psoriasis; M51.37 Other intervertebral disc degeneration, lumbosacral region; M21.40 Flat foot [pes planus] (acquired), unspecified foot; K21.9 Gastro-esophageal reflux disease without esophagitis; E28.2 Polycystic ovarian syndrome; G47.419 Narcolepsy without cataplexy
CPT/HCPCS: 36415; 76705; 80053

== ENCOUNTER → 2019-10-05 09:26 | Outpatient (CLI) | payer OTHER, SELFPAY ==
[2017-01-12 10:55] VITALS: BMI 32.1
[2019-10-05 12:29] LABS: Absolute Lymphocyte Count 2.01 X10^3/uL (0.83-4.51); Absolute Neutrophil Count 2.1 X10^3/uL (2.0-7.7); Basophil# 0.04 X10^3/uL; Basophil% 0.8 % (0-1); Eosinophil# 0.08 X10^3/uL; Eosinophils% 1.6 % (0-5); Hematocrit 44.4 % (37-47); Hemoglobin 14.7 g/dL (12.0-15.0); Lymphocyte # 2.01 X10^3/ul (4.0); Lymphocyte % 41.3 % (19-41); Mean Corp Hgb Conc 33.1 g/dL (32-36); Mean Corpuscular Hgb 31.1 pg (27.0-32.0); Mean Corpuscular Volume 94.1 fL (81-99); Mean Platelet Vol. 9.8 fl (6.2-12.0); Monocyte# 0.64 X10^3/uL; Monocyte% 13.1 % (0-10); NRBC Flagged by Analyzer 0 % (0-5); Neutrophil # 2.09 X10^3/uL (2.7-7.7); Platelet Count 377 K/mm3 (150-450); RBC Distribution Width SD 41.8 fl (35.1-43.9); Red Blood Count 4.72 M/mm3 (4.2-5.4); White Blood Count 4.9 K/mm3 (4.4-11.0)
[2019-10-05 12:54] LABS: AST(SGOT) 15 U/L (15-37); Alanine Aminotransfer ALT/SGPT 28 U/L (13-56); Albumin, Serum 3.7 g/dL (3.2-5.0); Alkaline Phosphatase 85 U/L (45-117); Anion Gap 4 (5-15); BUN 8 mg/dL (7-18); BUN/Creat Ratio 9.3 RATIO (10-20); Calcium,Total 9.3 mg/dL (8.5-10.1); Chloride 105 mmol/L (98-107); Creatinine, Serum 0.86 mg/dL (0.55-1.02); EST Glomerular Filtration Rate 78 mL/min (>60); Est Glom Filt Rate - Afr Amer 94 mL/min (>60); Globulin 3.7 g/dL (2.2-4.2); Glucose 91 mg/dL (74-106); Potassium 3.9 mmol/L (3.5-5.1); Protein, Total 7.4 g/dL (6.4-8.2); Sodium Level 139 mmol/L (136-145)
== END ==
PROVIDERS: PCP Family Medicine; Referring Provider Internal Medicine Rheumatology; Visit Provider Internal Medicine Rheumatology
DX: L40.59 Other psoriatic arthropathy (principal); Z79.899 Other long term (current) drug therapy; L40.8 Other psoriasis; M25.511 Pain in right shoulder; M51.37 Other intervertebral disc degeneration, lumbosacral region; M21.40 Flat foot [pes planus] (acquired), unspecified foot; K21.9 Gastro-esophageal reflux disease without esophagitis; E28.2 Polycystic ovarian syndrome; G47.419 Narcolepsy without cataplexy
CPT/HCPCS: 36415; 80053; 85025

== ENCOUNTER → 2019-12-16 15:14 | Outpatient (CLI) | payer OTHER, SELFPAY ==
[2017-01-12 10:55] VITALS: BMI 32.1
[2019-12-16 17:16] LABS: Absolute Lymphocyte Count 2.26 X10^3/uL (0.83-4.51); Absolute Neutrophil Count 4.5 X10^3/uL (2.0-7.7); Basophil# 0.06 X10^3/uL; Basophil% 0.8 % (0-1); Eosinophil# 0.08 X10^3/uL; Hematocrit 39.9 % (37-47); Hemoglobin 13.1 g/dL (12.0-15.0); Lymphocyte # 2.26 X10^3/ul (4.0); Mean Corp Hgb Conc 32.8 g/dL (32-36); Mean Corpuscular Hgb 30.3 pg (27.0-32.0); Mean Corpuscular Volume 92.4 fL (81-99); Mean Platelet Vol. 9.8 fl (6.2-12.0); Monocyte# 0.91 X10^3/uL; Monocyte% 11.7 % (0-10); NRBC Flagged by Analyzer 0 % (0-5); Neutrophil # 4.47 X10^3/uL (2.7-7.7); Neutrophil % 57.2 % (47-70); Platelet Count 331 K/mm3 (150-450); RBC Distribution Width CV 11.9 % (11.6-14.6); RBC Distribution Width SD 41.1 fl (35.1-43.9); Red Blood Count 4.32 M/mm3 (4.2-5.4); White Blood Count 7.8 K/mm3 (4.4-11.0)
[2019-12-16 17:29] LABS: AST(SGOT) 19 U/L (15-37); Alanine Aminotransfer ALT/SGPT 40 U/L (13-56); Albumin, Serum 3.5 g/dL (3.2-5.0); Alkaline Phosphatase 87 U/L (45-117); Anion Gap 4 (5-15); BUN 11 mg/dL (7-18); BUN/Creat Ratio 12.4 RATIO (10-20); Calcium,Total 8.6 mg/dL (8.5-10.1); Chloride 107 mmol/L (98-107); Creatinine, Serum 0.89 mg/dL (0.55-1.02); EST Glomerular Filtration Rate 75 mL/min (>60); Est Glom Filt Rate - Afr Amer 90 mL/min (>60); Globulin 3.4 g/dL (2.2-4.2); Glucose 104 mg/dL (74-106); Protein, Total 6.9 g/dL (6.4-8.2); Sodium Level 139 mmol/L (136-145)
== END ==
PROVIDERS: PCP Family Medicine; Referring Provider Internal Medicine Rheumatology; Visit Provider Internal Medicine Rheumatology
DX: L40.59 Other psoriatic arthropathy (principal); Z79.899 Other long term (current) drug therapy; L40.8 Other psoriasis; M25.511 Pain in right shoulder; M51.37 Other intervertebral disc degeneration, lumbosacral region; M21.40 Flat foot [pes planus] (acquired), unspecified foot; K21.9 Gastro-esophageal reflux disease without esophagitis; E28.2 Polycystic ovarian syndrome; G47.419 Narcolepsy without cataplexy
CPT/HCPCS: 36415; 80053; 85025

== ENCOUNTER → 2020-02-10 15:51 | Outpatient (CLI) | payer OTHER, SELFPAY ==
[2017-01-12 10:55] VITALS: BMI 32.1
[2020-02-10 17:24] LABS: Absolute Lymphocyte Count 2.76 X10^3/uL (0.83-4.51); Absolute Neutrophil Count 4.7 X10^3/uL (2.0-7.7); Basophil# 0.06 X10^3/uL; Basophil% 0.7 % (0-1); Eosinophil# 0.09 X10^3/uL; Hematocrit 39.2 % (37-47); Hemoglobin 13.4 g/dL (12.0-15.0); Lymphocyte # 2.76 X10^3/ul (4.0); Lymphocyte % 32.2 % (19-41); Mean Corp Hgb Conc 34.2 g/dL (32-36); Mean Corpuscular Hgb 31.6 pg (27.0-32.0); Mean Corpuscular Volume 92.5 fL (81-99); Mean Platelet Vol. 9.9 fl (6.2-12.0); Monocyte# 0.98 X10^3/uL; Monocyte% 11.4 % (0-10); NRBC Flagged by Analyzer 0 % (0-5); Neutrophil # 4.67 X10^3/uL (2.7-7.7); Neutrophil % 54.5 % (47-70); Platelet Count 334 K/mm3 (150-450); RBC Distribution Width CV 12.9 % (11.6-14.6); RBC Distribution Width SD 43.3 fl (35.1-43.9); Red Blood Count 4.24 M/mm3 (4.2-5.4); White Blood Count 8.6 K/mm3 (4.4-11.0)
[2020-02-10 17:48] LABS: ALB/GLOB Ratio 1.1 RATIO (0.9-2.4); AST(SGOT) 21 U/L (15-37); Alanine Aminotransfer ALT/SGPT 64 U/L (13-56); Albumin, Serum 3.7 g/dL (3.2-5.0); Alkaline Phosphatase 88 U/L (45-117); Anion Gap 7 (5-15); BUN 15 mg/dL (7-18); BUN/Creat Ratio 20.2 RATIO (10-20); Calcium,Total 8.7 mg/dL (8.5-10.1); Chloride 105 mmol/L (98-107); Creatinine, Serum 0.74 mg/dL (0.55-1.02); EST Glomerular Filtration Rate 92 mL/min (>60); Est Glom Filt Rate - Afr Amer 111 mL/min (>60); Globulin 3.4 g/dL (2.2-4.2); Glucose 88 mg/dL (74-106); Potassium 3.6 mmol/L (3.5-5.1); Protein, Total 7.1 g/dL (6.4-8.2); Sodium Level 137 mmol/L (136-145)
== END ==
PROVIDERS: PCP Family Medicine; Referring Provider Internal Medicine Rheumatology; Visit Provider Internal Medicine Rheumatology
DX: L40.59 Other psoriatic arthropathy (principal); Z79.899 Other long term (current) drug therapy; L40.8 Other psoriasis; M51.37 Other intervertebral disc degeneration, lumbosacral region; M21.40 Flat foot [pes planus] (acquired), unspecified foot; K76.0 Fatty (change of) liver, not elsewhere classified; K21.9 Gastro-esophageal reflux disease without esophagitis; E28.2 Polycystic ovarian syndrome; G47.419 Narcolepsy without cataplexy
CPT/HCPCS: 36415; 80053; 85025

== ENCOUNTER → 2020-03-15 15:41 | Outpatient (CLI) | payer OTHER, SELFPAY ==
[2017-01-12 10:55] VITALS: BMI 32.1
--- NOTE | 2020-03-15 15:43 | BI_ITS ---
MAMMOGRAPHY - BILATERAL SCREENING REASON FOR EXAM: Female, 39 years old. Routine annual screening examination. PERTINENT HISTORY: Grandmother with breast cancer. TECHNIQUE: Digital bilateral breast zoe (3D mammographic acquisition) in the CC and MLO projections. 2-D mediolateral oblique (MLO) and craniocaudad (CC) views of both breasts were obtained. CAD: Full Field Digital Mammography with Computer Added Detection was performed. COMPARISON: Comparison is made with prior examination dated 01/05/2019 and 02/01/2016. FINDINGS: Breast Composition: The breasts are almost entirely fatty. There are no dominant masses or suspicious calcifications. No other significant abnormalities are identified. There has been no significant change since the prior study. BI/SCRN MAMM (CAD)W/ZOE BILAT IMPRESSION: Stable bilateral screening mammogram. Yearly follow-up mammogram recommended. (A) ASSESSMENT CATEGORY: BIRADS Category 1: Negative. A letter regarding these results will be sent to the patient by the facility within 30 days. Approximately 10% of breast cancers are not detected by mammography. A normal mammogram should not delay biopsy of a clinically suspicious abnormality. [id number] Electronically Signed: Tone Mendieta MD at 8:23 EST , Service support ,
== END ==
PROVIDERS: PCP Family Medicine; Referring Provider Student in an Organized Health Care Education/Training Program; Visit Provider Student in an Organized Health Care Education/Training Program
DX: Z12.31 Encounter for screening mammogram for malignant neoplasm of breast (principal)
CPT/HCPCS: 77063; 77067

== ENCOUNTER → 2020-05-29 16:46 | Outpatient (CLI) | payer OTHER, SELFPAY ==
[2017-01-12 10:55] VITALS: BMI 32.1
[2020-03-18 13:11] VITALS: BMI 36.8
[2020-05-29 18:10] LABS: Absolute Lymphocyte Count 2.35 X10^3/uL (0.83-4.51); Absolute Neutrophil Count 2.9 X10^3/uL (2.0-7.7); Basophil# 0.05 X10^3/uL; Basophil% 0.8 % (0-1); Eosinophil# 0.08 X10^3/uL; Eosinophils% 1.3 % (0-5); Hematocrit 42.5 % (37-47); Hemoglobin 13.8 g/dL (12.0-15.0); Lymphocyte # 2.35 X10^3/ul (4.0); Lymphocyte % 38.1 % (19-41); Mean Corp Hgb Conc 32.5 g/dL (32-36); Mean Corpuscular Hgb 30.5 pg (27.0-32.0); Mean Corpuscular Volume 93.8 fL (81-99); Mean Platelet Vol. 10.4 fl (6.2-12.0); Monocyte# 0.73 X10^3/uL; Monocyte% 11.9 % (0-10); NRBC Flagged by Analyzer 0 % (0-5); Neutrophil # 2.94 X10^3/uL (2.7-7.7); Neutrophil % 47.7 % (47-70); Platelet Count 317 K/mm3 (150-450); RBC Distribution Width CV 12.6 % (11.6-14.6); RBC Distribution Width SD 43.4 fl (35.1-43.9); Red Blood Count 4.53 M/mm3 (4.2-5.4); White Blood Count 6.2 K/mm3 (4.4-11.0)
[2020-05-29 18:54] LABS: ALB/GLOB Ratio 1.1 RATIO (0.9-2.4); AST(SGOT) 17 U/L (15-37); Alanine Aminotransfer ALT/SGPT 38 U/L (13-56); Albumin, Serum 3.9 g/dL (3.2-5.0); Alkaline Phosphatase 86 U/L (45-117); Anion Gap 4 (5-15); BUN 16 mg/dL (7-18); BUN/Creat Ratio 22.1 RATIO (10-20); Calcium,Total 9.3 mg/dL (8.5-10.1); Chloride 108 mmol/L (98-107); Creatinine, Serum 0.72 mg/dL (0.55-1.02); EST Glomerular Filtration Rate 94 mL/min (>60); Est Glom Filt Rate - Afr Amer 114 mL/min (>60); Globulin 3.4 g/dL (2.2-4.2); Glucose 78 mg/dL (74-106); Potassium 3.6 mmol/L (3.5-5.1); Protein, Total 7.3 g/dL (6.4-8.2); Sodium Level 140 mmol/L (136-145)
== END ==
PROVIDERS: PCP Family Medicine; Referring Provider Internal Medicine Rheumatology; Visit Provider Internal Medicine Rheumatology
DX: L40.59 Other psoriatic arthropathy (principal); Z79.899 Other long term (current) drug therapy; L40.8 Other psoriasis; M51.37 Other intervertebral disc degeneration, lumbosacral region; M21.40 Flat foot [pes planus] (acquired), unspecified foot; K76.0 Fatty (change of) liver, not elsewhere classified; K21.9 Gastro-esophageal reflux disease without esophagitis; E28.2 Polycystic ovarian syndrome; G47.419 Narcolepsy without cataplexy
CPT/HCPCS: 36415; 80053; 85025

== ENCOUNTER → 2020-09-20 12:17 | Outpatient (CLI) | payer OTHER, SELFPAY ==
[2020-03-18 13:11] VITALS: BMI 36.8
[2020-09-20 15:20] LABS: Absolute Lymphocyte Count 2.35 X10^3/uL (0.83-4.51); Absolute Neutrophil Count 2.3 X10^3/uL (2.0-7.7); Basophil# 0.06 X10^3/uL; Basophil% 1.1 % (0-1); Eosinophil# 0.13 X10^3/uL; Eosinophils% 2.4 % (0-5); Hematocrit 44.1 % (37-47); Hemoglobin 14.4 g/dL (12.0-15.0); Lymphocyte # 2.35 X10^3/ul (0.83-4.51); Mean Corp Hgb Conc 32.7 g/dL (32-36); Mean Corpuscular Hgb 30.2 pg (27.0-32.0); Mean Corpuscular Volume 92.5 fL (81-99); Mean Platelet Vol. 10.7 fl (6.2-12.0); Monocyte# 0.62 X10^3/uL; Monocyte% 11.3 % (0-10); NRBC Flagged by Analyzer 0 % (0-5); Platelet Count 261 K/mm3 (150-450); RBC Distribution Width CV 12.6 % (11.6-14.6); RBC Distribution Width SD 43.5 fl (35.1-43.9); Red Blood Count 4.77 M/mm3 (4.2-5.4); White Blood Count 5.5 K/mm3 (4.4-11.0)
[2020-09-20 15:51] LABS: AST(SGOT) 17 U/L (15-37); Alanine Aminotransfer ALT/SGPT 33 U/L (13-56); Albumin, Serum 3.6 g/dL (3.2-5.0); Alkaline Phosphatase 90 U/L (45-117); Anion Gap 9 (5-15); BUN 11 mg/dL (7-18); BUN/Creat Ratio 16.6 RATIO (10-20); Calcium,Total 8.9 mg/dL (8.5-10.1); Chloride 104 mmol/L (98-107); Creatinine, Serum 0.66 mg/dL (0.55-1.02); EST Glomerular Filtration Rate 104 mL/min (>60); Est Glom Filt Rate - Afr Amer 126 mL/min (>60); Globulin 3.7 g/dL (2.2-4.2); Glucose 87 mg/dL (74-106); Potassium 4.1 mmol/L (3.5-5.1); Protein, Total 7.3 g/dL (6.4-8.2); Sodium Level 138 mmol/L (136-145)
== END ==
PROVIDERS: PCP Family Medicine; Referring Provider Internal Medicine Rheumatology; Visit Provider Internal Medicine Rheumatology
DX: L40.59 Other psoriatic arthropathy (principal); Z79.899 Other long term (current) drug therapy; L40.8 Other psoriasis; M51.37 Other intervertebral disc degeneration, lumbosacral region; M21.40 Flat foot [pes planus] (acquired), unspecified foot; K76.0 Fatty (change of) liver, not elsewhere classified; K21.9 Gastro-esophageal reflux disease without esophagitis; E28.2 Polycystic ovarian syndrome; G47.419 Narcolepsy without cataplexy
CPT/HCPCS: 36415; 80053; 85025

== ENCOUNTER → 2020-12-18 15:50 | Outpatient (CLI) | payer OTHER, SELFPAY ==
[2020-03-18 13:11] VITALS: BMI 36.8
[2020-12-18 16:52] LABS: Absolute Lymphocyte Count 2.11 X10^3/uL (0.83-4.51); Basophil# 0.05 X10^3/uL; Basophil% 0.8 % (0-1); Eosinophil# 0.05 X10^3/uL; Eosinophils% 0.8 % (0-5); Hematocrit 39.5 % (37-47); Hemoglobin 13.5 g/dL (12.0-15.0); Lymphocyte # 2.11 X10^3/ul (0.83-4.51); Lymphocyte % 35.5 % (19-41); Mean Corp Hgb Conc 34.2 g/dL (32-36); Mean Corpuscular Hgb 31.6 pg (27.0-32.0); Mean Corpuscular Volume 92.5 fL (81-99); Mean Platelet Vol. 9.5 fl (6.2-12.0); Monocyte# 0.73 X10^3/uL; Monocyte% 12.3 % (0-10); NRBC Flagged by Analyzer 0 % (0-5); Neutrophil % 50.4 % (47-70); Platelet Count 318 K/mm3 (150-450); RBC Distribution Width CV 12.3 % (11.6-14.6); Red Blood Count 4.27 M/mm3 (4.2-5.4)
[2020-12-18 17:07] LABS: ALB/GLOB Ratio 0.9 RATIO (0.9-2.4); AST(SGOT) 15 U/L (15-37); Alanine Aminotransfer ALT/SGPT 26 U/L (13-56); Albumin, Serum 3.4 g/dL (3.2-5.0); Alkaline Phosphatase 85 U/L (45-117); Anion Gap 8 (5-15); BUN 17 mg/dL (7-18); BUN/Creat Ratio 23.2 RATIO (10-20); Calcium,Total 8.8 mg/dL (8.5-10.1); Chloride 108 mmol/L (98-107); Creatinine, Serum 0.73 mg/dL (0.55-1.02); EST Glomerular Filtration Rate 93 mL/min (>60); Est Glom Filt Rate - Afr Amer 112 mL/min (>60); Globulin 3.6 g/dL (2.2-4.2); Glucose 94 mg/dL (74-106); Potassium 3.9 mmol/L (3.5-5.1); Sodium Level 140 mmol/L (136-145)
== END ==
PROVIDERS: PCP Family Medicine; Referring Provider Internal Medicine Rheumatology; Visit Provider Internal Medicine Rheumatology
DX: L40.59 Other psoriatic arthropathy (principal); Z79.899 Other long term (current) drug therapy; L40.8 Other psoriasis; M51.37 Other intervertebral disc degeneration, lumbosacral region; M21.40 Flat foot [pes planus] (acquired), unspecified foot; K76.0 Fatty (change of) liver, not elsewhere classified; K21.9 Gastro-esophageal reflux disease without esophagitis; E28.2 Polycystic ovarian syndrome; G47.419 Narcolepsy without cataplexy
CPT/HCPCS: 36415; 80053; 85025

== ENCOUNTER → 2020-12-19 16:28 | Outpatient (CLI) | payer OTHER, SELFPAY ==
[2020-12-26 00:07] LABS: QNTFERON TB Mitogen Value > 10.00 IU/mL (.); QNTFERON TB Nil Value 0.01 IU/mL (.); QNTFERON TB1+ Ag Value 0.06 IU/mL (.); QNTFERON TB2+ Ag Value 0.03 IU/mL (.)
[2020-12-26 13:36] LABS: QNTIFERON TB Positive Criteria Negative (Negative)
== END ==
PROVIDERS: PCP Family Medicine; Referring Provider Internal Medicine Rheumatology; Visit Provider Internal Medicine Rheumatology
DX: L40.59 Other psoriatic arthropathy (principal); Z79.899 Other long term (current) drug therapy; L40.8 Other psoriasis; M51.37 Other intervertebral disc degeneration, lumbosacral region; M21.40 Flat foot [pes planus] (acquired), unspecified foot; K76.0 Fatty (change of) liver, not elsewhere classified; K21.9 Gastro-esophageal reflux disease without esophagitis; E28.2 Polycystic ovarian syndrome; G47.419 Narcolepsy without cataplexy
CPT/HCPCS: 36415; 86480

== ENCOUNTER 2021-02-26 11:18 | Outpatient (CLI) | payer OTHER, SELFPAY | END 2021-02-26 23:59 | disposition short-term general hospital (02) | LOC: LABSPEC 11:19 | PROVIDERS: PCP Family Medicine; Referring Provider Physician Assistant Surgical; Visit Provider Physician Assistant Surgical | DX: U07.1 COVID-19 (principal) | CPT/HCPCS: 87635; U0003; U0005 ==

== ENCOUNTER 2021-03-01 12:51 | Outpatient (CLI) | payer OTHER, SELFPAY ==
[2021-03-01 13:08] VITALS: BP 152/105; PULSE 109; RESP 16; TEMP 36.8; O2SAT 100; BMI 31.7
[2021-03-01] MEDS: 0.9% Saline Lock 10 ML Syringe IV (13:15)
[2021-03-01 13:41] VITALS: BP 135/97; PULSE 94; RESP 16; TEMP 37.1; O2SAT 96
[2021-03-01 14:41] VITALS: BP 135/81; PULSE 96; RESP 16; TEMP 36.8; O2SAT 99
== END 2021-03-01 23:59 | disposition home or self-care (01) ==
LOC: MS3OUT 12:52 → MS3 12:53
PROVIDERS: PCP Family Medicine; Referring Provider Nurse Practitioner Adult Health; Visit Provider Nurse Practitioner Adult Health
DX: Z23 Encounter for immunization (principal); U07.1 COVID-19
CPT/HCPCS: J7050; M0243; A4216; Q0244

== ENCOUNTER 2021-04-11 15:37 | Outpatient (CLI) | payer OTHER, SELFPAY ==
[2021-04-11 16:38] LABS: Absolute Lymphocyte Count 2.61 X10^3/uL (0.83-4.51); Absolute Neutrophil Count 3.3 X10^3/uL (2.0-7.7); Basophil# 0.06 X10^3/uL; Basophil% 0.9 % (0-1); Eosinophil# 0.07 X10^3/uL; Hemoglobin 14.3 g/dL (12.0-15.0); Lymphocyte # 2.61 X10^3/ul (0.83-4.51); Lymphocyte % 37.7 % (19-41); Mean Corp Hgb Conc 34.9 g/dL (32-36); Mean Corpuscular Hgb 31.8 pg (27.0-32.0); Mean Corpuscular Volume 91.1 fL (81-99); Mean Platelet Vol. 9.4 fl (6.2-12.0); Monocyte# 0.88 X10^3/uL; Monocyte% 12.7 % (0-10); NRBC Flagged by Analyzer 0 % (0-5); Neutrophil # 3.29 X10^3/uL (2.7-7.7); Neutrophil % 47.6 % (47-70); Platelet Count 364 K/mm3 (150-450); RBC Distribution Width CV 12.5 % (11.6-14.6); RBC Distribution Width SD 41.3 fl (35.1-43.9); White Blood Count 6.9 K/mm3 (4.4-11.0)
[2021-04-11 17:33] LABS: ALB/GLOB Ratio 0.9 RATIO (0.9-2.4); AST(SGOT) 13 U/L (15-37); Alanine Aminotransfer ALT/SGPT 26 U/L (13-56); Albumin, Serum 3.6 g/dL (3.2-5.0); Alkaline Phosphatase 76 U/L (45-117); Anion Gap 7 (5-15); BUN 16 mg/dL (7-18); BUN/Creat Ratio 20.8 RATIO (10-20); Chloride 105 mmol/L (98-107); Creatinine, Serum 0.77 mg/dL (0.55-1.02); EST Glomerular Filtration Rate 87 mL/min (>60); Est Glom Filt Rate - Afr Amer 106 mL/min (>60); Globulin 3.8 g/dL (2.2-4.2); Glucose 85 mg/dL (74-106); Protein, Total 7.4 g/dL (6.4-8.2); Sodium Level 137 mmol/L (136-145)
== END 2021-04-11 23:59 | disposition home or self-care (01) ==
LOC: BIMLAB 15:37
PROVIDERS: PCP Family Medicine; Referring Provider Internal Medicine Rheumatology; Visit Provider Internal Medicine Rheumatology
DX: L40.59 Other psoriatic arthropathy (principal); L40.8 Other psoriasis; M51.37 Other intervertebral disc degeneration, lumbosacral region; M21.40 Flat foot [pes planus] (acquired), unspecified foot; K76.0 Fatty (change of) liver, not elsewhere classified; K21.9 Gastro-esophageal reflux disease without esophagitis; E28.2 Polycystic ovarian syndrome; G47.419 Narcolepsy without cataplexy; Z79.899 Other long term (current) drug therapy
CPT/HCPCS: 36415; 80053; 85025

== ENCOUNTER 2021-05-06 10:48 | Outpatient (CLI) | payer OTHER, SELFPAY ==
--- NOTE | 2021-05-06 10:50 | BI_ITS ---
MAMMOGRAPHY - BILATERAL SCREENING 3-D TOMOSYNTHESIS REASON FOR EXAM: Female, 40 years old. SCREENING PERTINENT HISTORY: No significant family history. TECHNIQUE: 2-D mammograms and 3-D Tomosynthesis of the breast (s) were performed. CAD was performed. COMPARISON: 03/15/2020 FINDINGS: The breast composition is composed of scattered fibroglandular density. Scattered benign calcifications are seen. No dense spiculated masses or suspicious microcalcifications are identified. No architectural distortion is identified. There is no skin thickening or retraction. There has been no significant change since the prior study. BI/SCRN MAMM (CAD)W/ZOE BILAT IMPRESSION: No mammographic signs of malignancy. Routine yearly mammograms recommended. ASSESSMENT CATEGORY: BIRADS Category 1: Negative. A letter regarding these results will be sent to the patient by the facility within 30 days. FOLLOW UP RECOMMENDATION: Yearly follow up mammogram recommended. (A) Approximately 10% of breast cancers are not detected by mammography. A normal mammogram should not delay biopsy of a clinically suspicious abnormality. Electronically Signed: Federico Toure MD at 14:42 EDT ,
== END 2021-05-06 23:59 | disposition home or self-care (01) ==
LOC: OPBI 10:48
PROVIDERS: PCP Family Medicine; Visit Provider Student in an Organized Health Care Education/Training Program
DX: Z12.31 Encounter for screening mammogram for malignant neoplasm of breast (principal)
CPT/HCPCS: 77063; 77067

== ENCOUNTER 2021-07-11 04:48 | Emergency (ER) | payer OTHER, SELFPAY ==
[2021-07-11 04:49] VITALS: BP 139/87; PULSE 72; RESP 16; TEMP 36.3; O2SAT 98; BMI 35.2
[2021-07-11 04:52] VITALS: BP 139/87; PULSE 72; RESP 16; TEMP 36.3; O2SAT 98
[2021-07-11 05:11] LABS: Mucous, Urine 0 SEEN /hpf (<or=2+); Red Blood Cells-Urine 0 SEEN /hpf (0-5)
--- NOTE | 2021-07-11 05:11 | CT_ITS ---
STUDY: CT ABDOMEN AND PELVIS WITH CONTRAST REASON FOR EXAM: Female, 40 years old. abdominal pain RADIATION DOSAGE (If Supplied By Facility): CTDIvol = ( 15.23 ) mGy, DLP = ( 1133.23 ) mGycm TECHNIQUE: Transaxial images were obtained from the dome of the diaphragm to the symphysis pubis without oral contrast. IV 100mL Isovue-370 was administered. Sagittal and coronal images were reconstructed. Individualized dose optimization techniques were used for this CT. COMPARISON: None. FINDINGS: The visualized lung bases are unremarkable. The visualized portions of the heart are within normal limits. Normal liver. Normal gallbladder and extrahepatic biliary system. Normal spleen. Normal pancreas. Normal bilateral adrenal glands. Normal right kidney. Normal left kidney. Normal visualized stomach. Normal small intestine. Normal colon. The appendix is visualized and appears normal. Normal abdominal aorta. Normal inferior vena cava. Normal retroperitoneum. Normal urinary bladder. Normal abdominal wall. Normal osseous structures. There is a 2.3 cm left ovarian cyst. CT/Abdomen/Pelvis W IV Cont ONLY IMPRESSION: Small left ovarian cyst. Electronically Signed: Elliott Freitas MD at 6:53 EDT ,
[2021-07-11 05:12] LABS: Color, Urine Yellow (Yellow); Glucose, Dipstick Normal (Normal); Ketone-Dipstick Negative (Negative); Leukocyte Esterase-Dipstick Negative /ul (Negative); Nitrite-Dipstick Negative (Negative); Occult Blood-Urine 10 /ul (Negative); Protein-Dipstick 15 mg/dl (Negative); Urine Bilirubin Dipstick Negative (Negative); Urine Clarity Clear (Clear); Urine Urobilinogen Normal (Normal)
--- NOTE | 2021-07-11 05:12 | EDS_ITS ---
HPI History of Present Illness Chief Complaint: Abd Pain Informant: patient Narrative Narrative: 40-year-old female presenting to the emergency room with lower abdominal pain. Patient states symptoms began on the left side of her abdomen approximately 2 days ago. She states it was tolerable reminded her of menstrual cramps. She states that yesterday the pain moved to the right but was still also on the left. Then tonight it became severe. She tells me she has been given a diagnosis of PCOS but has never had a documented ovarian cyst. She states that she has been having bowel movements but states that earlier when she woke up her pain was a little bit higher in her abdomen and now she is wondering if she could be developing diarrhea. No nausea vomiting. No fevers. No urinary symptoms. No blood noted in the urine at home. Movement does not make the pain worse. PFSH PFSH Medical History (Updated 07/11/21 @ 07:[address] Luis A Merino DO) PCOS (polycystic ovarian syndrome) Home Medications adalimumab [Humira(CF) Pen] 40 mg SUBCUT 03/01/21 [History Last Taken Unknown] lansoprazole [Prevacid] 15 mg PO DAILY 03/01/21 [History Last Taken Unknown] prednisone 10 mg PO PRN PRN 03/01/21 [History Last Taken Unknown] hydrocodone-acetaminophen 1 tab PO Q6H PRN PRN 3 Days #12 tablet 07/11/21 [Rx Last Taken Unknown] magnesium citrate 300 ml PO X1 PRN #2 bottle 07/11/21 [Rx Last Taken Unknown] Allergy/AdvReac Type Severity Reaction Status Date / Time cephalexin monohydrate Allergy Hives Verified 07/11/21 04:52 [From Keflex] Penicillins [PCN] Allergy Anaphylaxis Verified 07/11/21 04:52 tramadol HCl [From Ultram] Allergy Hives Verified 07/11/21 04:52 Social History (Updated 07/11/21 @ 05:[address] Luis A Merino DO) Smoking Status: Never smoker substance use type: does not use ROS ROS ED Constitutional Constitutional ED: Denies chills, fever(s) or weight loss Eyes Eyes: Denies change in vision or diplopia ENT ENT ED: Denies ear pain, rhinorrhea or sore throat Cardiovascular Cardiovascular: Denies chest pain, orthopnea, palpitations or racing heartbeat Respiratory/Chest Respiratory/Chest: Denies cough, dyspnea or orthopnea Gastrointestinal Gastrointestinal: Reports abdominal pain; Denies diarrhea, nausea or vomiting Genitourinary Genitourinary ED: Denies dysuria, hematuria or urinary frequency Musculoskeletal Musculoskeletal: Denies arthralgias or myalgias Integumentary Denies abscess or rash Neurologic Neurologic: Denies headache(s) or weakness Psychiatric Psychiatric: Denies anxiety, depression, suicidal ideation or suicidal thoughts Endocrine Endocrinology: Denies polydipsia, polyphagia or polyuria Allergic/Immunologic Allergic/Immunologic ED: Denies mouth swelling, tongue swelling or urticaria EXAM Physical Exam Const Vital Signs: 07/11/21 04:49 07/11/21 04:52 07/11/21 07:00 Temperature 97.3 F L 97.3 F L Temperature Source Oral Oral Pulse Rate 72 72 71 Respiratory Rate 16 16 15 Blood Pressure 139/87 H 139/87 H 138/62 H Blood Pressure Mean 104 104 87 Pulse Ox 98 98 98 Oxygen Delivery Method Room Air Room Air Room Air Positive well nourished, well developed and obese General Appearance ED: well developed Nutritional Appearance: obese HEENT Reports normocephalic, head/scalp atraumatic, TM's clear and moist mucous membranes Negative for trauma Tympanic Membrane ED: Yes TM's clear Eyes PERRL and EOMs intact bilaterally Neck no lymphadenopathy, supple and no JVD Resp normal respiratory effort and clear to auscultation bilaterally Cardio regular rate, regular rhythm and no murmurs GI normal to inspection, nondistended, normoactive bowel sounds and non-tender Palpation: soft Back/Spine no CVA tenderness and normal ROM Extremity normal to inspection General Extremety ED: Negative for edema General Extremity: Negative for edema Neuro oriented x3 and CN's II-XII intact bilaterally Sensorium / Orientation: alert Motor Exam: strength 5/5 throughout Psych mental status grossly normal Mood & Affect: Negative for depressed or tearful Skin no rashes or lesions noted and no wounds MDM MDM MDM Narrative Medical decision making narrative: White count of 10.1. CMP is negative. test is negative. Urinalysis negative. CT down pelvis demonstrates a 2.3 cm cyst on the left ovary. But I do not feel that that fully explains the patient's pain. I am going to write for her to have pain medicine as well as some mag citrate. There is this question of whether or not she still feels that she needs to have a significant bowel movement. Patient given return instructions notes understanding the plan Lab Data Attestation: I reviewed the patient's lab results. Labs: Laboratory Results - last 24 hr 07/11/21 07/11/21 07/11/21 05:00 05:00 05:00 WBC 10.1 RBC 4.82 Hgb 15.2 H Hct 44.0 MCV 91.3 MCH 31.5 MCHC 34.5 RDW Std Deviation 40.5 RDW Coeff of [place] 12.2 Plt Count 415 MPV 9.2 Immature Gran % (Auto) 0.300 Neut % (Auto) 51.0 Lymph % (Auto) 35.0 [place] % (Auto) 11.9 H Eos % (Auto) 1.0 Baso % (Auto) 0.8 Absolute Neuts (auto) 5.2 Absolute Lymphs (auto) 3.55 Nucleated RBC % 0 Sodium 138 Potassium 3.5 Chloride 104 Carbon Dioxide 29.0 Anion Gap 5 BUN 15 Creatinine 0.87 Estim Creat Clear Calc 72.74 Est GFR (MDRD) Af Amer 92 Est GFR (MDRD) Non-Af 76 BUN/Creatinine Ratio 17.2 Glucose 126 H Calcium 9.0 Total Bilirubin 0.50 AST 11 L ALT 22 Alkaline Phosphatase 82 Total Protein 7.2 Albumin 3.6 Globulin 3.6 Albumin/Globulin Ratio 1.0 Serum , Qual NEGATIVE Urine Color Urine Clarity Urine pH Ur Specific [place] Urine Protein Urine Glucose (UA) Urine Ketones Urine Occult Blood Urine Nitrite Urine Bilirubin Urine Urobilinogen Ur Leukocyte Esterase Urine RBC Urine WBC Ur Squamous Epith Cells Amorphous Sediment Urine Bacteria Urine Mucus 07/11/21 05:03 WBC RBC Hgb Hct MCV MCH MCHC RDW Std Deviation RDW Coeff of [place] Plt Count MPV Immature Gran % (Auto) Neut % (Auto) Lymph % (Auto) [place] % (Auto) Eos % (Auto) Baso % (Auto) Absolute Neuts (auto) Absolute Lymphs (auto) Nucleated RBC % Sodium Potassium Chloride Carbon Dioxide Anion Gap BUN Creatinine Estim Creat Clear Calc Est GFR (MDRD) Af Amer Est GFR (MDRD) Non-Af BUN/Creatinine Ratio Glucose Calcium Total Bilirubin AST ALT Alkaline Phosphatase Total Protein Albumin Globulin Albumin/Globulin Ratio Serum , Qual Urine Color Yellow Urine Clarity Clear Urine pH 6.0 Ur Specific [place] 1.020 Urine Protein 15 H Urine Glucose (UA) Normal Urine Ketones Negative Urine Occult Blood 10 H Urine Nitrite Negative Urine Bilirubin Negative Urine Urobilinogen Normal Ur Leukocyte Esterase Negative Urine RBC 0 SEEN Urine WBC 0-5 SEEN Ur Squamous Epith Cells 0-5 SEEN Amorphous Sediment RARE Urine Bacteria 1+ Urine Mucus 0 SEEN Radiography Diagnostic Testing: Clinical Impression(s) from Imaging Studies Abdomen/Pelvis CT 07/11/21 05:11 IMPRESSION: Small left ovarian cyst. Electronically Signed: Elliott Freitas MD at 6:53 EDT , Discharge Plan Triage Chief Complaint: Abd Pain ED Provider: Luis A Merino Dx/Rx/DC Orders Clinical Impression: Ovarian cyst, Abdominal pain Instructions: ED Abdominal Pain Unkn Cause Fem, ED Ovarian Cyst Prescriptions: New hydrocodone-acetaminophen [hydrocodone-acetaminophen] 1 TABLET tablet 1 tab PO Q6H PRN PRN (Reason: Pain) 3 Days Qty: 12 RF: 0 magnesium citrate Solution 300 ml PO X1 PRN (Reason: constipation) Qty: 2 RF: 0 No Action prednisone 10 mg Tablet 10 mg PO PRN PRN (Reason: ARTHRITIS) RF: 0 lansoprazole [Prevacid] 15 mg Capsule,Delayed Release(Dr/Ec) 15 mg PO DAILY RF: 0 Humira(CF) Pen 40 mg/0.4 mL pen injector kit 40 mg SUBCUT RF: 0 Primary Care Provider: David Long Referrals: David Long MD [Primary Care Provider] - As soon as possible Activity Restrictions/Additional Instructions: If any changes please return to the emergency department. Disposition Disposition: Home, Self Care
[2021-07-11 05:17] LABS: Absolute Lymphocyte Count 3.55 X10^3/uL (0.83-4.51); Absolute Neutrophil Count 5.2 X10^3/uL (2.0-7.7); Basophil# 0.08 X10^3/uL; Basophil% 0.8 % (0-1); Hemoglobin 15.2 g/dL (12.0-15.0); Lymphocyte # 3.55 X10^3/ul (0.83-4.51); Mean Corp Hgb Conc 34.5 g/dL (32-36); Mean Corpuscular Hgb 31.5 pg (27.0-32.0); Mean Corpuscular Volume 91.3 fL (81-99); Mean Platelet Vol. 9.2 fl (6.2-12.0); Monocyte# 1.21 X10^3/uL; Monocyte% 11.9 % (0-10); NRBC Flagged by Analyzer 0 % (0-5); Neutrophil # 5.17 X10^3/uL (2.7-7.7); Platelet Count 415 K/mm3 (150-450); RBC Distribution Width CV 12.2 % (11.6-14.6); RBC Distribution Width SD 40.5 fl (35.1-43.9); Red Blood Count 4.82 M/mm3 (4.2-5.4); White Blood Count 10.1 K/mm3 (4.4-11.0)
[2021-07-11] MEDS: Ketorolac 30 MG/ML Syringe IV (05:17)
[2021-07-11 05:43] LABS: Amorphous Sediment RARE; Bacteria 1+ /hpf (None Seen); Squamous Epithelial Cells - UA 0-5 SEEN /hpf (5-10); White Blood Cells 0-5 SEEN /hpf (0-5)
[2021-07-11 05:44] LABS: Internal QC Validated? YES +Cl - CLEAR BKGD; Pregnancy, Serum, hCG Quali. NEGATIVE Negative
[2021-07-11 05:52] LABS: AST(SGOT) 11 U/L (15-37); Alanine Aminotransfer ALT/SGPT 22 U/L (13-56); Albumin, Serum 3.6 g/dL (3.2-5.0); Alkaline Phosphatase 82 U/L (45-117); Anion Gap 5 (5-15); BUN 15 mg/dL (7-18); BUN/Creat Ratio 17.2 RATIO (10-20); Chloride 104 mmol/L (98-107); Creatinine, Serum 0.87 mg/dL (0.55-1.02); EST Glomerular Filtration Rate 76 mL/min (>60); Est Glom Filt Rate - Afr Amer 92 mL/min (>60); Estimated Creatinine Clearance 72.74 ml/min; Globulin 3.6 g/dL (2.2-4.2); Glucose 126 mg/dL (74-106); Potassium 3.5 mmol/L (3.5-5.1); Protein, Total 7.2 g/dL (6.4-8.2); Sodium Level 138 mmol/L (136-145)
[2021-07-11 07:00] VITALS: BP 138/62; PULSE 71; RESP 15; O2SAT 98
[2021-07-11 07:03] VITALS: RESP 16
[2021-07-11] MEDS: Ondansetron 4 MG/2 ML Vial IV (07:12)
[2021-07-11] MEDS: Morphine 4 MG/ML Syringe IV (07:12)
== END 2021-07-11 07:45 | disposition home or self-care (01) ==
PROVIDERS: Emergency Provider Emergency Medicine; PCP Family Medicine; Visit Provider Emergency Medicine
DX: N83.202 Unspecified ovarian cyst, left side (principal); E28.2 Polycystic ovarian syndrome; E66.9 Obesity, unspecified; Z68.35 Body mass index [BMI] 35.0-35.9, adult
CPT/HCPCS: 74177; 80053; 81001; 84703; 85025; 96374; 96375; 99283; Q9967; A4216; J2405

== ENCOUNTER → 2021-08-01 | Outpatient (CLI) | payer OTHER, SELFPAY ==
[2021-08-01 12:31] LABS: Absolute Lymphocyte Count 2.02 X10^3/uL (0.83-4.51); Absolute Neutrophil Count 2.4 X10^3/uL (2.0-7.7); Basophil# 0.05 X10^3/uL; Eosinophil# 0.09 X10^3/uL; Eosinophils% 1.7 % (0-5); Hematocrit 41.8 % (37-47); Hemoglobin 14.2 g/dL (12.0-15.0); Lymphocyte # 2.02 X10^3/ul (0.83-4.51); Mean Corpuscular Volume 91.3 fL (81-99); Mean Platelet Vol. 9.5 fl (6.2-12.0); Monocyte# 0.64 X10^3/uL; Monocyte% 12.4 % (0-10); NRBC Flagged by Analyzer 0 % (0-5); Neutrophil # 2.37 X10^3/uL (2.7-7.7); Neutrophil % 45.7 % (47-70); Platelet Count 353 K/mm3 (150-450); RBC Distribution Width CV 12.6 % (11.6-14.6); RBC Distribution Width SD 41.9 fl (35.1-43.9); Red Blood Count 4.58 M/mm3 (4.2-5.4); White Blood Count 5.2 K/mm3 (4.4-11.0)
[2021-08-01 12:54] LABS: ALB/GLOB Ratio 0.9 RATIO (0.9-2.4); AST(SGOT) 17 U/L (15-37); Alanine Aminotransfer ALT/SGPT 31 U/L (13-56); Albumin, Serum 3.6 g/dL (3.2-5.0); Alkaline Phosphatase 83 U/L (45-117); Anion Gap 5 (5-15); BUN 13 mg/dL (7-18); BUN/Creat Ratio 16.2 RATIO (10-20); Calcium,Total 9.3 mg/dL (8.5-10.1); Chloride 106 mmol/L (98-107); EST Glomerular Filtration Rate 83 mL/min (>60); Est Glom Filt Rate - Afr Amer 100 mL/min (>60); Globulin 3.8 g/dL (2.2-4.2); Glucose 95 mg/dL (74-106); Protein, Total 7.4 g/dL (6.4-8.2); Sodium Level 137 mmol/L (136-145)
== END | disposition home or self-care (01) ==
LOC: BIMLAB 09:47
PROVIDERS: PCP Family Medicine; Visit Provider Internal Medicine Rheumatology
DX: L40.59 Other psoriatic arthropathy (principal); Z79.899 Other long term (current) drug therapy; L40.8 Other psoriasis; M51.37 Other intervertebral disc degeneration, lumbosacral region; M21.40 Flat foot [pes planus] (acquired), unspecified foot; K76.0 Fatty (change of) liver, not elsewhere classified; K21.9 Gastro-esophageal reflux disease without esophagitis; E28.2 Polycystic ovarian syndrome; G47.419 Narcolepsy without cataplexy
CPT/HCPCS: 36415; 80053; 85025

== ENCOUNTER → 2022-04-14 | Outpatient (CLI) | payer OTHER, SELFPAY ==
[2022-04-14 15:36] LABS: Absolute Lymphocyte Count 2.32 X10^3/uL (0.83-4.51); Absolute Neutrophil Count 3.1 X10^3/uL (2.0-7.7); Basophil# 0.04 X10^3/uL; Basophil% 0.6 % (0-1); Eosinophil# 0.12 X10^3/uL; Eosinophils% 1.9 % (0-5); Hematocrit 44.8 % (37-47); Hemoglobin 14.7 g/dL (12.0-15.0); Lymphocyte # 2.32 X10^3/ul (0.83-4.51); Lymphocyte % 36.7 % (19-41); Mean Corp Hgb Conc 32.8 g/dL (32-36); Mean Corpuscular Hgb 30.4 pg (27.0-32.0); Mean Corpuscular Volume 92.6 fL (81-99); Mean Platelet Vol. 10.2 fl (6.2-12.0); Monocyte# 0.78 X10^3/uL; Monocyte% 12.3 % (0-10); NRBC Flagged by Analyzer 0 % (0-5); Neutrophil # 3.05 X10^3/uL (2.7-7.7); Neutrophil % 48.2 % (47-70); Platelet Count 370 K/mm3 (150-450); RBC Distribution Width CV 12.6 % (11.6-14.6); RBC Distribution Width SD 43.2 fl (35.1-43.9); Red Blood Count 4.84 M/mm3 (4.2-5.4); White Blood Count 6.3 K/mm3 (4.4-11.0)
[2022-04-14 15:53] LABS: ALB/GLOB Ratio 0.9 RATIO (0.9-2.4); AST(SGOT) 15 U/L (15-37); Alanine Aminotransfer ALT/SGPT 23 U/L (13-56); Albumin, Serum 3.7 g/dL (3.2-5.0); Alkaline Phosphatase 111 U/L (45-117); Anion Gap 8 (5-15); BUN 9 mg/dL (7-18); BUN/Creat Ratio 9.9 RATIO (10-20); Calcium,Total 9.4 mg/dL (8.5-10.1); Chloride 107 mmol/L (98-107); Creatinine, Serum 0.91 mg/dL (0.55-1.02); EST Glomerular Filtration Rate 71 mL/min (>60); Est Glom Filt Rate - Afr Amer 86 mL/min (>60); Globulin 3.9 g/dL (2.2-4.2); Glucose 93 mg/dL (74-106); Potassium 4.1 mmol/L (3.5-5.1); Protein, Total 7.6 g/dL (6.4-8.2); Sodium Level 141 mmol/L (136-145)
== END | disposition home or self-care (01) ==
LOC: MTLAB 12:36
PROVIDERS: PCP Family Medicine; Referring Provider Internal Medicine Rheumatology; Visit Provider Internal Medicine Rheumatology
DX: L40.59 Other psoriatic arthropathy (principal); Z79.899 Other long term (current) drug therapy
CPT/HCPCS: 36415; 80053; 85025